=== PATIENT | male | born 1960 | race American Indian/Alaskan Native ===

== ENCOUNTER 2017-08-30 15:51 | Inpatient (IN) | payer MEDICAID, OTHER ==
[2017-08-30] MEDS ORDERED: NACL 0.9% 1000 ML 1,000 ML IV ONE (17:35)
[2017-08-30] MEDS ORDERED: KEPPRA 1,000 MG/NS 0.75% 100ML 1,000 MG/100 ML BAG IV ONE (18:02)
[2017-08-30] MEDS ORDERED: CATAPRES PO ONE (18:03)
[2017-08-30 18:18] LABS: Anion Gap 25 mmol/L; BUN/Creatinine Ratio 8; Blood Urea Nitrogen 9 mg/dL (9-20); Calcium 9.6 mg/dL (8.4-10.2); Carbon Dioxide 21 mmol/L (22-30); Chloride 94.1 mmol/L (98-107); Glucose 131 mg/dL (75-100); Potassium 4.4 mmol/L (3.6-5.0); Sodium 136 mmol/L (137-145)
[2017-08-30 18:27] LABS: Basophils % (Auto) 0.7 % (0.0-1.8); Eosinophils % (Auto) 0.1 % (0.0-4.3); Hematocrit 42.9 % (35.5-45.6); Hemoglobin 14.5 gm/dl (11.8-15.2); Mean Corpuscular HGB Conc 34 % (32-34); Mean Corpuscular Hemoglobin 32 pg (28-32); Mean Corpuscular Volume 95 fl (84-94); Platelet Count 136 K/mm3 (140-440); Red Cell Distribution Width 13.8 % (13.2-15.2); White Blood Count 6.1 K/mm3 (4.5-11.0)
[2017-08-30 18:49] LABS: INR 1.04 (0.87-1.13)
--- NOTE | 2017-08-30 18:51 | XRay Report ---
FINAL REPORT EXAM: XR CHEST 1V AP HISTORY: Fever/Sepsis TECHNIQUE: AP portable semi erect chest x-ray Comparison: None FINDINGS: Heart size is normal. Lungs are hyperlucent and hyperexpanded with mild reticular coarsening of the interstitium. Early ill-defined infiltrates cannot be excluded. Costophrenic angles are sharp. There is ill-defined somewhat linear density projecting vertically overlying the medial left scapula. Bones are osteopenic. There are clips in the region of the epigastrium. IMPRESSION: Hyperexpanded lungs with mild diffuse reticular coarsening of the interstitium. Early infiltrates cannot be excluded. No significant areas of consolidation or mass lesion identified.
[2017-08-30 18:59] LABS: Albumin 3.8 g/dL (3.9-5); Albumin/Globulin Ratio 0.7 %; Bilirubin,Direct 0.8 mg/dL (0-0.2); Bilirubin,Indirect 1.5 mg/dL; Bilirubin,Total 2.3 mg/dL (0.1-1.2)
[2017-08-30] MEDS ORDERED: ZOFRAN IV ONE ×2 (18:59→21:09)
[2017-08-30] MEDS ORDERED: NORMODYNE IV ONE ×2 (18:59→19:03)
[2017-08-30] MEDS ORDERED: ZOFRAN ONE (19:02)
--- NOTE | 2017-08-30 19:30 | XRay Report ---
FINAL REPORT EXAM: XR SHOULDER 2+V RT HISTORY: r shoulder pain s/p seizure TECHNIQUE: Three views right shoulder Comparison: None FINDINGS: The right distal clavicle is located 2 centimeters superiorly to the acromion. There is distal clavicular osteophytic change. This finding may not be acute. There is no overlying soft tissue swelling. The glenohumeral joint space is preserved. The imaged right lung apex is clear. The scapula and coracoid are unremarkable. IMPRESSION: Right acromioclavicular separation with superior location of the distal clavicle relative to the acromion. This finding may be chronic as there is no overlying soft tissue swelling. There is no acute fracture or dislocation identified.
[2017-08-30] MEDS ORDERED: XYLOCAINE 1% MPF 5 mL INFILTRATI ONE (20:56)
[2017-08-30] MEDS ORDERED: ROCEPHIN 1,000 MG in NACL 0.9% 50 ML IV NR (21:00)
[2017-08-30 21:10] LABS: Urine Drugs of Abuse Note Disclamer
[2017-08-30 21:20] LABS: Bacteria,Urine 2+ /HPF (Negative); Bilirubin,Urine NEG (Negative); Blood,Urine LG (Negative); Ketones,Urine NEG (Negative); Leukocyte Esterase,Urine LG (Negative); Nitrite,Urine NEG (Negative)
[2017-08-30 21:23] LABS: WBC,Urine > 182.0 /HPF (0.0-6.0)
[2017-08-30] MEDS ORDERED: LEVAQUIN 750MG/150ML 750 MG/150 ML BAG IV SCH (22:00)
[2017-08-30] MEDS ORDERED: cefTRIAXone 1 GM in NACL 0.9% 20 ML IV ONE (22:00)
--- NOTE | 2017-08-30 22:01 | Ultrasound Report ---
FINAL REPORT PROCEDURE: US ABDOMEN LIMITED TECHNIQUE: Real-time sonography in multiple planes of the gallbladder fossa and CBD with imaging of the adjacent liver, pancreas, and right kidney was performed with image documentation. CPT 43558 HISTORY: Abdominal pain. Nausea/vomiting. COMPARISON: No prior studies are available for comparison. FINDINGS: Liver: Normal size and echotexture with no evidence of cystic or solid mass lesion. Gallbladder: Fluid filled. No gallstones, wall thickening, pericholecystic fluid, or sonographic Gandara's sign. Gallbladder wall thickness 2.3 mm. Common bile duct 4.1 mm. Intrahepatic bile ducts: Normal . Extrahepatic bile ducts: Normal . Pancreas: Normal as visualized with suboptimal depiction of the pancreatic tail. Right kidney: Normal echotexture. No focal renal mass, calculus, or hydronephrosis. Right kidney measures 11.1 x 4.7 x 5.5 cm, cortical thickness 1.5 cm. Other: No free fluid. IMPRESSION: No sonographic evidence of acute abnormality.
[2017-08-30 22:08] LABS: Creatine Kinase MB 2.6 ng/mL (0.0-4.0)
[2017-08-30 22:09] LABS: Creatine Kinase 92 units/L (55-170)
--- NOTE | 2017-08-30 22:23 | Cat Scan Report ---
FINAL REPORT EXAM: CT HEAD/BRAIN WO/W CON HISTORY: HIV,SEIZURES TECHNIQUE: Axial images were performed both before and following IV contrast administration Comparison: None FINDINGS: There is mild diffuse cortical atrophy, advanced for the patient's chronologic age and left parietal subcortical and centrum semi ovale white matter small vessel ischemic disease. There are no acute extra-axial fluid collections or midline shift. There is no mass effect. There are no intraparenchymal blood products. There is advanced atherosclerotic calcific occlusive disease. There is no abnormal enhancement identified. Orbital cones and apices are unremarkable. Nasal septum is deviated to the left. Clear imaged paranasal sinuses. IMPRESSION: No acute bleed, infarct, or mass. No abnormal enhancement. Cortical atrophy and periventricular white matter small vessel ischemic disease
[2017-08-30] MEDS ORDERED: MORPHINE IV ONE (23:01)
[2017-08-30] MEDS ORDERED: ATIVAN IV PRN (23:19)
[2017-08-30] MEDS ORDERED: ZOFRAN IV PRN (23:20)
[2017-08-30] MEDS ORDERED: TYLENOL PO PRN (23:25)
[2017-08-30] MEDS ORDERED: MORPHINE IV PRN (23:30)
--- NOTE | 2017-08-30 23:40 | Emergency Department Report ---
ED Seizure HPI - General Chief Complaint: Fever Stated Complaint: SEIZURE Time Seen by Provider: 08/30/17 19:18 Source: patient, EMS Mode of arrival: Stretcher Limitations: No Limitations - History of Present Illness Initial Comments: 57 YO MALE HIV/AIDS GENTLE MAN IS HERD WITH SEIZURE BECAUSE HE STOPPED TAKING HIS KEPPRA SO THAT HE COULD DRINK ALCOHOL. PER SISTER HE HAS BEEN AWAY AT ANOTHER RELATIVE'S HOUSE FOR ABOUT A WEEK AND HAS BEEN DRINKING WHILE THERE. PT IS VOMITING AND TREMULOUS. RECENT WEIGHT LOSS,FEVER,TACHYCARDIA. MD Complaint: seizure -: Sudden Description of Episode: tonic-clonic movement Witnessed:: Yes Seizure History: known seizure disorder, history of non-compliance Place: home Possible Precipitating Event: alcohol withdrawal, other (SKIPPING HIS KEPPRA) Associated Symptoms: other (NAUSEA/VOMITING) Treatments Prior to Arrival: none - Related Data Home Medications Medication Instructions Recorded Confirmed Last Taken Azithromycin 1,200 mg PO QWEEK 08/30/17 08/30/17 Unknown Carvedilol [Coreg] 6.25 mg PO BID 08/30/17 08/30/17 Unknown Elviteg/Cob/Emtri/Tenof Alafen 1 each PO QDAY 08/30/17 08/30/17 Unknown [Genvoya Tablet] Ferrous Sulfate [Feosol] 325 mg PO BID 08/30/17 08/30/17 Unknown levETIRAcetam [Keppra TAB] 750 mg PO BID 08/30/17 08/30/17 Unknown Allergies Allergy/AdvReac Type Severity Reaction Status Date / Time No Known Allergies Allergy Unverified 08/09/16 15:58 ED Review of Systems ROS: Stated complaint: SEIZURE Other details as noted in HPI Constitutional: fever. denies: chills Eyes: denies: eye pain, eye discharge, vision change ENT: denies: ear pain, throat pain Respiratory: denies: cough, shortness of breath, wheezing Cardiovascular: palpitations. denies: chest pain Endocrine: no symptoms reported Gastrointestinal: nausea, vomiting. denies: abdominal pain, diarrhea Genitourinary: denies: urgency, dysuria Musculoskeletal: denies: back pain, joint swelling, arthralgia Skin: denies: rash, lesions Neurological: denies: headache, weakness, paresthesias Psychiatric: denies: anxiety, depression Hematological/Lymphatic: denies: easy bleeding, easy bruising ED Past Medical Hx - Past Medical History Previous Medical History?: Yes Hx Hypertension: Yes Hx Seizures: Yes Hx HIV: Yes Additional medical history: HIV, RIGHT AC JOINT SEPARATION - Surgical History Past Surgical History?: Yes Additional Surgical History: CIRCUMCISION - Family History Family history: hypertension - Social History Smoking Status: Former Smoker Substance Use Type: None, Alcohol (ABUSE) - Medications Home Medications: Home Medications Medication Instructions Recorded Confirmed Last Taken Type Azithromycin 1,200 mg PO QWEEK 08/30/17 08/30/17 Unknown History Carvedilol [Coreg] 6.25 mg PO BID 08/30/17 08/30/17 Unknown History Elviteg/Cob/Emtri/Tenof Alafen 1 each PO QDAY 08/30/17 08/30/17 Unknown History [Genvoya Tablet] Ferrous Sulfate [Feosol] 325 mg PO BID 08/30/17 08/30/17 Unknown History levETIRAcetam [Keppra TAB] 750 mg PO BID 08/30/17 08/30/17 Unknown History ED Physical Exam - General Limitations: No Limitations General appearance: alert, in distress (VOMITING), cachectic - Head Head exam: Present: atraumatic, normocephalic - Eye Eye exam: Present: normal appearance, EOMI - ENT ENT exam: Present: mucous membranes dry, other (MULTIPLE MISSING TEETH) - Neck Neck exam: Present: normal inspection, full ROM - Respiratory Respiratory exam: Present: normal lung sounds bilaterally. Absent: respiratory distress, rales, rhonchi, stridor, accessory muscle use, decreased breath sounds - Cardiovascular Cardiovascular Exam: Present: normal rhythm, tachycardia - GI/Abdominal GI/Abdominal exam: Present: soft - Rectal Rectal exam: Present: deferred - Extremities Exam Extremities exam: Present: normal inspection, full ROM, other (RIGHT SHOULDER AC DEFORMITY-OLD) - Back Exam Back exam: Present: normal inspection, full ROM - Neurological Exam Neurological exam: Present: alert (POST-ICTAL WITH EMS), oriented X3, CN II-XII intact - Psychiatric Psychiatric exam: Present: normal affect, normal mood - Skin Skin exam: Present: warm, dry, intact, normal color ED Course Vital Signs 08/30/17 08/30/17 08/30/17 17:24 17:30 17:32 Temperature 99.8 F H Pulse Rate 103 H 130 H Respiratory 16 18 22 Rate Blood Pressure 194/132 227/105 O2 Sat by Pulse 96 Oximetry 08/30/17 08/30/17 08/30/17 17:46 18:00 18:16 Temperature Pulse Rate 104 H 164 H 122 H Respiratory 26 H 26 H 25 H Rate Blood Pressure 194/132 194/132 194/132 O2 Sat by Pulse 86 100 Oximetry 08/30/17 08/30/17 08/30/17 18:30 18:46 19:00 Temperature Pulse Rate 103 H 132 H Respiratory 20 18 Rate Blood Pressure 194/132 O2 Sat by Pulse 94 73 L 100 Oximetry 08/30/17 08/30/17 08/30/17 19:16 19:22 19:27 Temperature 99.8 F H Pulse Rate 90 93 H Respiratory 21 Rate Blood Pressure 153/116 153/116 O2 Sat by Pulse 91 Oximetry 08/30/17 08/30/17 08/30/17 19:30 19:46 20:00 Temperature Pulse Rate 81 Respiratory Rate Blood Pressure 170/113 170/113 178/118 O2 Sat by Pulse 100 100 100 Oximetry 08/30/17 08/30/17 08/30/17 20:16 20:30 20:46 Temperature Pulse Rate 97 H Respiratory 18 Rate Blood Pressure 178/118 186/110 186/110 O2 Sat by Pulse 100 100 100 Oximetry 08/30/17 08/30/17 08/30/17 21:00 21:24 21:30 Temperature Pulse Rate 83 96 H 102 H Respiratory 27 H 21 Rate Blood Pressure 175/105 175/105 181/98 O2 Sat by Pulse 100 76 L Oximetry 08/30/17 08/30/17 08/30/17 21:46 22:08 22:16 Temperature Pulse Rate 97 H Respiratory Rate Blood Pressure 181/98 181/98 181/98 O2 Sat by Pulse 100 71 L 82 L Oximetry 08/30/17 08/30/17 08/30/17 22:30 22:46 23:00 Temperature Pulse Rate 83 87 99 H Respiratory 20 20 Rate Blood Pressure 188/105 181/98 181/117 O2 Sat by Pulse 99 98 100 Oximetry 08/30/17 08/30/17 08/30/17 23:14 23:16 23:30 Temperature Pulse Rate 99 H 98 H Respiratory 18 Rate Blood Pressure 181/117 175/109 O2 Sat by Pulse 100 100 Oximetry 08/30/17 08/31/17 08/31/17 23:46 00:00 00:12 Temperature Pulse Rate 98 H Respiratory 18 Rate Blood Pressure 175/109 172/109 172/109 O2 Sat by Pulse 100 100 100 Oximetry 08/31/17 08/31/17 08/31/17 00:16 00:30 00:46 Temperature Pulse Rate 106 H 99 H 90 Respiratory 14 21 32 H Rate Blood Pressure 172/109 176/103 176/103 O2 Sat by Pulse 100 100 100 Oximetry 08/31/17 08/31/17 08/31/17 01:00 01:16 01:30 Temperature Pulse Rate 105 H 108 H Respiratory 24 16 21 Rate Blood Pressure 176/103 169/113 158/115 O2 Sat by Pulse 94 100 100 Oximetry 08/31/17 08/31/17 08/31/17 01:46 02:00 02:16 Temperature Pulse Rate 107 H 97 H 101 H Respiratory 27 H 22 24 Rate Blood Pressure 158/115 156/114 156/114 O2 Sat by Pulse 100 100 100 Oximetry 08/31/17 08/31/17 02:30 03:12 Temperature Pulse Rate 95 H Respiratory 19 20 Rate Blood Pressure O2 Sat by Pulse 100 97 Oximetry - Reevaluation(s) Reevaluation #1: 08/31/17 03:45 PT IS TACHYCRDIC AND TREMULOUS. I BELIEVE HE IS AN ALCOHOLIC. HE STOPPED HIS KEPPRA INORDER TO DRINK ALCOHOL. ED Medical Decision Making - Lab Data Result diagrams: 08/30/17 17:52 08/30/17 17:52 - EKG Data -: EKG Interpreted by Mt EKG shows normal: sinus rhythm, axis - EKG Data Interpretation: nonspecific ST-T wave kristopher, LV[facility] - Radiology Data Radiology results: report reviewed (CXR:HYPEREXPANDED LUNGS WITH MILD DIFFUSE RETICUAR COARSENING OF THE INTERSTITIUM.EARLY INFILTRATE CANNOT BE RULED OUT XRAY RIGTH SHOULDER:RIGHT ACROMIOCLAVICULAR SEPARATION WITH SUPERIOR LOCATION OF THE DISTAL CLAVICLE RELATICVE TO THE ACROMION, CHRONIC; CT HEAD; NEGATIVE FOR ACUTE, CORTICAL WHITE MATTER DISEASE) Critical care attestation.: If time is entered above; I have spent that time in minutes in the direct care of this critically ill patient, excluding procedure time. ED Disposition Clinical Impression: Seizure, Alcohol abuse, HIV (human immunodeficiency virus infection), Abnormal LFTs CHF exacerbation Qualifiers: Congestive heart failure type: unspecified congestive heart failure type Qualified Code(s): I50.9 - Heart failure, unspecified Sepsis Qualifiers: Sepsis type: sepsis due to unspecified organism Qualified Code(s): A41.9 - Sepsis, unspecified organism UTI (urinary tract infection) Qualifiers: Urinary tract infection type: acute cystitis Hematuria presence: with hematuria Qualified Code(s): N30.01 - Acute cystitis with hematuria Fever Qualifiers: Fever type: unspecified Qualified Code(s): R50.9 - Fever, unspecified Altered mental status Qualifiers: Altered mental status type: unspecified Qualified Code(s): R41.82 - Altered mental status, unspecified Hypertension Qualifiers: Hypertension type: unspecified Qualified Code(s): I10 - Essential (primary) hypertension Disposition: OP ADMIT IP TO THIS HOSP Is pt being admited?: Yes Does the pt Need Aspirin: No Condition: Serious Time of Disposition: 03:59 (CASE REVIEWED WITH DR VAZQUEZ AND [facility] HE IS AWARE OF THE ELEVATD DDIMER AND KERMIT FOLLOW THE V/Q SCAN)
[2017-08-30] MEDS ORDERED: LASIX IV ONE (23:42)
[2017-08-31] MEDS ORDERED: NACL ONE (02:00)
[2017-08-31] MEDS ORDERED: REGLAN IV ONE (02:45)
[2017-08-31] MEDS ORDERED: REGLAN ONE (02:48)
[2017-08-31] MEDS ORDERED: NACL 0.9% 50 ML ONE (02:48)
[2017-08-31] MEDS ORDERED: NACL 0.9% IV ONE (02:53)
[2017-08-31] MEDS ORDERED: REGLAN IV PRN (03:43)
[2017-08-31] MEDS ORDERED: ATIVAN IV ONE (03:43)
[2017-08-31] MEDS ORDERED: VITAMIN B-1 100 MG, FOLVITE 1 MG, INFUVITE 10 ML in NACL 0.9% 1000 ML 1,000 ML IV ONE (03:43)
--- NOTE | 2017-08-31 03:56 | Cat Scan Report ---
FINAL REPORT EXAM: CT ANGIO CHEST HISTORY: DDIMER 1400 FALL RT UPPER CHWEST PAIN TECHNIQUE: A CT angiogram was performed following the intravenous injection of 100 cc of Omnipaque 350. MIP rotational, sagittal and coronal reconstructions were reviewed. FINDINGS: The lungs are emphysematous with changes most prominent in the upper lobes. There scarring in both lung apices. In the left upper lobe there is bronchiectatic changes with non specific nodularity. There is an additional 5.1 millimeter nodule laterally in the right upper lobe. A smaller 2-3 millimeter nodule is seen laterally in the right middle lobe. There is mild scarring in the right lung base There is no evidence of pulmonary embolus or congestion. Heart size is normal. The thoracic aorta is normal in configuration. There is no evidence of adenopathy. There is considerable fluid seen in the esophagus all the way into just below the thoracic inlet. Whether this is related to GE reflux is uncertain. There is a small hiatal hernia at the GE junction. The adrenal glands appear normal. At the thoracic inlet the thyroid gland appears normal. The skeletal structures show no evidence of fracture or soft tissue injury. IMPRESSION: No evidence of pulmonary embolus or aortic dissection. No evidence of acute rib fracture or pneumothorax. Emphysematous changes both lungs with non specific bronchiectatic changes and nodularity in left upper lobe. Additional nodules seen in the right middle lobe and right upper lobe. Follow-up studies recommended 3-6 months to confirm stability. Fluid seen in the esophagus as described with small hiatal hernia. Whether this is related to GE reflux is uncertain
--- NOTE | 2017-08-31 04:55 | Cat Scan Report ---
FINAL REPORT EXAM: CT LOWER EXTREMITY RT W CON HISTORY: DDIMER 1400 TECHNIQUE: Routine axial imaging was obtained of the right lower extremity following the intravenous injection of 100 cc of Omnipaque 350. The imaging was obtained from the mid pelvis to the ankle. Sagittal and coronal reconstructions were reviewed. FINDINGS: There is partially occlusive thrombus extending from the right common femoral vein distally thigh through to the popliteal vein. There is a partially occlusive thrombus in the proximal calf veins as well. The arteries enhance normally. The musculature appears normal. The hip joint is unremarkable. Along the floor pelvis the bladder and prostate gland appear normal. Free fluid is not seen. The skeletal structures are unremarkable. IMPRESSION: Partially occlusive acute deep venous thrombosis extending from common femoral vein through the level of the popliteal vein and proximal calf veins. No evidence of arterial occlusion.
--- NOTE | 2017-08-31 05:08 | Cat Scan Report ---
FINAL REPORT EXAM: CT LOWER EXTREMITY LT W CON HISTORY: DDIMER 1400 TECHNIQUE: Routine axial imaging was obtained of the left lower extremity extending from the mid pelvis to just below the knee following intravenous injection of 100 cc of Omnipaque 350. Sagittal and coronal reconstructions were reviewed. FINDINGS: There are filling defects in the deep venous system extending from common femoral vein through the popliteal vein. There also linear defects in the left external iliac vein. The findings are compatible with acute deep venous thrombosis. The arterial structures enhance normally. The musculature appears normal. There are no bony abnormalities. In the pelvis the bladder appears normal. The prostate gland appears normal also. Free fluid is not seen. IMPRESSION: Partially occlusive DVT extending from the left external iliac vein through the popliteal vein. No evidence of arterial thrombosis.
[2017-08-31] MEDS ORDERED: ZOSYN/NS 3.375GM/50ML 3.375 GM/50 ML BAG IV SCH (06:00)
[2017-08-31] MEDS: KEPPRA PO SCH ×2 (09:57→21:59)
[2017-08-31] MEDS: FEOSOL PO SCH ×2 (09:57→21:58)
[2017-08-31] MEDS: COREG PO SCH ×2 (09:57→21:58)
[2017-08-31] MEDS ORDERED: NON-FORMULARY (Levetiracetam [Keppra Tab] 750 MG) PO SCH (10:00)
[2017-08-31] MEDS ORDERED: NON-FORMULARY (Elviteg/Cob/Emtri/Tenof Alafen [Genvoya Tablet] 1 EACH) PO SCH (10:00)
[2017-08-31] MEDS ORDERED: HEPARIN SUB-Q SCH (10:00)
--- NOTE | 2017-08-31 10:05 | History and Physical Report ---
CHIEF COMPLAINT: Seizure attack. HISTORY OF PRESENT ILLNESS: The patient is a 57-year-old male brought in because of seizure attack. The patient said he has stopped taking his Keppra so that he could drink some alcohol and had seizure attack yesterday morning and was still confused and weak from that and had another attack in the afternoon according to the sister. His sister said that the patient has been drinking alcohol while staying at another relative's house and stopped taking his Keppra. There is a history of associated nausea and vomiting and shaking sensation. The patient also has weight loss, fever, and rapid heart rate. There was no history of chest pain but there was a history of right shoulder pain following a fall that the patient before he had seizure attack yesterday. There was no history of shortness of breath and no history of chills. PAST MEDICAL HISTORY: Pertinent for hypertension, seizure disorder, HIV infection, and right acromioclavicular joint separation. Also pertinent for confusion. FAMILY HISTORY: Pertinent for hypertension. SOCIAL HISTORY: The patient drinks regularly. He used to smoke cigarettes but does not smoke anymore and does not use illicit drugs. MEDICATIONS: The patient is on Zithromax 1200 mg every week and Coreg 6.25 mg p.o. b.i.d., elvitegravir/cobicistat/emtricitabine/tenofovir known as Genvoya tablet 1 by mouth daily. The patient is also on ferrous sulfate 325 mg by mouth twice daily and Keppra 750 mg by mouth twice daily. ALLERGIES: There are no known drug allergies. REVIEW OF SYSTEMS: CONSTITUTIONAL: There is fever, but no chills, no diaphoresis. HEENT: There is no headache or sore throat. CARDIOVASCULAR SYSTEM: There is no chest pain or orthopnea. RESPIRATORY SYSTEM: There is no shortness of breath or cough. GASTROINTESTINAL SYSTEM: Nausea and vomiting present. No abdominal pain. No diarrhea or constipation. NEUROLOGICAL SYSTEM: Seizure attack present and period of confusion noted. MUSCULOSKELETAL SYSTEM: Right shoulder pain noted. No joint swelling. DERMATOLOGICAL: There is no skin rash or itching. GENITOURINARY: There is no dysuria, hematuria or flank pain. Rest of system review is normal. PHYSICAL EXAMINATION: GENERAL: At the time of exam, the patient was found to be alert, oriented x3, not in acute distress. VITAL SIGNS: Shows normal temperature with pulse of 95, respiration 19, blood pressure 156/114 and O2 sat of 100% on room air. HEENT: Shows pupils to be equal, round, and reactive to light and accommodation. Extraocular muscles are intact. NECK: Supple with no JVD or carotid bruit. CARDIOVASCULAR SYSTEM: Show first and second heart sounds with no gallops or murmur. RESPIRATORY SYSTEM: Show good air entry on both sides of the lung with no abnormal breath sounds. GASTROINTESTINAL SYSTEM: Show abdomen to be full, soft, nontender with no organomegaly or rigidity. NEUROLOGICAL: Shows no deficit. MUSCULOSKELETAL: Show no joint swelling or tenderness. DERMATOLOGICAL SYSTEM: Showing no skin rash. GENITOURINARY: Showing no costovertebral angle tenderness. PERTINENT LABORATORY DATA AND IMAGING STUDIES: The patient had CT angiogram of the chest done that shows no pulmonary embolism. The patient had abdominal ultrasound done that shows no sonographic evidence of acute abnormalities. The patient also had CT of the head without contrast done that shows no acute bleed, infarct or mass, with no abnormality seen; however, critical atrophy and periventricular white matter, small vessel ischemic disease was found. The patient had x-ray of the right shoulder done, and x-ray showed no acute fracture or dislocation but there is right acromioclavicular separation with superior location of the distal clavicle, related to the acromion, and this is chronic in nature. The patient also had chest x-ray done that shows hyperextended lungs with mild diffuse reticular changes of the interstitial and the radiologist say that early infiltration cannot be excluded and no significant area of consolidation or mass lesion was found. The patient's lab results show CBC with normal white count, normal hemoglobin and normal hematocrit, with CBC differential showing elevated segmented neutrophil of 88.3%. The patient's D-dimer was high with a value of [address] angio of the chest done. The patient's chemistry shows slightly low sodium of 133 with low chloride of 94.1 and low CO2 of 21 and elevated lactic acid level of 6.6, with a repeat lactic acid 4 hours later showing a value of 3.0. The patient's total bilirubin level was high with a value of 3.3 with a high direct bilirubin of 0.8 and liver transaminases show high AST of 143 with also a high ALT of 82 corresponding to alcohol ingestion. The patient's brain natriuretic peptide level was high with a value of 1868 and albumin level was low with a value of 3.8. The patient's urinalysis showed large urine leukocyte esterase level, negative nitrites and high urine wbc's of greater than 182 with 2+ bacteria suggestive of urinary tract infection. The patient's urine drug screen was unremarkable. DIAGNOSES: 1. Seizure attack. 2. Acute gastritis. 3. Sepsis. PLAN: The patient will be admitted to medical floor and will be on sequential compressive device, a DVT prophylactic measure. The patient will have Neurology consult with Dr. Horan or whoever is on for the day for management of the seizure disorder. The patient will be on Tylenol 650 mg every 4 hours as needed for fever and headache and will also be on heparin 5000 units subcutaneously every 12 hours for DVT prophylaxis. The patient has already received 1000 mg of Keppra IV and will be on Levaquin 750 mg daily for treatment of urinary tract infection. The patient will be on morphine 2 mg IV every 4 hours as needed for pain and will be on normal saline at 150 mL an hour for treatment of sepsis. The patient will be on IV Zofran 4 mg every 8 hours for nausea and vomiting and will be on Zosyn 3.375 grams every 8 hours. The patient's home medication will be reconciled and started accordingly. We will include Keppra 750 mg by mouth twice daily. JOB# [id number] OCN/NTS BETHANYD
[2017-08-31] MEDS ORDERED: ZESTRIL ONE (10:46)
[2017-08-31] MEDS: ZESTRIL PO SCH (10:51)
[2017-08-31] MEDS: NORVASC PO SCH (10:51)
--- NOTE | 2017-08-31 13:26 | Consultation ---
History of Present Illness Consult date: 08/31/17 History of present illness: from the history the seizures are chronic and usually controlled with keppra,,, , however he had stopped that medication w/o taper see old record Medications and Allergies Allergies Allergy/AdvReac Type Severity Reaction Status Date / Time No Known Allergies Allergy Unverified 08/09/16 15:58 Home Medications Medication Instructions Recorded Confirmed Last Taken Type Azithromycin 1,200 mg PO QWEEK 08/30/17 08/30/17 Unknown History Carvedilol [Coreg] 6.25 mg PO BID 08/30/17 08/30/17 Unknown History Elviteg/Cob/Emtri/Tenof Alafen 1 each PO QDAY 08/30/17 08/30/17 Unknown History [Genvoya Tablet] Ferrous Sulfate [Feosol] 325 mg PO BID 08/30/17 08/30/17 Unknown History levETIRAcetam [Keppra TAB] 750 mg PO BID 08/30/17 08/30/17 Unknown History Active Meds: Active Medications Acetaminophen (Tylenol) 650 mg PO Q4H PRN PRN Reason: For Pain/Fever/Headache Amlodipine Besylate (Norvasc) 10 mg PO QDAY [facility] Last Admin: 08/31/17 10:51 Dose: 10 mg Carvedilol (Coreg) 6.25 mg PO BID [facility] Last Admin: 08/31/17 09:57 Dose: 6.25 mg Ferrous Sulfate (Feosol) 325 mg PO BID [facility] Last Admin: 08/31/17 09:57 Dose: 325 mg Heparin Sodium (Porcine) (Heparin) 5,000 unit SUB-Q Q12HR [facility] Last Admin: 08/31/17 09:57 Dose: 5,000 unit Levofloxacin/Dextrose (Levaquin 750mg/150ml) 750 mg in 150 mls @ 100 mls/hr IV DAILY@2200 [facility] Sodium Chloride (Nacl 0.9% 1000 Ml) 1,000 mls @ 150 mls/hr IV DIRECT [facility] Levetiracetam (Keppra) 750 mg PO BID [facility] Last Admin: 08/31/17 09:57 Dose: 750 mg Lisinopril (Zestril) 40 mg PO QDAY [facility] Last Admin: 08/31/17 10:51 Dose: 40 mg Lorazepam (Ativan) 1 mg IV Q2H PRN PRN Reason: Seizures Last Admin: 08/31/17 05:28 Dose: 1 mg Metoclopramide HCl (Reglan) 10 mg IV Q6H PRN PRN Reason: Nausea And Vomiting Miscellaneous Medication (Elviteg/Cob/Emtri/Tenof Alafen [Genvoya Tablet]) 1 each PO QDAY [facility] Last Admin: 08/31/17 10:50 Dose: Not Given Morphine Sulfate (Morphine) 2 mg IV Q4H PRN PRN Reason: Pain, Moderate (4-6) Ondansetron HCl (Zofran) 4 mg IV Q8H PRN PRN Reason: Nausea And Vomiting Physical Examination - Vital Signs Vital Signs: Vital Signs Resp 16 08/30/17 17:24 Results - Laboratory Findings CBC and BMP: 08/30/17 17:52 08/30/17 17:52 Abnormal Lab Findings: Abnormal Labs 08/30/17 08/30/17 08/30/17 17:52 17:52 17:52 MCV 95 H Plt Count 136 L Lymph % (Auto) 6.9 L Lymph # 0.4 L Seg Neutrophils % 88.3 H D-Dimer Sodium 136 L Chloride 94.1 L Carbon Dioxide 21 L Glucose 131 H Lactic Acid 6.60 H* Total Bilirubin Direct Bilirubin AST ALT Alkaline Phosphatase NT-Pro-B Natriuret Pep Total Protein Albumin Urine WBC (Auto) 08/30/17 08/30/17 08/30/17 17:52 21:07 21:20 MCV Plt Count Lymph % (Auto) Lymph # Seg Neutrophils % D-Dimer 1484.20 H Sodium Chloride Carbon Dioxide Glucose Lactic Acid Total Bilirubin 2.30 H Direct Bilirubin 0.8 H AST 143 H ALT 82 H Alkaline Phosphatase 191 H NT-Pro-B Natriuret Pep Total Protein 9.0 H Albumin 3.8 L Urine WBC (Auto) > 182.0 H 08/30/17 21:20 MCV Plt Count Lymph % (Auto) Lymph # Seg Neutrophils % D-Dimer Sodium Chloride Carbon Dioxide Glucose Lactic Acid Total Bilirubin Direct Bilirubin AST ALT Alkaline Phosphatase NT-Pro-B Natriuret Pep 1858 H Total Protein Albumin Urine WBC (Auto)
[2017-08-31] MEDS: NACL 0.9% 1000 ML 1,000 ML IV SCH (17:23)
--- NOTE | 2017-08-31 19:08 | Progress Note ---
Assessment and Plan - Acute heart failure: ECHO, Daily weight, Strick Is and Os, 2G Na diet Furosemide 20 mg iv daily, Carvedilol 25 mg qd, Lisinopril 20 mg qd, Atorvastatin 20 mg po daily. Cardiology consult in view of multiple medical problem such as tansaminasemia and alcohol abuse that will require iv hydration and Banana bag - Seizure d/o: Old. Likely alcohol induce. Pt stopped his Keppra so as to be able to drink alcohol hence this recurrence Continue receommence Keppra. - Alcohol hepatitis: Serial live enzyme. Cautious hydration. GI consult - Jose LE DVT. CTA of chest was negative for PE Commence iv heparine - Thrombocytopenia Serial platelet monitor. Hematology consult - UTI Urine culture yielded no growth to date. -SIRS F/u on blood cx. commence pt on Levaquin - DVT prophylaxisalready on Heparin for DVT and GI PPx with pepcid Subjective Date of service: 08/31/17 Principal diagnosis: Seizure d/o, alcohol induced, CHF, alcoholic hepatits Interval history: Has No seizures today. Denies any abdominal pain or shortness of breath. Objective - Constitutional Vitals: Vital Signs - 12hr 08/31/17 08/31/17 08/31/17 07:30 08:00 08:30 Pulse Rate 117 H 108 H 101 H Respiratory 23 22 22 Rate Blood Pressure 160/108 163/112 163/110 O2 Sat by Pulse 100 100 100 Oximetry 08/31/17 08/31/17 08/31/17 09:00 09:30 09:57 Pulse Rate 99 H 96 H 118 H Respiratory 22 17 Rate Blood Pressure 171/115 173/112 174/112 O2 Sat by Pulse 100 100 Oximetry 08/31/17 08/31/17 08/31/17 10:00 10:30 10:51 Pulse Rate 103 H 92 H 89 Respiratory 15 18 Rate Blood Pressure 176/121 170/109 170/109 O2 Sat by Pulse 94 100 Oximetry 08/31/17 08/31/17 08/31/17 11:00 11:30 12:52 Pulse Rate 96 H 100 H Respiratory 15 24 11 L Rate Blood Pressure 165/106 152/84 152/84 O2 Sat by Pulse 100 Oximetry 08/31/17 08/31/17 08/31/17 13:00 13:30 14:00 Pulse Rate 87 92 H 80 Respiratory 20 15 18 Rate Blood Pressure 126/76 152/84 135/80 O2 Sat by Pulse 100 85 93 Oximetry 08/31/17 16:06 Pulse Rate 81 Respiratory Rate Blood Pressure O2 Sat by Pulse Oximetry General appearance: Present: no acute distress, well-nourished - EENT Eyes: PERRL, EOM intact - Neck Neck: supple, normal ROM - Respiratory Respiratory effort: normal Respiratory: bilateral: CTA - Cardiovascular Rhythm: regular Heart Sounds: Present: S1 & S2. Absent: gallop, rub Extremities: pulses intact, No edema, normal color, Full ROM - Gastrointestinal General gastrointestinal: Present: soft, non-tender, non-distended, normal bowel sounds - Integumentary Integumentary: clear, warm, dry - Musculoskeletal Musculoskeletal: 1, strength equal bilaterally - Neurologic Neurologic: moves all extremities - Psychiatric Psychiatric: memory intact, appropriate mood/affect, intact judgment & insight - Labs CBC & Chem 7: 08/30/17 17:52 08/30/17 17:52 Labs: Abnormal lab results 08/30/17 08/30/17 08/30/17 Range/Units 21:07 21:20 21:20 D-Dimer 1484.20 H (0-234) ng/mlDDU NT-Pro-B Natriuret Pep 1858 H (0-900) pg/mL Urine WBC (Auto) > 182.0 H (0.0-6.0) /HPF - Imaging and cardiology CT scan - chest: report reviewed CT Scan - head: report reviewed
[2017-08-31] MEDS ORDERED: HEPARIN/ 0.45% NACL-25,000 UNIT/500 ML 25,000 UNIT/500 ML BAG IV SCH (20:00)
[2017-08-31 20:59] LABS: Hemoglobin 12.5 gm/dl (11.8-15.2)
[2017-08-31] MEDS ORDERED: HEPARIN 10,000 UNITS/10 ML IV ONE (21:00)
[2017-08-31] MEDS ORDERED: LASIX IV SCH (21:00)
[2017-08-31 21:38] LABS: INR 1.13 (0.87-1.13)
[2017-08-31 21:39] LABS: Partial Thromboplastin Time 34.2 Sec. (24.2-36.6)
[2017-08-31] MEDS: LEVAQUIN 750MG/150ML 750 MG/150 ML BAG IV SCH (22:06)
[2017-08-31] MEDS: FOLVITE 1 MG in NACL 0.9% 50 ML IV SCH (22:16)
[2017-08-31] MEDS: VITAMIN B-1 100 MG in NACL 0.9% 50 ML IV SCH (22:16)
[2017-09-01] MEDS: NACL 0.9% 1000 ML 1,000 ML IV SCH (02:22)
[2017-09-01 05:04] LABS: Eosinophils % (Auto) 1.6 % (0.0-4.3); Hematocrit 32.2 % (35.5-45.6); Hemoglobin 11.2 gm/dl (11.8-15.2); Mean Corpuscular HGB Conc 35 % (32-34); Mean Corpuscular Hemoglobin 33 pg (28-32); Mean Corpuscular Volume 95 fl (84-94); Red Blood Count 3.38 M/mm3 (3.65-5.03); Red Cell Distribution Width 13.6 % (13.2-15.2)
[2017-09-01 05:18] LABS: Platelet Count 80 K/mm3 (140-440)
[2017-09-01 05:28] LABS: Albumin 2.8 g/dL (3.9-5); Albumin/Globulin Ratio 0.7 %; Bilirubin,Total 2.4 mg/dL (0.1-1.2); Calcium 8.9 mg/dL (8.4-10.2); Chloride 101.8 mmol/L (98-107); Magnesium 1.3 mg/dL (1.7-2.3); Phosphorous 2.6 mg/dL (2.5-4.5); Potassium 3.6 mmol/L (3.6-5.0)
--- NOTE | 2017-09-01 10:27 | Gastroenterology Consultation ---
<NICOLEKATHYEWA Shi - Last Filed: 09/01/17 11:20> History of Present Illness - Reason for Consult Consult date: 09/01/17 alcoholic hepatitis Requesting physician: ADE ANDERSON - History of Present Illness Patient is a 57 y/o male with PMH of seizures, HTN, HIV and alcohol abuse who presented to the ED due to seizure with associated vomiting and shaking after stopping his Keppra so that he could drink alcohol. He was found to have a fever , tachycardia, and elevated LFTs on admission. Head CT was negative. He is currently being treated for acute heart failure, seizure disorder, UTI, SIRS, and matthew LE DVT. GI has been consulted for alcoholic hepatitis. On admission labs revealed AST 143, ALT, 82, alk phos 191, and T. matthew 2.3. They are now trending down. Abd U/S was negative. This morning pt was resting in bed w/o acute distress. He is currently w/o GI complaints. He reports N/V is now resolved. Denies abd pain, jaundice, pruritus, dysphagia, hematemesis, melena, diarrhea, constipation, or hematochezia. No hx or Fhx of liver disease. Reports no hx of IV drug use. Admits to drinking 1/2 a pint and a couple of beers daily. Past History Past Medical History: hypertension, seizures, other (AIDS, right AC joint seperation) Past Surgical History: Other (CIRCUMCISION) Social history: lives with family, alcohol abuse Family history: hypertension Medications and Allergies Allergies Allergy/AdvReac Type Severity Reaction Status Date / Time No Known Allergies Allergy Unverified 08/09/16 15:58 Home Medications Medication Instructions Recorded Confirmed Last Taken Type Azithromycin 1,200 mg PO QWEEK 08/30/17 08/30/17 Unknown History Carvedilol [Coreg] 6.25 mg PO BID 08/30/17 08/30/17 Unknown History Elviteg/Cob/Emtri/Tenof Alafen 1 each PO QDAY 08/30/17 08/30/17 Unknown History [Genvoya Tablet] Ferrous Sulfate [Feosol] 325 mg PO BID 08/30/17 08/30/17 Unknown History levETIRAcetam [Keppra TAB] 750 mg PO BID 08/30/17 08/30/17 Unknown History Active Meds: Active Medications Acetaminophen (Tylenol) 650 mg PO Q4H PRN PRN Reason: For Pain/Fever/Headache Amlodipine Besylate (Norvasc) 10 mg PO QDAY [facility] Last Admin: 08/31/17 10:51 Dose: 10 mg Carvedilol (Coreg) 6.25 mg PO BID [facility] Last Admin: 08/31/17 21:58 Dose: 6.25 mg Ferrous Sulfate (Feosol) 325 mg PO BID [facility] Last Admin: 08/31/17 21:58 Dose: 325 mg Furosemide (Lasix) 20 mg IV Q24H [facility] Last Admin: 08/31/17 21:57 Dose: 20 mg Levofloxacin/Dextrose (Levaquin 750mg/150ml) 750 mg in 150 mls @ 100 mls/hr IV DAILY@2200 [facility] Last Admin: 08/31/17 22:06 Dose: 100 mls/hr Sodium Chloride (Nacl 0.9% 1000 Ml) 1,000 mls @ 150 mls/hr IV DIRECT [facility] Last Admin: 09/01/17 02:22 Dose: 150 mls/hr Folic Acid 1 mg/ Sodium (Chloride) 50.2 mls @ 200.8 mls/hr IV Q24H [facility] Last Admin: 08/31/17 22:16 Dose: 200.8 mls/hr Thiamine HCl 100 mg/ Sodium (Chloride) 51 mls @ 100 mls/hr IV Q24H [facility] Last Admin: 08/31/17 22:16 Dose: 100 mls/hr Heparin Sodium/Sodium Chloride (Heparin/ 0.45% Nacl-25,000 Unit/500 Ml) 25,000 unit in 500 mls @ 15 mls/hr IV TITR [facility]; 750 UNITS/HR PRN Reason: Protocol Last Titration: 09/01/17 05:22 Dose: 800 units/hr, 16 mls/hr Levetiracetam (Keppra) 750 mg PO BID [facility] Last Admin: 08/31/17 21:59 Dose: 750 mg Lisinopril (Zestril) 40 mg PO QDAY [facility] Last Admin: 08/31/17 10:51 Dose: 40 mg Lorazepam (Ativan) 1 mg IV Q2H PRN PRN Reason: Seizures Last Admin: 08/31/17 05:28 Dose: 1 mg Metoclopramide HCl (Reglan) 10 mg IV Q6H PRN PRN Reason: Nausea And Vomiting Miscellaneous Medication (Elviteg/Cob/Emtri/Tenof Alafen [Genvoya Tablet]) 1 each PO QDAY [facility] Last Admin: 08/31/17 10:50 Dose: Not Given Morphine Sulfate (Morphine) 2 mg IV Q4H PRN PRN Reason: Pain, Moderate (4-6) Ondansetron HCl (Zofran) 4 mg IV Q8H PRN PRN Reason: Nausea And Vomiting Review of Systems - Review of Systems Gastrointestinal: no abdominal pain, no nausea, no vomiting, no hematemesis, no coffee ground emesis, no melena, no hematochezia, no jaundice Exam - Constitutional Vital Signs: Temp Pulse Resp BP Pulse Ox 98.6 F 78 18 156/92 99 09/01/17 09:13 09/01/17 09:13 09/01/17 09:13 09/01/17 09:13 09/01/17 09:13 General appearance: no acute distress, other (thin appearing) - EENT Eyes: PERRL, EOM intact ENT: hearing intact - Respiratory Respiratory: bilateral: CTA - Cardiovascular Rhythm: regular Heart Sounds: Present: S1 & S2 Extremities: No edema - Gastrointestinal General gastrointestinal: Present: soft, non-tender, non-distended, normal bowel sounds - Integumentary Integumentary: Present: warm, dry - Neurologic Neurological: alert and oriented x3 - Labs CBC & Chem 7: 09/01/17 04:50 09/01/17 04:50 Lab Results: Laboratory Results - last 24 hr 08/31/17 08/31/17 08/31/17 20:38 20:38 21:07 WBC RBC Hgb 12.5 Hct 37.0 MCV MCH MCHC RDW Plt Count 93 L Lymph % (Auto) [place] % (Auto) Eos % (Auto) Baso % (Auto) Lymph # [place] # Eos # Baso # Seg Neutrophils % Seg Neutrophils # PT 15.1 H INR 1.13 APTT 34.2 Heparin Anti-Xa Level Sodium Potassium Chloride Carbon Dioxide Anion Gap BUN Creatinine Estimated GFR BUN/Creatinine Ratio Glucose Calcium Phosphorus Magnesium Total Bilirubin AST ALT Alkaline Phosphatase Total Protein Albumin Albumin/Globulin Ratio Lipase 27 09/01/17 09/01/17 09/01/17 04:50 04:50 04:50 WBC 3.0 L RBC 3.38 L Hgb 11.2 L Hct 32.2 L MCV 95 H MCH 33 H MCHC 35 H RDW 13.6 Plt Count 80 L Lymph % (Auto) 12.0 L [place] % (Auto) 9.5 H Eos % (Auto) 1.6 Baso % (Auto) 1.0 Lymph # 0.4 L [place] # 0.3 Eos # 0.0 Baso # 0.0 Seg Neutrophils % 75.9 H Seg Neutrophils # 2.3 PT INR APTT Heparin Anti-Xa Level 0.20 L Sodium 137 Potassium 3.6 Chloride 101.8 Carbon Dioxide 20 L Anion Gap 19 BUN 16 Creatinine 1.6 H Estimated GFR 55 BUN/Creatinine Ratio 10 Glucose 79 Calcium 8.9 Phosphorus 2.60 Magnesium 1.30 L Total Bilirubin 2.40 H AST 86 H ALT 47 Alkaline Phosphatase 122 Total Protein 7.0 D Albumin 2.8 L Albumin/Globulin Ratio 0.7 Lipase Assessment and Plan 1.elevated LFTs -LFTs trending down -abd u/s negative -hepatitis panel showed Hep Bs Antigen reactive- infection status unknown at this time- will need to be determined if active infection vs domant with further workup/treatment as an outpatient -etiology unclear- possibly multifactorial with ETOH abuse and Hep B -pt is clinically asymptomatic -alcohol cessation discussed with pt -CIWA protocol -continue supportive care -further recommendations to follow <NATASHA GOMEZ - Last Filed: 09/01/17 15:13> Medications and Allergies Active Meds: Active Medications Acetaminophen (Tylenol) 650 mg PO Q4H PRN PRN Reason: For Pain/Fever/Headache Ferrous Sulfate (Feosol) 325 mg PO BID [facility] Last Admin: 09/01/17 10:35 Dose: 325 mg Fondaparinux (Arixtra) 7.5 mg SUB-Q QDAY [facility] Levofloxacin/Dextrose (Levaquin 750mg/150ml) 750 mg in 150 mls @ 100 mls/hr IV DAILY@2200 [facility] Last Admin: 08/31/17 22:06 Dose: 100 mls/hr Sodium Chloride (Nacl 0.9% 1000 Ml) 1,000 mls @ 150 mls/hr IV DIRECT [facility] Last Admin: 09/01/17 02:22 Dose: 150 mls/hr Folic Acid 1 mg/ Sodium (Chloride) 50.2 mls @ 200.8 mls/hr IV Q24H [facility] Last Admin: 08/31/17 22:16 Dose: 200.8 mls/hr Thiamine HCl 100 mg/ Sodium (Chloride) 51 mls @ 100 mls/hr IV Q24H [facility] Last Admin: 08/31/17 22:16 Dose: 100 mls/hr Magnesium Sulfate 1 gm/ Sodium (Chloride) 52 mls @ 52 mls/hr IV ONCE ONE Stop: 09/01/17 17:59 Levetiracetam (Keppra) 750 mg PO BID [facility] Last Admin: 09/01/17 10:35 Dose: 750 mg Lisinopril (Zestril) 40 mg PO QDAY [facility] Last Admin: 09/01/17 10:35 Dose: 40 mg Lorazepam (Ativan) 1 mg IV Q2H PRN PRN Reason: Seizures Last Admin: 08/31/17 05:28 Dose: 1 mg Metoclopramide HCl (Reglan) 10 mg IV Q6H PRN PRN Reason: Nausea And Vomiting Metoprolol Tartrate (Lopressor) 25 mg PO TID [facility] Last Admin: 09/01/17 14:42 Dose: Not Given Miscellaneous Medication (Elviteg/Cob/Emtri/Tenof Alafen [Genvoya Tablet]) 1 each PO QDAY [facility] Morphine Sulfate (Morphine) 2 mg IV Q4H PRN PRN Reason: Pain, Moderate (4-6) Ondansetron HCl (Zofran) 4 mg IV Q8H PRN PRN Reason: Nausea And Vomiting Exam - Constitutional Vital Signs: Temp Pulse Resp BP Pulse Ox 98.6 F 71 18 156/92 99 09/01/17 09:13 09/01/17 10:35 09/01/17 09:13 09/01/17 10:35 09/01/17 09:13 - Labs CBC & Chem 7: 09/01/17 04:50 09/01/17 04:50 Lab Results: Laboratory Results - last 24 hr 08/31/17 08/31/17 08/31/17 20:38 20:38 21:07 WBC RBC Hgb 12.5 Hct 37.0 MCV MCH MCHC RDW Plt Count 93 L Lymph % (Auto) [place] % (Auto) Eos % (Auto) Baso % (Auto) Lymph # [place] # Eos # Baso # Seg Neutrophils % Seg Neutrophils # PT 15.1 H INR 1.13 APTT 34.2 Heparin Anti-Xa Level Sodium Potassium Chloride Carbon Dioxide Anion Gap BUN Creatinine Estimated GFR BUN/Creatinine Ratio Glucose Calcium Phosphorus Magnesium Total Bilirubin AST ALT Alkaline Phosphatase Total Protein Albumin Albumin/Globulin Ratio Lipase 27 09/01/17 09/01/17 09/01/17 04:50 04:50 04:50 WBC 3.0 L RBC 3.38 L Hgb 11.2 L Hct 32.2 L MCV 95 H MCH 33 H MCHC 35 H RDW 13.6 Plt Count 80 L Lymph % (Auto) 12.0 L [place] % (Auto) 9.5 H Eos % (Auto) 1.6 Baso % (Auto) 1.0 Lymph # 0.4 L [place] # 0.3 Eos # 0.0 Baso # 0.0 Seg Neutrophils % 75.9 H Seg Neutrophils # 2.3 PT INR APTT Heparin Anti-Xa Level 0.20 L Sodium 137 Potassium 3.6 Chloride 101.8 Carbon Dioxide 20 L Anion Gap 19 BUN 16 Creatinine 1.6 H Estimated GFR 55 BUN/Creatinine Ratio 10 Glucose 79 Calcium 8.9 Phosphorus 2.60 Magnesium 1.30 L Total Bilirubin 2.40 H AST 86 H ALT 47 Alkaline Phosphatase 122 Total Protein 7.0 D Albumin 2.8 L Albumin/Globulin Ratio 0.7 Lipase 09/01/17 11:31 WBC RBC Hgb Hct MCV MCH MCHC RDW Plt Count Lymph % (Auto) [place] % (Auto) Eos % (Auto) Baso % (Auto) Lymph # [place] # Eos # Baso # Seg Neutrophils % Seg Neutrophils # PT INR APTT Heparin Anti-Xa Level 0.12 L Sodium Potassium Chloride Carbon Dioxide Anion Gap BUN Creatinine Estimated GFR BUN/Creatinine Ratio Glucose Calcium Phosphorus Magnesium Total Bilirubin AST ALT Alkaline Phosphatase Total Protein Albumin Albumin/Globulin Ratio Lipase Assessment and Plan The patient was seen and examined. Elevated LFTs may be from the combination of alcohol and hepatitis B. Hepatitis B may be active or dormant. Will send HBV DNA study to assess the need for therapy. It will probably need therapy because of his immunosuppressed status with HIV disease and would need therapy if he were on any immunosuppressing drugs such as steroids or chemotherapy. Thank you for asking us to see him in consultation. Natasha Gomez MD
[2017-09-01] MEDS: KEPPRA PO SCH ×2 (10:35→21:45)
[2017-09-01] MEDS: NORVASC PO SCH (10:35)
[2017-09-01] MEDS: ZESTRIL PO SCH (10:35)
[2017-09-01] MEDS: COREG PO SCH (10:35)
[2017-09-01] MEDS: FEOSOL PO SCH ×2 (10:35→21:44)
--- NOTE | 2017-09-01 10:44 | Progress Note ---
Assessment and Plan Assessment and plan: Patient is a 57 y/o male with PMH of seizures, HTN, HIV and alcohol abuse, admitted with seizure disorder due to non compliance with medications, and alcohol abuse and noed to have sepsis secondary to UTI, and Bilateral DVT. He was also noted to have alcoholic hepatitis. Patient reports no hx of IV drug use. Admits to drinking 1/2 a pint and a couple of beers daily. Acute on chronic systolic heart failure * I/O, Daily weight, Echo. will monitor closely. Lasix held by cardiology Seizure * Continue Keppra as restarted Paroxysmal atrial flutter with RVR * Loperssor started for rate control. Pt with current CHADS score of 1 and thus systemic anticoagulation in regards to paroxysmal atrial flutter is not indicated. Thrombocytopenia * Possible HIT. Stop heparin, start Fondaparinux, Hematology consult Elevated LFTs * GI evaluated. No evidence of viral hepatitis. possible alcoholic hepatitis, but no indication for steroids at this time Bilateral LE DVT * Fondaparinux. Hematology eval Sepsis / UTI * Cultures with no growth, levaquin EVELYN * gentle hydration. ETOH abuse / tobacco use - cessation encouraged 15 mins spent. resources provided DVT/GI prophy History Interval history: Patient seen and examined in no acute distress, sitting up at the bedside. Hospitalist Physical - Physical exam Narrative exam: General appearance: Present: no acute distress, well-nourished - EENT Eyes: PERRL, EOM intact - Neck Neck: supple, normal ROM - Respiratory Respiratory effort: normal Respiratory: bilateral: CTA - Cardiovascular Rhythm: regular Heart Sounds: Present: S1 & S2.irregular Absent: gallop, rub Extremities: pulses intact, No edema, normal color, Full ROM - Gastrointestinal General gastrointestinal: Present: soft, non-tender, non-distended, normal bowel sounds - Integumentary Integumentary: clear, warm, dry - Musculoskeletal Musculoskeletal: 1, strength equal bilaterally - Neurologic Neurologic: moves all extremities - Psychiatric Psychiatric: memory intact, appropriate mood/affect, intact judgment & insight - Constitutional Vitals: Temp Pulse Resp BP Pulse Ox 98.6 F 78 18 156/92 99 09/01/17 09:13 09/01/17 09:13 09/01/17 09:13 09/01/17 09:13 09/01/17 09:13 General appearance: Present: no acute distress, well-nourished Results - Labs CBC & Chem 7: 09/01/17 04:50 09/01/17 04:50 Labs: Laboratory Last Values WBC 3.0 K/mm3 (4.5-11.0) L 09/01/17 04:50 RBC 3.38 M/mm3 (3.65-5.03) L 09/01/17 04:50 Hgb 11.2 gm/dl (11.8-15.2) L 09/01/17 04:50 Hct 32.2 % (35.5-45.6) L 09/01/17 04:50 MCV 95 fl (84-94) H 09/01/17 04:50 MCH 33 pg (28-32) H 09/01/17 04:50 MCHC 35 % (32-34) H 09/01/17 04:50 RDW 13.6 % (13.2-15.2) 09/01/17 04:50 Plt Count 80 K/mm3 (140-440) L 09/01/17 04:50 Lymph % (Auto) 12.0 % (13.4-35.0) L 09/01/17 04:50 [place] % (Auto) 9.5 % (0.0-7.3) H 09/01/17 04:50 Eos % (Auto) 1.6 % (0.0-4.3) 09/01/17 04:50 Baso % (Auto) 1.0 % (0.0-1.8) 09/01/17 04:50 Lymph # 0.4 K/mm3 (1.2-5.4) L 09/01/17 04:50 [place] # 0.3 K/mm3 (0.0-0.8) 09/01/17 04:50 Eos # 0.0 K/mm3 (0.0-0.4) 09/01/17 04:50 Baso # 0.0 K/mm3 (0.0-0.1) 09/01/17 04:50 Seg Neutrophils % 75.9 % (40.0-70.0) H 09/01/17 04:50 Seg Neutrophils # 2.3 K/mm3 (1.8-7.7) 09/01/17 04:50 PT 15.1 Sec. (12.2-14.9) H 08/31/17 21:07 INR 1.13 (0.87-1.13) 08/31/17 21:07 APTT 34.2 Sec. (24.2-36.6) 08/31/17 21:07 D-Dimer 1484.20 ng/mlDDU (0-234) H 08/30/17 21:20 Heparin Anti-Xa Level 0.20 U.I./ml (0.3-0.7) L 09/01/17 04:50 Sodium 137 mmol/L (137-145) 09/01/17 04:50 Potassium 3.6 mmol/L (3.6-5.0) 09/01/17 04:50 Chloride 101.8 mmol/L (98-107) 09/01/17 04:50 Carbon Dioxide 20 mmol/L (22-30) L 09/01/17 04:50 Anion Gap 19 mmol/L 09/01/17 04:50 BUN 16 mg/dL (9-20) 09/01/17 04:50 Creatinine 1.6 mg/dL (0.8-1.5) H 09/01/17 04:50 Estimated GFR 55 ml/min 09/01/17 04:50 BUN/Creatinine Ratio 10 % 09/01/17 04:50 Glucose 79 mg/dL (75-100) 09/01/17 04:50 Lactic Acid 2.00 mmol/L (0.7-2.0) 08/30/17 20:20 Calcium 8.9 mg/dL (8.4-10.2) 09/01/17 04:50 Phosphorus 2.60 mg/dL (2.5-4.5) 09/01/17 04:50 Magnesium 1.30 mg/dL (1.7-2.3) L 09/01/17 04:50 Total Bilirubin 2.40 mg/dL (0.1-1.2) H 09/01/17 04:50 Direct Bilirubin 0.8 mg/dL (0-0.2) H 08/30/17 17:52 Indirect Bilirubin 1.5 mg/dL 08/30/17 17:52 AST 86 units/L (5-40) H 09/01/17 04:50 ALT 47 units/L (7-56) 09/01/17 04:50 Alkaline Phosphatase 122 units/L (35-129) 09/01/17 04:50 Total Creatine Kinase 92 units/L (55-170) 08/30/17 21:20 CK-MB (CK-2) 2.6 ng/mL (0.0-4.0) 08/30/17 21:20 CK-MB (CK-2) Rel Index 2.8 (0-4) 08/30/17 21:20 Troponin T < 0.010 ng/mL (0.00-0.029) 08/30/17 21:20 NT-Pro-B Natriuret Pep 1858 pg/mL (0-900) H 08/30/17 21:20 Total Protein 7.0 g/dL (6.3-8.2) D 09/01/17 04:50 Albumin 2.8 g/dL (3.9-5) L 09/01/17 04:50 Albumin/Globulin Ratio 0.7 % 09/01/17 04:50 Lipase 27 units/L (13-60) 08/31/17 20:38 TSH 0.531 mlU/mL (0.270-4.200) 08/30/17 21:20 Free T4 0.76 ng/dL (0.76-1.46) 08/30/17 17:52 Urine Color [place] (Yellow) 08/30/17 21:07 Urine Turbidity Clear (Clear) 08/30/17 21:07 Urine pH 5.0 (5.0-7.0) 08/30/17 21:07 Ur Specific [place] 1.013 (1.003-1.030) 08/30/17 21:07 Urine Protein 100 mg/dl mg/dL (Negative) 08/30/17 21:07 Urine Glucose (UA) Neg mg/dL (Negative) 08/30/17 21:07 Urine Ketones Neg mg/dL (Negative) 08/30/17 21:07 Urine Blood Lg (Negative) 08/30/17 21:07 Urine Nitrite Neg (Negative) 08/30/17 21:07 Urine Bilirubin Neg (Negative) 08/30/17 21:07 Urine Urobilinogen 2.0 mg/dL (<2.0) 08/30/17 21:07 Ur Leukocyte Esterase Lg (Negative) 08/30/17 21:07 Urine WBC (Auto) > 182.0 /HPF (0.0-6.0) H 08/30/17 21:07 Urine RBC (Auto) 18.0 /HPF (0.0-6.0) 08/30/17 21:07 U Epithel Cells (Auto) 5.0 /HPF (0-13.0) 08/30/17 21:07 Urine Bacteria (Auto) 2+ /HPF (Negative) 08/30/17 21:07 Urine Opiates Screen Presumptive negative 08/30/17 21:07 Urine Methadone Screen Presumptive negative 08/30/17 21:07 Ur Barbiturates Screen Presumptive negative 08/30/17 21:07 Ur Phencyclidine Scrn Presumptive negative 08/30/17 21:07 Ur Amphetamines Screen Presumptive negative 08/30/17 21:07 U Benzodiazepines Scrn Presumptive negative 08/30/17 21:07 Urine Cocaine Screen Presumptive negative 08/30/17 21:07 U Marijuana (THC) Screen Presumptive negative 08/30/17 21:07 Drugs of Abuse Note Disclamer 08/30/17 21:07 Plasma/Serum Alcohol < 0.01 gm% (0-0.07) 08/30/17 21:22 Hepatitis A IgM Ab Non-reactive (NonReactive) 08/31/17 03:42 Hep Bs Antigen Reactive (Negative) 08/31/17 03:42 Hep B Core IgM Ab Non-reactive (NonReactive) 08/31/17 03:42 Hepatitis C Antibody Non-reactive (NonReactive) 08/31/17 03:42
--- NOTE | 2017-09-01 11:23 | Consultation ---
History of Present Illness Consult date: 09/01/17 Requesting physician: ADE ANDERSON Consult reason: congestive heart failure History of present illness: The pt is a 57 YO male with a past medical history significant for HTN, chronic ETOH abuse, seizures, tobacco use, "irregular heart rhythm". He is previously unknown to our practice. He presented with c/o seizures. He reports that he stopped taking his Keppra so that he could drink alcohol. He denies any cardiac complaints, including chest pain, palpitations, n/v, diaphoresis, dizziness or syncope. He does not see a political science research assistant regularly. He is a rather poor historian and provides no additional details. Following arrival, pt wasfound to have a fever, tachycardia, and elevated LFTs on admission. Head CT was negative. He is currently being treated for seizure disorder, alcohol withdrawal , UTI, SIRS, and matthew LE DVT, chest CTA negative for PE. Pt also found to have pulmonary nodules on chest CTA. Review of telemetry shows that pt has also been experiencing paroxysmal atrial flutter with RVR. Pt is on heparin gtt for treatment of DVT. Past History Past Medical History: hypertension, seizures, other (AIDS, right AC joint seperation) Past Surgical History: bowel surgery ("ulcer removal") Social history: lives with family, smoking, alcohol abuse Family history: hypertension Medications and Allergies Allergies Allergy/AdvReac Type Severity Reaction Status Date / Time No Known Allergies Allergy Unverified 08/09/16 15:58 Home Medications Medication Instructions Recorded Confirmed Last Taken Type Azithromycin 1,200 mg PO QWEEK 08/30/17 08/30/17 Unknown History Carvedilol [Coreg] 6.25 mg PO BID 08/30/17 08/30/17 Unknown History Elviteg/Cob/Emtri/Tenof Alafen 1 each PO QDAY 08/30/17 08/30/17 Unknown History [Genvoya Tablet] Ferrous Sulfate [Feosol] 325 mg PO BID 08/30/17 08/30/17 Unknown History levETIRAcetam [Keppra TAB] 750 mg PO BID 08/30/17 08/30/17 Unknown History Active Meds: Active Medications Acetaminophen (Tylenol) 650 mg PO Q4H PRN PRN Reason: For Pain/Fever/Headache Amlodipine Besylate (Norvasc) 10 mg PO QDAY [facility] Last Admin: 08/31/17 10:51 Dose: 10 mg Carvedilol (Coreg) 6.25 mg PO BID [facility] Last Admin: 08/31/17 21:58 Dose: 6.25 mg Ferrous Sulfate (Feosol) 325 mg PO BID [facility] Last Admin: 08/31/17 21:58 Dose: 325 mg Furosemide (Lasix) 20 mg IV Q24H [facility] Last Admin: 08/31/17 21:57 Dose: 20 mg Levofloxacin/Dextrose (Levaquin 750mg/150ml) 750 mg in 150 mls @ 100 mls/hr IV DAILY@2200 [facility] Last Admin: 08/31/17 22:06 Dose: 100 mls/hr Sodium Chloride (Nacl 0.9% 1000 Ml) 1,000 mls @ 150 mls/hr IV DIRECT [facility] Last Admin: 09/01/17 02:22 Dose: 150 mls/hr Folic Acid 1 mg/ Sodium (Chloride) 50.2 mls @ 200.8 mls/hr IV Q24H [facility] Last Admin: 08/31/17 22:16 Dose: 200.8 mls/hr Thiamine HCl 100 mg/ Sodium (Chloride) 51 mls @ 100 mls/hr IV Q24H [facility] Last Admin: 08/31/17 22:16 Dose: 100 mls/hr Heparin Sodium/Sodium Chloride (Heparin/ 0.45% Nacl-25,000 Unit/500 Ml) 25,000 unit in 500 mls @ 15 mls/hr IV TITR [facility]MA; 750 UNITS/HR PRN Reason: Protocol Last Titration: 09/01/17 05:22 Dose: 800 units/hr, 16 mls/hr Levetiracetam (Keppra) 750 mg PO BID [facility] Last Admin: 08/31/17 21:59 Dose: 750 mg Lisinopril (Zestril) 40 mg PO QDAY [facility] Last Admin: 08/31/17 10:51 Dose: 40 mg Lorazepam (Ativan) 1 mg IV Q2H PRN PRN Reason: Seizures Last Admin: 08/31/17 05:28 Dose: 1 mg Metoclopramide HCl (Reglan) 10 mg IV Q6H PRN PRN Reason: Nausea And Vomiting Miscellaneous Medication (Elviteg/Cob/Emtri/Tenof Alafen [Genvoya Tablet]) 1 each PO QDAY [facility] Last Admin: 08/31/17 10:50 Dose: Not Given Morphine Sulfate (Morphine) 2 mg IV Q4H PRN PRN Reason: Pain, Moderate (4-6) Ondansetron HCl (Zofran) 4 mg IV Q8H PRN PRN Reason: Nausea And Vomiting Review of Systems All systems: negative Neurological: seizures Physical Examination Vital Signs Resp 16 08/30/17 17:24 General appearance: no acute distress HEENT: Positive: PERRL, Normocephaly, Mucus Membranes Moist Neck: Positive: neck supple, trachea midline Cardiac: Positive: irregularly irregular, S1/S2, Tachycardia Lungs: Positive: Rhonchi Neuro: Positive: Grossly Intact Abdomen: Positive: Soft. Negative: Tender Skin: Positive: Clear. Negative: Rash, Wound Musculoskeletal: No Fluid Collection, No Pain, Normal Range of Motion Extremities: Absent: edema Results 09/01/17 04:50 09/01/17 04:50 Cardiac Enzymes 09/01/17 Range/Units 04:50 AST 86 H (5-40) units/L Coagulation 08/31/17 Range/Units 21:07 PT 15.1 H (12.2-14.9) Sec. INR 1.13 (0.87-1.13) APTT 34.2 (24.2-36.6) Sec. CBC 08/31/17 09/01/17 Range/Units 20:38 04:50 WBC 3.0 L (4.5-11.0) K/mm3 RBC 3.38 L (3.65-5.03) M/mm3 Hgb 12.5 11.2 L (11.8-15.2) gm/dl Hct 37.0 32.2 L (35.5-45.6) % Plt Count 93 L 80 L (140-440) K/mm3 Lymph # 0.4 L (1.2-5.4) K/mm3 [place] # 0.3 (0.0-0.8) K/mm3 Eos # 0.0 (0.0-0.4) K/mm3 Baso # 0.0 (0.0-0.1) K/mm3 Comprehensive Metabolic Panel 09/01/17 Range/Units 04:50 Sodium 137 (137-145) mmol/L Potassium 3.6 (3.6-5.0) mmol/L Chloride 101.8 (98-107) mmol/L Carbon Dioxide 20 L (22-30) mmol/L BUN 16 (9-20) mg/dL Creatinine 1.6 H (0.8-1.5) mg/dL Glucose 79 (75-100) mg/dL Calcium 8.9 (8.4-10.2) mg/dL AST 86 H (5-40) units/L ALT 47 (7-56) units/L Alkaline Phosphatase 122 (35-129) units/L Total Protein 7.0 D (6.3-8.2) g/dL Albumin 2.8 L (3.9-5) g/dL - Imaging and Cardiology Echo: pending EKG: report reviewed, image reviewed EKG interpretations - Telemetry EKG Rhythm: Atrial Flutter - EKG Sinus rhythms and dysrhythmias: sinus rhythm Repolarization changes or abnormalities: nonspecific abnormality, ST segment, and/or T wave Assessment and Plan Assessment: Paroxysmal atrial flutter with RVR Seizure d/o Elevated LFTs Bilateral LE DVT Sepsis / UTI EVELYN Thrombocytopenia - plt count trending downwards since admission and since initiation of heparin gtt ETOH abuse / tobacco use - cessation encouraged Plan: Obtain echo. Convert coreg to lopressor for more adequate HR control. Pt with current CHADS score of 1 and thus systemic anticoagulation in regards to paroxysmal atrial flutter is not indicated. No current clinical evidence of acutely decompensated HF. D/c lasix. Repeat BMP in AM. Pt on heparin gtt for treatment of BLE DVT. However, pt noted to have thrombocytopenia with downwards trend in platelet count. Consider hematology consultation. D/w Dr. Montague. Assessment and plan reviewed with pt at bedside. The patient has been seen in conjunction with Dr. Delgado who agrees with the assessment and plan of care.
[2017-09-01] MEDS ORDERED: MAGNESIUM SULFATE IV ONE (13:08)
[2017-09-01] MEDS ORDERED: MAGNESIUM SULFATE 1 GM in NACL 0.9% 50 ML IV ONE ×2 (14:00→17:00)
[2017-09-01] MEDS: LOPRESSOR PO SCH ×3 (14:41→21:30)
[2017-09-01] MEDS: NON-FORMULARY (Elviteg/Cob/Emtri/Tenof Alafen [Genvoya Tablet] 1 EACH) PO SCH (17:14)
[2017-09-01] MEDS: VITAMIN B-1 100 MG in NACL 0.9% 50 ML IV SCH (21:54)
[2017-09-01] MEDS: FOLVITE 1 MG in NACL 0.9% 50 ML IV SCH (21:54)
[2017-09-01] MEDS: LEVAQUIN 750MG/150ML 750 MG/150 ML BAG IV SCH (22:22)
[2017-09-02] MEDS: NACL 0.9% 1000 ML 1,000 ML IV SCH (02:13)
[2017-09-02 06:17] LABS: Hematocrit 32.5 % (35.5-45.6); Hemoglobin 11.1 gm/dl (11.8-15.2); Mean Corpuscular HGB Conc 34 % (32-34); Mean Corpuscular Hemoglobin 33 pg (28-32); Mean Corpuscular Volume 96 fl (84-94); Red Blood Count 3.39 M/mm3 (3.65-5.03); Red Cell Distribution Width 13.4 % (13.2-15.2)
[2017-09-02 06:18] LABS: Platelet Count 91 K/mm3 (140-440)
[2017-09-02 06:19] LABS: White Blood Count 1.8 K/mm3 (4.5-11.0)
[2017-09-02 06:46] LABS: Alanine Aminotransferase 47 units/L (7-56); Albumin/Globulin Ratio 0.7 %; Alkaline Phosphatase 105 units/L (35-129); Anion Gap 16 mmol/L; BUN/Creatinine Ratio 11; Blood Urea Nitrogen 14 mg/dL (9-20); Carbon Dioxide 22 mmol/L (22-30); Chloride 106.3 mmol/L (98-107); Glucose 84 mg/dL (75-100); Potassium 3.3 mmol/L (3.6-5.0); Sodium 141 mmol/L (137-145); Total Protein 7.3 g/dL (6.3-8.2)
[2017-09-02 07:23] LABS: Basophils % (Manual) 0 % (0.0-1.8); Blastocytes % (Manual) 0 %
[2017-09-02 07:24] LABS: Anisocytosis 1+; Diff Status Complete; Elliptocytes Rare; Helmet Cells Rare; Ovalocytes Few
--- NOTE | 2017-09-02 09:12 | Hem/Onc Consultation ---
History of Present Illness - Reason for Consult Consult date: 09/02/17 - History of Present Illness note dictated Agree with reading heparin and starting Arixtra. Pancytopenia could be related to alcohol use along with HIV and hepatitis. Will follow closely. If progresses, may need to do a bone marrow biopsy. Follow-up on CT chest in about 3 months for pulmonary nodules Past History Past Medical History: hypertension, seizures, other (AIDS, right AC joint seperation) Past Surgical History: bowel surgery ("ulcer removal") Social history: lives with family, smoking, alcohol abuse Family history: hypertension Medications and Allergies Allergies Allergy/AdvReac Type Severity Reaction Status Date / Time No Known Allergies Allergy Unverified 08/09/16 15:58 Home Medications Medication Instructions Recorded Confirmed Last Taken Type Azithromycin 1,200 mg PO QWEEK 08/30/17 08/30/17 Unknown History Carvedilol [Coreg] 6.25 mg PO BID 08/30/17 08/30/17 Unknown History Elviteg/Cob/Emtri/Tenof Alafen 1 each PO QDAY 08/30/17 08/30/17 Unknown History [Genvoya Tablet] Ferrous Sulfate [Feosol] 325 mg PO BID 08/30/17 08/30/17 Unknown History levETIRAcetam [Keppra TAB] 750 mg PO BID 08/30/17 08/30/17 Unknown History Active Meds: Active Medications Acetaminophen (Tylenol) 650 mg PO Q4H PRN PRN Reason: For Pain/Fever/Headache Ferrous Sulfate (Feosol) 325 mg PO BID [facility] Last Admin: 09/01/17 21:44 Dose: 325 mg Fondaparinux (Arixtra) 7.5 mg SUB-Q QDAY [facility] Levofloxacin/Dextrose (Levaquin 750mg/150ml) 750 mg in 150 mls @ 100 mls/hr IV DAILY@2200 [facility] Last Admin: 09/01/17 22:22 Dose: 100 mls/hr Sodium Chloride (Nacl 0.9% 1000 Ml) 1,000 mls @ 150 mls/hr IV DIRECT [facility] Last Admin: 09/02/17 02:13 Dose: 150 mls/hr Folic Acid 1 mg/ Sodium (Chloride) 50.2 mls @ 200.8 mls/hr IV Q24H [facility] Last Admin: 09/01/17 21:54 Dose: 200.8 mls/hr Thiamine HCl 100 mg/ Sodium (Chloride) 51 mls @ 100 mls/hr IV Q24H [facility] Last Admin: 09/01/17 21:54 Dose: 100 mls/hr Levetiracetam (Keppra) 750 mg PO BID [facility] Last Admin: 09/01/17 21:45 Dose: 750 mg Lisinopril (Zestril) 40 mg PO QDAY [facility] Last Admin: 09/01/17 10:35 Dose: 40 mg Lorazepam (Ativan) 1 mg IV Q2H PRN PRN Reason: Seizures Last Admin: 08/31/17 05:28 Dose: 1 mg Metoclopramide HCl (Reglan) 10 mg IV Q6H PRN PRN Reason: Nausea And Vomiting Metoprolol Tartrate (Lopressor) 25 mg PO TID [facility] Last Admin: 09/01/17 21:30 Dose: 25 mg Miscellaneous Medication (Elviteg/Cob/Emtri/Tenof Alafen [Genvoya Tablet]) 1 each PO QDAY [facility] Last Admin: 09/01/17 17:14 Dose: 1 each Morphine Sulfate (Morphine) 2 mg IV Q4H PRN PRN Reason: Pain, Moderate (4-6) Ondansetron HCl (Zofran) 4 mg IV Q8H PRN PRN Reason: Nausea And Vomiting Exam - Constitutional Vitals: Last Vital Signs Temp 98.3 F 09/02/17 08:57 Pulse 69 09/02/17 08:57 Resp 18 09/02/17 08:57 BP 153/98 09/02/17 08:57 Pulse Ox 97 09/02/17 08:57 Results - Labs lab Results: Laboratory Results - last 24 hr 09/01/17 09/02/17 09/02/17 11:31 04:00 04:00 WBC 1.8 L* RBC 3.39 L Hgb 11.1 L Hct 32.5 L MCV 96 H MCH 33 H MCHC 34 RDW 13.4 Plt Count 91 L Add Manual Diff Complete Total Counted 100 Seg Neuts % (Manual) 64.0 Band Neutrophils % 0 Lymphocytes % (Manual) 21.0 Reactive Lymphs % (Man) 0 Monocytes % (Manual) 8.0 H Eosinophils % (Manual) 7.0 H Basophils % (Manual) 0 Metamyelocytes % 0 Myelocytes % 0 Promyelocytes % 0 Blast Cells % 0 Nucleated RBC % Not Reportable Seg Neutrophils # Man 1.2 L Band Neutrophils # 0.0 Lymphocytes # (Manual) 0.4 L Abs React Lymphs (Man) 0.0 Monocytes # (Manual) 0.1 Eosinophils # (Manual) 0.1 Basophils # (Manual) 0.0 Metamyelocytes # 0.0 Myelocytes # 0.0 Promyelocytes # 0.0 Blast Cells # 0.0 WBC Morphology Not Reportable Hypersegmented Neuts Not Reportable Hyposegmented Neuts Not Reportable Hypogranular Neuts Not Reportable Smudge Cells Not Reportable Toxic Granulation Not Reportable Toxic Vacuolation Not Reportable Dohle Bodies Not Reportable Pelger-Huet Anomaly Not Reportable Chase Rods Not Reportable Platelet Estimate Appears normal Clumped Platelets Not Reportable Plt Clumps, EDTA Not Reportable Large Platelets Not Reportable Giant Platelets Not Reportable Platelet Satelliting Not Reportable Plt Morphology Comment Not Reportable RBC Morphology Not Reportable Dimorphic RBCs Not Reportable Polychromasia Not Reportable Hypochromasia Not Reportable Poikilocytosis Not Reportable Anisocytosis 1+ Microcytosis Not Reportable Macrocytosis Not Reportable Spherocytes Not Reportable Pappenheimer Bodies Not Reportable Sickle Cells Not Reportable Target Cells Not Reportable Tear Drop Cells Not Reportable Ovalocytes Few Helmet Cells Rare [place] Bodies Not Reportable [place] Rings Not Reportable Matt Cells Not Reportable Bite Cells Not Reportable Crenated Cell Not Reportable Elliptocytes Rare Acanthocytes (Spur) Not Reportable Rouleaux Not Reportable Hemoglobin C Crystals Not Reportable Schistocytes Not Reportable Malaria parasites Not Reportable Facundo Bodies Not Reportable Hem Pathologist Commnt No Heparin Anti-Xa Level 0.12 L Sodium 141 Potassium 3.3 L Chloride 106.3 Carbon Dioxide 22 Anion Gap 16 BUN 14 Creatinine 1.3 Estimated GFR > 60 BUN/Creatinine Ratio 11 Glucose 84 Calcium 9.0 Magnesium 1.70 Total Bilirubin 1.40 H AST 86 H ALT 47 Alkaline Phosphatase 105 Total Protein 7.3 Albumin 3.0 L Albumin/Globulin Ratio 0.7
[2017-09-02] MEDS ORDERED: ARIXTRA SUB-Q SCH (10:00)
--- NOTE | 2017-09-02 10:33 | Gastroenterology Progress Note ---
<NICOLE,KATHYEWA Shi - Last Filed: 09/02/17 10:37> Assessment and Plan 1.elevated LFTs -LFTs stable -abd u/s negative -hepatitis panel showed Hep Bs Antigen reactive- infection status unknown at this time - will order HBV DNA-f/u results in the office -pt will need further evaluation and treatment as an outpatient -etiology unclear- most likely multifactorial with ETOH abuse and Hep B -pt is clinically asymptomatic w/o GI complaints -alcohol cessation -[facility] protocol -continue supportive care -no further GI recommendations at this time -pt is okay to be d/c from GI standpoint with f/u clinic appt in 3-4 weeks -will sign off Subjective Date of service: 09/02/17 Principal diagnosis: elevated LFTs Interval history: Patient sitting on the side of the bed this am. No distress or complaints voiced. Tolerating diet. Objective - Constitutional Vitals: Temp Pulse Resp BP Pulse Ox 98.3 F 69 18 153/98 97 09/02/17 08:57 09/02/17 08:57 09/02/17 08:57 09/02/17 08:57 09/02/17 08:57 General appearance: no acute distress - EENT Eyes: PERRL, EOM intact ENT: hearing intact - Respiratory Respiratory: bilateral: rhonchi - Cardiovascular Rhythm: irregularly irregular Heart Sounds: Present: S1 & S2 - Gastrointestinal General gastrointestinal: Present: soft, non-tender, non-distended, normal bowel sounds - Integumentary Integumentary: Present: warm, dry - Neurologic Neurological: alert and oriented x3 - Labs CBC & Chem 7: 09/02/17 04:00 09/02/17 04:00 Labs: Laboratory Results - last 24 hr 09/01/17 09/02/17 09/02/17 11:31 04:00 04:00 WBC 1.8 L* RBC 3.39 L Hgb 11.1 L Hct 32.5 L MCV 96 H MCH 33 H MCHC 34 RDW 13.4 Plt Count 91 L Add Manual Diff Complete Total Counted 100 Seg Neuts % (Manual) 64.0 Band Neutrophils % 0 Lymphocytes % (Manual) 21.0 Reactive Lymphs % (Man) 0 Monocytes % (Manual) 8.0 H Eosinophils % (Manual) 7.0 H Basophils % (Manual) 0 Metamyelocytes % 0 Myelocytes % 0 Promyelocytes % 0 Blast Cells % 0 Nucleated RBC % Not Reportable Seg Neutrophils # Man 1.2 L Band Neutrophils # 0.0 Lymphocytes # (Manual) 0.4 L Abs React Lymphs (Man) 0.0 Monocytes # (Manual) 0.1 Eosinophils # (Manual) 0.1 Basophils # (Manual) 0.0 Metamyelocytes # 0.0 Myelocytes # 0.0 Promyelocytes # 0.0 Blast Cells # 0.0 WBC Morphology Not Reportable Hypersegmented Neuts Not Reportable Hyposegmented Neuts Not Reportable Hypogranular Neuts Not Reportable Smudge Cells Not Reportable Toxic Granulation Not Reportable Toxic Vacuolation Not Reportable Dohle Bodies Not Reportable Pelger-Huet Anomaly Not Reportable Chase Rods Not Reportable Platelet Estimate Appears normal Clumped Platelets Not Reportable Plt Clumps, EDTA Not Reportable Large Platelets Not Reportable Giant Platelets Not Reportable Platelet Satelliting Not Reportable Plt Morphology Comment Not Reportable RBC Morphology Not Reportable Dimorphic RBCs Not Reportable Polychromasia Not Reportable Hypochromasia Not Reportable Poikilocytosis Not Reportable Anisocytosis 1+ Microcytosis Not Reportable Macrocytosis Not Reportable Spherocytes Not Reportable Pappenheimer Bodies Not Reportable Sickle Cells Not Reportable Target Cells Not Reportable Tear Drop Cells Not Reportable Ovalocytes Few Helmet Cells Rare [place] Bodies Not Reportable [place] Rings Not Reportable Matt Cells Not Reportable Bite Cells Not Reportable Crenated Cell Not Reportable Elliptocytes Rare Acanthocytes (Spur) Not Reportable Rouleaux Not Reportable Hemoglobin C Crystals Not Reportable Schistocytes Not Reportable Malaria parasites Not Reportable Facundo Bodies Not Reportable Hem Pathologist Commnt No Heparin Anti-Xa Level 0.12 L Sodium 141 Potassium 3.3 L Chloride 106.3 Carbon Dioxide 22 Anion Gap 16 BUN 14 Creatinine 1.3 Estimated GFR > 60 BUN/Creatinine Ratio 11 Glucose 84 Calcium 9.0 Magnesium 1.70 Total Bilirubin 1.40 H AST 86 H ALT 47 Alkaline Phosphatase 105 Total Protein 7.3 Albumin 3.0 L Albumin/Globulin Ratio 0.7 <NATASHA GOMEZ - Last Filed: 09/02/17 15:02> Assessment and Plan - Patient Problems (1) Abnormal LFTs Current Visit: Yes Status: Acute Plan to address problem: Doing well GI byrne. Needs outpatient f/u which I discussed with him. Objective - Constitutional Vitals: Temp Pulse Resp BP Pulse Ox 98.3 F 69 18 153/98 97 09/02/17 08:57 09/02/17 11:30 09/02/17 08:57 09/02/17 11:30 09/02/17 08:57 - Labs CBC & Chem 7: 09/02/17 04:00 09/02/17 04:00 Labs: Laboratory Results - last 24 hr 09/02/17 09/02/17 09/02/17 04:00 04:00 11:22 WBC 1.8 L* RBC 3.39 L Hgb 11.1 L Hct 32.5 L MCV 96 H MCH 33 H MCHC 34 RDW 13.4 Plt Count 91 L Add Manual Diff Complete Total Counted 100 Seg Neuts % (Manual) 64.0 Band Neutrophils % 0 Lymphocytes % (Manual) 21.0 Reactive Lymphs % (Man) 0 Monocytes % (Manual) 8.0 H Eosinophils % (Manual) 7.0 H Basophils % (Manual) 0 Metamyelocytes % 0 Myelocytes % 0 Promyelocytes % 0 Blast Cells % 0 Nucleated RBC % Not Reportable Seg Neutrophils # Man 1.2 L Band Neutrophils # 0.0 Lymphocytes # (Manual) 0.4 L Abs React Lymphs (Man) 0.0 Monocytes # (Manual) 0.1 Eosinophils # (Manual) 0.1 Basophils # (Manual) 0.0 Metamyelocytes # 0.0 Myelocytes # 0.0 Promyelocytes # 0.0 Blast Cells # 0.0 WBC Morphology Not Reportable Hypersegmented Neuts Not Reportable Hyposegmented Neuts Not Reportable Hypogranular Neuts Not Reportable Smudge Cells Not Reportable Toxic Granulation Not Reportable Toxic Vacuolation Not Reportable Dohle Bodies Not Reportable Pelger-Huet Anomaly Not Reportable Chase Rods Not Reportable Platelet Estimate Appears normal Clumped Platelets Not Reportable Plt Clumps, EDTA Not Reportable Large Platelets Not Reportable Giant Platelets Not Reportable Platelet Satelliting Not Reportable Plt Morphology Comment Not Reportable RBC Morphology Not Reportable Dimorphic RBCs Not Reportable Polychromasia Not Reportable Hypochromasia Not Reportable Poikilocytosis Not Reportable Anisocytosis 1+ Microcytosis Not Reportable Macrocytosis Not Reportable Spherocytes Not Reportable Pappenheimer Bodies Not Reportable Sickle Cells Not Reportable Target Cells Not Reportable Tear Drop Cells Not Reportable Ovalocytes Few Helmet Cells Rare [place] Bodies Not Reportable [place] Rings Not Reportable [place] Cells Not Reportable Bite Cells Not Reportable Crenated Cell Not Reportable Elliptocytes Rare Acanthocytes (Spur) Not Reportable Rouleaux Not Reportable Hemoglobin C Crystals Not Reportable Schistocytes Not Reportable Malaria parasites Not Reportable Percent Retic 1.50 Facundo Bodies Not Reportable Hem Pathologist Commnt No Sodium 141 Potassium 3.3 L Chloride 106.3 Carbon Dioxide 22 Anion Gap 16 BUN 14 Creatinine 1.3 Estimated GFR > 60 BUN/Creatinine Ratio 11 Glucose 84 Calcium 9.0 Magnesium 1.70 Iron TIBC % Saturation Transferrin Ferritin Total Bilirubin 1.40 H AST 86 H ALT 47 Alkaline Phosphatase 105 Total Protein 7.3 Albumin 3.0 L Albumin/Globulin Ratio 0.7 Vitamin B12 09/02/17 09/02/17 09/02/17 11:22 11:22 11:22 WBC RBC Hgb Hct MCV MCH MCHC RDW Plt Count Add Manual Diff Total Counted Seg Neuts % (Manual) Band Neutrophils % Lymphocytes % (Manual) Reactive Lymphs % (Man) Monocytes % (Manual) Eosinophils % (Manual) Basophils % (Manual) Metamyelocytes % Myelocytes % Promyelocytes % Blast Cells % Nucleated RBC % Seg Neutrophils # Man Band Neutrophils # Lymphocytes # (Manual) Abs React Lymphs (Man) Monocytes # (Manual) Eosinophils # (Manual) Basophils # (Manual) Metamyelocytes # Myelocytes # Promyelocytes # Blast Cells # WBC Morphology Hypersegmented Neuts Hyposegmented Neuts Hypogranular Neuts Smudge Cells Toxic Granulation Toxic Vacuolation Dohle Bodies Pelger-Huet Anomaly Chase Rods Platelet Estimate Clumped Platelets Plt Clumps, EDTA Large Platelets Giant Platelets Platelet Satelliting Plt Morphology Comment RBC Morphology Dimorphic RBCs Polychromasia Hypochromasia Poikilocytosis Anisocytosis Microcytosis Macrocytosis Spherocytes Pappenheimer Bodies Sickle Cells Target Cells Tear Drop Cells Ovalocytes Helmet Cells Eaton-Lafontaine Bodies [place] Rings Matt Cells Bite Cells Crenated Cell Elliptocytes Acanthocytes (Spur) Rouleaux Hemoglobin C Crystals Schistocytes Malaria parasites Percent Retic Facundo Bodies Hem Pathologist Commnt Sodium Potassium Chloride Carbon Dioxide Anion Gap BUN Creatinine Estimated GFR BUN/Creatinine Ratio Glucose Calcium Magnesium Iron 93 TIBC 179 L % Saturation 51.96 Transferrin 163 L Ferritin 931.9 H Total Bilirubin AST ALT Alkaline Phosphatase Total Protein Albumin Albumin/Globulin Ratio Vitamin B12 937.7 H
[2017-09-02] MEDS: ZESTRIL PO SCH (11:00)
[2017-09-02] MEDS: NON-FORMULARY (Elviteg/Cob/Emtri/Tenof Alafen [Genvoya Tablet] 1 EACH) PO SCH (11:00)
[2017-09-02] MEDS: KEPPRA PO SCH ×2 (11:00→22:41)
[2017-09-02] MEDS: FEOSOL PO SCH ×2 (11:00→22:41)
--- NOTE | 2017-09-02 11:11 | Progress Note ---
Assessment and Plan Assessment and plan: Patient is a 57 y/o male with PMH of seizures, HTN, HIV and alcohol abuse, admitted with seizure disorder due to non compliance with medications, and alcohol abuse and noed to have sepsis secondary to UTI, and Bilateral DVT. He was also noted to have alcoholic hepatitis. Patient reports no hx of IV drug use. Admits to drinking 1/2 a pint and a couple of beers daily. Acute on chronic systolic heart failure * I/O, Daily weight, Echo. will monitor closely. 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 Seizure * Continue Keppra as restarted Paroxysmal atrial flutter with RVR * Loperssor started for rate control. Pt with current CHADS score of 1 and thus systemic anticoagulation in regards to paroxysmal atrial flutter is not indicated. Thrombocytopenia * Possible HIT. Work up pending, Stopped heparin, Continue Fondaparinux, Hematology consult noted. will discuss with Case management about cost of fondaparinux pancytopenia with worsening leukocytopenia * Hemeonc input noted multilateral, likely secondary from HIV, Alcholoic hepatitis. Elevated LFTs/Hepatitis B-STABLE * GI evaluated. Hepatitis B. possible alcoholic hepatitis, but no indication for steroids at this time * Follow with GI in 3-4 weeks. * Diagnosis discussed with patient. Bilateral LE DVT * Fondaparinux. Hematology eval Sepsis / UTI * Cultures with no growth, levaquin HIV * Per hx, on antiretroviral, ?compliance Severe malnutrition with anorexia * Sales Office Administrator consulted EVELYN * gentle hydration. ETOH abuse / tobacco use - cessation encouraged 15 mins spent. resources provided DVT/GI prophy Compliance is a big concern, while patient may benefit from Eliquis, bleeding risk abound, will go with warfarin again ?complaince. This has all been discussed with the patient. Will obtain vascular eval for IVC filter. - History Interval history: Patient seen and examined in no acute distress, sitting up at the bedside. denies chest pain, nausea, vomiting, abdominal pain, leg pain. Hospitalist Physical - Physical exam Narrative exam: General appearance: Present: no acute distress, cachectic - EENT Eyes: PERRL, EOM intact - Neck Neck: supple, normal ROM - Respiratory Respiratory effort: normal Respiratory: bilateral: CTA - Cardiovascular Rhythm: regular Heart Sounds: Present: S1 & S2.irregular Absent: gallop, rub Extremities: pulses intact, No edema, normal color, Full ROM - Gastrointestinal General gastrointestinal: Present: soft, non-tender, non-distended, normal bowel sounds - Integumentary Integumentary: clear, warm, dry - Musculoskeletal Musculoskeletal: 1, strength equal bilaterally - Neurologic Neurologic: moves all extremities - Psychiatric Psychiatric: memory intact, appropriate mood/affect, - Constitutional Vitals: Temp Pulse Resp BP Pulse Ox 98.3 F 69 18 153/98 97 09/02/17 08:57 09/02/17 11:00 09/02/17 08:57 09/02/17 11:00 09/02/17 08:57 General appearance: Present: no acute distress, well-nourished Results - Labs CBC & Chem 7: 09/03/17 05:47 09/03/17 05:47 Labs: Laboratory Last Values WBC 1.8 K/mm3 (4.5-11.0) L* 09/02/17 04:00 RBC 3.39 M/mm3 (3.65-5.03) L 09/02/17 04:00 Hgb 11.1 gm/dl (11.8-15.2) L 09/02/17 04:00 Hct 32.5 % (35.5-45.6) L 09/02/17 04:00 MCV 96 fl (84-94) H 09/02/17 04:00 MCH 33 pg (28-32) H 09/02/17 04:00 MCHC 34 % (32-34) 09/02/17 04:00 RDW 13.4 % (13.2-15.2) 09/02/17 04:00 Plt Count 91 K/mm3 (140-440) L 09/02/17 04:00 Lymph % (Auto) 12.0 % (13.4-35.0) L 09/01/17 04:50 Rice % (Auto) 9.5 % (0.0-7.3) H 09/01/17 04:50 Eos % (Auto) 1.6 % (0.0-4.3) 09/01/17 04:50 Baso % (Auto) 1.0 % (0.0-1.8) 09/01/17 04:50 Lymph # 0.4 K/mm3 (1.2-5.4) L 09/01/17 04:50 Rice # 0.3 K/mm3 (0.0-0.8) 09/01/17 04:50 Eos # 0.0 K/mm3 (0.0-0.4) 09/01/17 04:50 Baso # 0.0 K/mm3 (0.0-0.1) 09/01/17 04:50 Add Manual Diff Complete 09/02/17 04:00 Total Counted 100 09/02/17 04:00 Seg Neutrophils % 75.9 % (40.0-70.0) H 09/01/17 04:50 Seg Neuts % (Manual) 64.0 % (40.0-70.0) 09/02/17 04:00 Band Neutrophils % 0 % 09/02/17 04:00 Lymphocytes % (Manual) 21.0 % (13.4-35.0) 09/02/17 04:00 Reactive Lymphs % (Man) 0 % 09/02/17 04:00 Monocytes % (Manual) 8.0 % (0.0-7.3) H 09/02/17 04:00 Eosinophils % (Manual) 7.0 % (0.0-4.3) H 09/02/17 04:00 Basophils % (Manual) 0 % (0.0-1.8) 09/02/17 04:00 Metamyelocytes % 0 % 09/02/17 04:00 Myelocytes % 0 % 09/02/17 04:00 Promyelocytes % 0 % 09/02/17 04:00 Blast Cells % 0 % 09/02/17 04:00 Nucleated RBC % Not Reportable 09/02/17 04:00 Seg Neutrophils # 2.3 K/mm3 (1.8-7.7) 09/01/17 04:50 Seg Neutrophils # Man 1.2 K/mm3 (1.8-7.7) L 09/02/17 04:00 Band Neutrophils # 0.0 K/mm3 09/02/17 04:00 Lymphocytes # (Manual) 0.4 K/mm3 (1.2-5.4) L 09/02/17 04:00 Abs React Lymphs (Man) 0.0 K/mm3 09/02/17 04:00 Monocytes # (Manual) 0.1 K/mm3 (0.0-0.8) 09/02/17 04:00 Eosinophils # (Manual) 0.1 K/mm3 (0.0-0.4) 09/02/17 04:00 Basophils # (Manual) 0.0 K/mm3 (0.0-0.1) 09/02/17 04:00 Metamyelocytes # 0.0 K/mm3 09/02/17 04:00 Myelocytes # 0.0 K/mm3 09/02/17 04:00 Promyelocytes # 0.0 K/mm3 09/02/17 04:00 Blast Cells # 0.0 K/mm3 09/02/17 04:00 WBC Morphology Not Reportable 09/02/17 04:00 Hypersegmented Neuts Not Reportable 09/02/17 04:00 Hyposegmented Neuts Not Reportable 09/02/17 04:00 Hypogranular Neuts Not Reportable 09/02/17 04:00 Smudge Cells Not Reportable 09/02/17 04:00 Toxic Granulation Not Reportable 09/02/17 04:00 Toxic Vacuolation Not Reportable 09/02/17 04:00 Dohle Bodies Not Reportable 09/02/17 04:00 Pelger-Huet Anomaly Not Reportable 09/02/17 04:00 Chase Rods Not Reportable 09/02/17 04:00 Platelet Estimate Appears normal 09/02/17 04:00 Clumped Platelets Not Reportable 09/02/17 04:00 Plt Clumps, EDTA Not Reportable 09/02/17 04:00 Large Platelets Not Reportable 09/02/17 04:00 Giant Platelets Not Reportable 09/02/17 04:00 Platelet Satelliting Not Reportable 09/02/17 04:00 Plt Morphology Comment Not Reportable 09/02/17 04:00 RBC Morphology Not Reportable 09/02/17 04:00 Dimorphic RBCs Not Reportable 09/02/17 04:00 Polychromasia Not Reportable 09/02/17 04:00 Hypochromasia Not Reportable 09/02/17 04:00 Poikilocytosis Not Reportable 09/02/17 04:00 Anisocytosis 1+ 09/02/17 04:00 Microcytosis Not Reportable 09/02/17 04:00 Macrocytosis Not Reportable 09/02/17 04:00 Spherocytes Not Reportable 09/02/17 04:00 Pappenheimer Bodies Not Reportable 09/02/17 04:00 Sickle Cells Not Reportable 09/02/17 04:00 Target Cells Not Reportable 09/02/17 04:00 Tear Drop Cells Not Reportable 09/02/17 04:00 Ovalocytes Few 09/02/17 04:00 Helmet Cells Rare 09/02/17 04:00 [place]aton-[place] Bodies Not Reportable 09/02/17 04:00 [place] Rings Not Reportable 09/02/17 04:00 [place] Cells Not Reportable 09/02/17 04:00 Bite Cells Not Reportable 09/02/17 04:00 Crenated Cell Not Reportable 09/02/17 04:00 Elliptocytes Rare 09/02/17 04:00 Acanthocytes (Spur) Not Reportable 09/02/17 04:00 Rouleaux Not Reportable 09/02/17 04:00 Hemoglobin C Crystals Not Reportable 09/02/17 04:00 Schistocytes Not Reportable 09/02/17 04:00 Malaria parasites Not Reportable 09/02/17 04:00 Facundo Bodies Not Reportable 09/02/17 04:00 Hem Pathologist Commnt No 09/02/17 04:00 PT 15.1 Sec. (12.2-14.9) H 08/31/17 21:07 INR 1.13 (0.87-1.13) 08/31/17 21:07 APTT 34.2 Sec. (24.2-36.6) 08/31/17 21:07 D-Dimer 1484.20 ng/mlDDU (0-234) H 08/30/17 21:20 Heparin Anti-Xa Level 0.12 U.I./ml (0.3-0.7) L 09/01/17 11:31 Sodium 141 mmol/L (137-145) 09/02/17 04:00 Potassium 3.3 mmol/L (3.6-5.0) L 09/02/17 04:00 Chloride 106.3 mmol/L (98-107) 09/02/17 04:00 Carbon Dioxide 22 mmol/L (22-30) 09/02/17 04:00 Anion Gap 16 mmol/L 09/02/17 04:00 BUN 14 mg/dL (9-20) 09/02/17 04:00 Creatinine 1.3 mg/dL (0.8-1.5) 09/02/17 04:00 Estimated GFR > 60 ml/min 09/02/17 04:00 BUN/Creatinine Ratio 11 % 09/02/17 04:00 Glucose 84 mg/dL (75-100) 09/02/17 04:00 Lactic Acid 2.00 mmol/L (0.7-2.0) 08/30/17 20:20 Calcium 9.0 mg/dL (8.4-10.2) 09/02/17 04:00 Phosphorus 2.60 mg/dL (2.5-4.5) 09/01/17 04:50 Magnesium 1.70 mg/dL (1.7-2.3) 09/02/17 04:00 Total Bilirubin 1.40 mg/dL (0.1-1.2) H 09/02/17 04:00 Direct Bilirubin 0.8 mg/dL (0-0.2) H 08/30/17 17:52 Indirect Bilirubin 1.5 mg/dL 08/30/17 17:52 AST 86 units/L (5-40) H 09/02/17 04:00 ALT 47 units/L (7-56) 09/02/17 04:00 Alkaline Phosphatase 105 units/L (35-129) 09/02/17 04:00 Total Creatine Kinase 92 units/L (55-170) 08/30/17 21:20 CK-MB (CK-2) 2.6 ng/mL (0.0-4.0) 08/30/17 21:20 CK-MB (CK-2) Rel Index 2.8 (0-4) 08/30/17 21:20 Troponin T < 0.010 ng/mL (0.00-0.029) 08/30/17 21:20 NT-Pro-B Natriuret Pep 1858 pg/mL (0-900) H 08/30/17 21:20 Total Protein 7.3 g/dL (6.3-8.2) 09/02/17 04:00 Albumin 3.0 g/dL (3.9-5) L 09/02/17 04:00 Albumin/Globulin Ratio 0.7 % 09/02/17 04:00 Lipase 27 units/L (13-60) 08/31/17 20:38 TSH 0.531 mlU/mL (0.270-4.200) 08/30/17 21:20 Free T4 0.76 ng/dL (0.76-1.46) 08/30/17 17:52 Urine Color Marixa (Yellow) 08/30/17 21:07 Urine Turbidity Clear (Clear) 08/30/17 21:07 Urine pH 5.0 (5.0-7.0) 08/30/17 21:07 Ur Specific [place] 1.013 (1.003-1.030) 08/30/17 21:07 Urine Protein 100 mg/dl mg/dL (Negative) 08/30/17 21:07 Urine Glucose (UA) Neg mg/dL (Negative) 08/30/17 21:07 Urine Ketones Neg mg/dL (Negative) 08/30/17 21:07 Urine Blood Lg (Negative) 08/30/17 21:07 Urine Nitrite Neg (Negative) 08/30/17 21:07 Urine Bilirubin Neg (Negative) 08/30/17 21:07 Urine Urobilinogen 2.0 mg/dL (<2.0) 08/30/17 21:07 Ur Leukocyte Esterase Lg (Negative) 08/30/17 21:07 Urine WBC (Auto) > 182.0 /HPF (0.0-6.0) H 08/30/17 21:07 Urine RBC (Auto) 18.0 /HPF (0.0-6.0) 08/30/17 21:07 U Epithel Cells (Auto) 5.0 /HPF (0-13.0) 08/30/17 21:07 Urine Bacteria (Auto) 2+ /HPF (Negative) 08/30/17 21:07 Urine Opiates Screen Presumptive negative 08/30/17 21:07 Urine Methadone Screen Presumptive negative 08/30/17 21:07 Ur Barbiturates Screen Presumptive negative 08/30/17 21:07 Ur Phencyclidine Scrn Presumptive negative 08/30/17 21:07 Ur Amphetamines Screen Presumptive negative 08/30/17 21:07 U Benzodiazepines Scrn Presumptive negative 08/30/17 21:07 Urine Cocaine Screen Presumptive negative 08/30/17 21:07 U Marijuana (THC) Screen Presumptive negative 08/30/17 21:07 Drugs of Abuse Note Disclamer 08/30/17 21:07 Plasma/Serum Alcohol < 0.01 gm% (0-0.07) 08/30/17 21:22 Hepatitis A IgM Ab Non-reactive (NonReactive) 08/31/17 03:42 Hep Bs Antigen Reactive (Negative) 08/31/17 03:42 Hep B Core IgM Ab Non-reactive (NonReactive) 08/31/17 03:42 Hepatitis C Antibody Non-reactive (NonReactive) 08/31/17 03:42
--- NOTE | 2017-09-02 11:28 | Progress Note ---
Assessment and Plan Assessment: Paroxysmal atrial flutter with RVR --> SR CMP Seizure d/o Elevated LFTs Bilateral LE DVT Sepsis / UTI EVELYN - renal indices improving Pancytopenia - hematology following ETOH abuse / tobacco use - cessation encouraged Hypokalemia / hypomag Plan: Echo reviewed - EF 35-40%, trace MR, trace TR. Convert lopressor to Toprol XL from tomorrow AM to encourage OP compliance. Cont lisinopril. Hematology recs noted and appreciated. Replete electrolytes. Repeat BMP and Mg in AM. 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 NPO after MN. Assessment and plan reviewed with pt at bedside. The patient has been seen in conjunction with Dr. Delgado who agrees with the assessment and plan of care. Subjective Date of service: 09/02/17 Principal diagnosis: elevated LFTs Interval history: Pt ambulating around room without difficulty. no current cardiac complaints. in SR on tele with brief bouts of paroxysmal AFlutter overnight on tele. Objective Last Vital Signs Temp 98.3 F 09/02/17 08:57 Pulse 69 09/02/17 11:00 Resp 18 09/02/17 08:57 BP 153/98 09/02/17 11:00 Pulse Ox 97 09/02/17 08:57 - Physical Examination HEENT: Positive: PERRL, Normocephaly, Mucus Membranes Moist Neck: Positive: neck supple, trachea midline Cardiac: Positive: Reg Rate and Rhythm, S1/S2 Lungs: Positive: clear to auscultation Neuro: Positive: Grossly Intact Abdomen: Positive: Soft. Negative: Tender Skin: Positive: Clear. Negative: Rash, Wound Musculoskeletal: No Fluid Collection, No Pain, Normal Range of Motion Extremities: Absent: edema - Labs and Meds Cardiac Enzymes 09/02/17 Range/Units 04:00 AST 86 H (5-40) units/L CBC 09/02/17 Range/Units 04:00 WBC 1.8 L* (4.5-11.0) K/mm3 RBC 3.39 L (3.65-5.03) M/mm3 Hgb 11.1 L (11.8-15.2) gm/dl Hct 32.5 L (35.5-45.6) % Plt Count 91 L (140-440) K/mm3 Comprehensive Metabolic Panel 09/02/17 Range/Units 04:00 Sodium 141 (137-145) mmol/L Potassium 3.3 L (3.6-5.0) mmol/L Chloride 106.3 (98-107) mmol/L Carbon Dioxide 22 (22-30) mmol/L BUN 14 (9-20) mg/dL Creatinine 1.3 (0.8-1.5) mg/dL Glucose 84 (75-100) mg/dL Calcium 9.0 (8.4-10.2) mg/dL AST 86 H (5-40) units/L ALT 47 (7-56) units/L Alkaline Phosphatase 105 (35-129) units/L Total Protein 7.3 (6.3-8.2) g/dL Albumin 3.0 L (3.9-5) g/dL - Imaging and Cardiology EKG: report reviewed, image reviewed Echo: pending - EKG Sinus rhythms and dysrhythmias: sinus rhythm Repolarization changes or abnormalities: nonspecific abnormality, ST segment, and/or T wave
[2017-09-02] MEDS: LOPRESSOR PO SCH ×3 (11:30→22:41)
[2017-09-02] MEDS ORDERED: K-DUR PO ONE ×2 (11:38→12:07)
[2017-09-02] MEDS ORDERED: MAGNESIUM SULFATE 1 GM in NACL 0.9% 50 ML IV ONE (12:38)
[2017-09-02] MEDS: FOLVITE 1 MG in NACL 0.9% 50 ML IV SCH (22:40)
[2017-09-02] MEDS: VITAMIN B-1 100 MG in NACL 0.9% 50 ML IV SCH (22:42)
[2017-09-02] MEDS: LEVAQUIN 750MG/150ML 750 MG/150 ML BAG IV SCH (22:43)
--- NOTE | 2017-09-02 23:11 | Consultation ---
REFERRING PHYSICIAN: Matheus Montague MD REASON FOR CONSULTATION: Thrombocytopenia, leukopenia. HISTORY OF PRESENT ILLNESS: The patient is a 57-year-old male with multiple medical problems including HIV, hepatitis B, hypertension, chronic alcohol use, seizure disorder, tobacco abuse, irregular heart rate, who presented to the hospital with seizures. He had been taking Keppra, but stopped taking it so he could drink alcohol. He presented to the hospital with seizures. He is a very poor historian and most of the history is obtained from the chart. On arrival, he was found to have fever, tachycardia, and elevated liver enzymes. CT head was negative. His Keppra has been restarted. The patient did undergo lab work which included CBC and CMP ____. He also had CT of the chest to rule out pulmonary embolus. He was found on his lab work on admission to have platelet count of 136, white count 6.1, hemoglobin of 14.5. He was found to have elevated lactic acid. He was treated with antibiotics. His counts, however, have progressively gone down. His white count today is 1.8, hemoglobin 11.1, platelets 91,000. He also was started on heparin for evidence of bilateral lower extremity DVT. Heparin has been switched to fondaparinux and HIT panel has been sent. The patient also was found to have elevated liver enzymes, total bilirubin was 2.4, AST 86. He also was found to have hepatitis B surface antigen positive. Hepatitis C antibody was negative. Hematology consult was called for thrombocytopenia and leukopenia along with anemia. The patient denies any active bleeding. He feels better. His fevers have resolved. PAST MEDICAL HISTORY: As mentioned in history of present illness. MEDICATIONS: The patient is on multiple medications. He is also on antiretroviral, Genvoya. He was also on antibiotics, Levaquin. PHYSICAL EXAMINATION: GENERAL: The patient is slightly built male. HEENT: Unremarkable. CHEST: Clear. CARDIOVASCULAR: Regular rate and rhythm. ABDOMEN: Soft. EXTREMITIES: No clubbing, cyanosis, or edema. LABORATORY DATA: As mentioned in history of present illness. Today his white count is 1.8 differential shows 64% segs, 8% monos, 7% eos, and 21% lymphocytes. His MCV is 96. Liver function tests show bilirubin of 1.4, AST 86, ALT 47. His INR on 08/31/2017 was 1.1. ASSESSMENT: 1. Pancytopenia, could be related to alcohol abuse. This could also be related to his HIV and liver disease (hepatitis B). 2. The patient had been on heparin, which has been stopped to rule out heparin-induced thrombocytopenia. 3. Pulmonary nodules, nonspecific on CT chest. 4. Seizure disorder. RECOMMENDATION AND PLAN: At this time, I will closely follow counts. We will check B12, folate, retic count and anemia workup. Agree with stopping heparin and continuing Arixtra. We will need to follow with CT chest in about 3 months to rule out any progression of the pulmonary nodules. JOB# [id number] ELVIS/ASHISH
[2017-09-03 06:19] LABS: Hematocrit 30.8 % (35.5-45.6); Hemoglobin 10.5 gm/dl (11.8-15.2); Mean Corpuscular HGB Conc 34 % (32-34); Mean Corpuscular Hemoglobin 33 pg (28-32); Mean Corpuscular Volume 96 fl (84-94); Red Blood Count 3.21 M/mm3 (3.65-5.03); Red Cell Distribution Width 13.7 % (13.2-15.2)
[2017-09-03 06:29] LABS: Platelet Count 86 K/mm3 (140-440); White Blood Count 1.5 K/mm3 (4.5-11.0)
[2017-09-03 06:38] LABS: Alanine Aminotransferase 44 units/L (7-56); Albumin 2.7 g/dL (3.9-5); Albumin/Globulin Ratio 0.7 %; Alkaline Phosphatase 91 units/L (35-129); Anion Gap 15 mmol/L; BUN/Creatinine Ratio 8; Blood Urea Nitrogen 8 mg/dL (9-20); Calcium 8.8 mg/dL (8.4-10.2); Carbon Dioxide 21 mmol/L (22-30); Glucose 92 mg/dL (75-100); Potassium 3.3 mmol/L (3.6-5.0); Sodium 138 mmol/L (137-145); Total Protein 6.8 g/dL (6.3-8.2)
[2017-09-03 07:16] LABS: Anisocytosis 1+; Basophils % (Manual) 0 % (0.0-1.8); Blastocytes % (Manual) 0 %; Helmet Cells Rare
[2017-09-03 07:17] LABS: Diff Status Complete; Elliptocytes Few; Microcytosis Rare; Platelet Estimate Appears Decreased; Polychromasia Rare; Tear Drop Cells Rare
[2017-09-03] MEDS: ZESTRIL PO SCH (10:00)
[2017-09-03] MEDS ORDERED: LEXISCAN IV ONE ×2 (10:05→10:08)
[2017-09-03] MEDS: KEPPRA PO SCH ×2 (12:23→22:59)
[2017-09-03] MEDS: NON-FORMULARY (Elviteg/Cob/Emtri/Tenof Alafen [Genvoya Tablet] 1 EACH) PO SCH (12:23)
[2017-09-03] MEDS: FEOSOL PO SCH ×2 (12:24→22:59)
[2017-09-03] MEDS: TOPROL XL PO SCH (12:24)
--- NOTE | 2017-09-03 12:25 | Hem/Onc Progress Note ---
Assessment and Plan Platelets improved. He can be switched to Coumadin. Discussed with Dr. mancera. Patient has compliance issues. Would suggest IVC filter. White count is dropping. We will set up bone marrow biopsy. Patient in agreement. Subjective Date of service: 09/03/17 Interval history: Patient feels fair. Case discussed with Dr. mancera Objective - Constitutional Vitals: Last Vital Signs Temp 98.4 F 09/03/17 10:23 Pulse 73 09/03/17 10:23 Resp 18 09/03/17 10:23 BP 157/93 09/03/17 10:23 Pulse Ox 100 09/03/17 10:23 - Neck Neck: supple - Respiratory Respiratory effort: Positive: normal Respiratory: bilateral: CTA - Cardiovascular Rhythm: regular Extremities: No edema - Gastrointestinal General gastrointestinal: Present: soft - Labs Lab Results: Laboratory Results - last 24 hr 09/02/17 09/02/17 09/02/17 11:22 11:22 11:22 WBC RBC Hgb Hct MCV MCH MCHC RDW Plt Count [place] % (Auto) Add Manual Diff Total Counted Seg Neuts % (Manual) Band Neutrophils % Lymphocytes % (Manual) Reactive Lymphs % (Man) Monocytes % (Manual) Eosinophils % (Manual) Basophils % (Manual) Metamyelocytes % Myelocytes % Promyelocytes % Blast Cells % Nucleated RBC % Seg Neutrophils # Man Band Neutrophils # Lymphocytes # (Manual) Abs React Lymphs (Man) Monocytes # (Manual) Eosinophils # (Manual) Basophils # (Manual) Metamyelocytes # Myelocytes # Promyelocytes # Blast Cells # WBC Morphology Hypersegmented Neuts Hyposegmented Neuts Hypogranular Neuts Smudge Cells Toxic Granulation Toxic Vacuolation Dohle Bodies Pelger-Huet Anomaly Chase Rods Platelet Estimate Clumped Platelets Plt Clumps, EDTA Large Platelets Giant Platelets Platelet Satelliting Plt Morphology Comment RBC Morphology Dimorphic RBCs Polychromasia Hypochromasia Poikilocytosis Anisocytosis Microcytosis Macrocytosis Spherocytes Pappenheimer Bodies Sickle Cells Target Cells Tear Drop Cells Ovalocytes Helmet Cells [place] Bodies [place] Rings [place] Cells Bite Cells Crenated Cell Elliptocytes Acanthocytes (Spur) Rouleaux Hemoglobin C Crystals Schistocytes Malaria parasites Facundo Bodies Hem Pathologist Commnt Sodium Potassium Chloride Carbon Dioxide Anion Gap BUN Creatinine Estimated GFR BUN/Creatinine Ratio Glucose Calcium Magnesium Iron 93 TIBC 179 L % Saturation 51.96 Transferrin 163 L Ferritin Total Bilirubin AST ALT Alkaline Phosphatase Total Protein Albumin Albumin/Globulin Ratio Vitamin B12 937.7 H Folate 14.47 09/02/17 09/03/17 09/03/17 11:22 05:47 05:47 WBC 1.5 L* RBC 3.21 L Hgb 10.5 L Hct 30.8 L MCV 96 H MCH 33 H MCHC 34 RDW 13.7 Plt Count 86 L [place] % (Auto) Director Building Add Manual Diff Complete Total Counted 25 Seg Neuts % (Manual) 72.0 H Band Neutrophils % 0 Lymphocytes % (Manual) 12.0 L Reactive Lymphs % (Man) 0 Monocytes % (Manual) 0 Eosinophils % (Manual) 16.0 H Basophils % (Manual) 0 Metamyelocytes % 0 Myelocytes % 0 Promyelocytes % 0 Blast Cells % 0 Nucleated RBC % Not Reportable Seg Neutrophils # Man 1.1 L Band Neutrophils # 0.0 Lymphocytes # (Manual) 0.2 L Abs React Lymphs (Man) 0.0 Monocytes # (Manual) 0.0 Eosinophils # (Manual) 0.2 Basophils # (Manual) 0.0 Metamyelocytes # 0.0 Myelocytes # 0.0 Promyelocytes # 0.0 Blast Cells # 0.0 WBC Morphology Not Reportable Hypersegmented Neuts Not Reportable Hyposegmented Neuts Not Reportable Hypogranular Neuts Not Reportable Smudge Cells Not Reportable Toxic Granulation Not Reportable Toxic Vacuolation Not Reportable Dohle Bodies Not Reportable Pelger-Huet Anomaly Not Reportable Chase Rods Not Reportable Platelet Estimate Appears decreased Clumped Platelets Not Reportable Plt Clumps, EDTA Not Reportable Large Platelets Not Reportable Giant Platelets Not Reportable Platelet Satelliting Not Reportable Plt Morphology Comment Not Reportable RBC Morphology Not Reportable Dimorphic RBCs Not Reportable Polychromasia Rare Hypochromasia Not Reportable Poikilocytosis Not Reportable Anisocytosis 1+ Microcytosis Rare Macrocytosis Not Reportable Spherocytes Not Reportable Pappenheimer Bodies Not Reportable Sickle Cells Not Reportable Target Cells Not Reportable Tear Drop Cells Rare Ovalocytes Not Reportable Helmet Cells Rare [place] Bodies Not Reportable B[place] Rings Not Reportable Matt Cells Not Reportable Bite Cells Not Reportable Crenated Cell Not Reportable Elliptocytes Few Acanthocytes (Spur) Not Reportable Rouleaux Not Reportable Hemoglobin C Crystals Not Reportable Schistocytes Not Reportable Malaria parasites Not Reportable Facundo Bodies Not Reportable Hem Pathologist Commnt No Sodium 138 Potassium 3.3 L Chloride 105.0 Carbon Dioxide 21 L Anion Gap 15 BUN 8 L Creatinine 1.0 Estimated GFR > 60 BUN/Creatinine Ratio 8 Glucose 92 Calcium 8.8 Magnesium 1.50 L Iron TIBC % Saturation Transferrin Ferritin 931.9 H Total Bilirubin 1.20 AST 72 H ALT 44 Alkaline Phosphatase 91 Total Protein 6.8 Albumin 2.7 L Albumin/Globulin Ratio 0.7 Vitamin B12 Folate
--- NOTE | 2017-09-03 13:30 | Consultation ---
History of Present Illness - Reason for Consult Consult date: 09/03/17 DVT with noncompliance with medication - History of Present Illness 57 tear old male with a past medical history significant for HTN, chronic ETOH abuse, seizures, tobacco use, "irregular heart rhythm". He presented with c/o seizures due to discontinuation of Keppra so that he could drink alcohol. He is currently being treated for seizure disorder, alcohol withdrawal, UTI, SIRS, and matthew LE DVT, chest CTA negative for PE. Pt also found to have pulmonary nodules on chest CTA. Review of telemetry shows that pt has also been experiencing paroxysmal atrial flutter with RVR. Pt is on heparin gtt for treatment of DVT. Discussed the situation with Dr. Parekh, the patient's del[employer] programmer. Due to the patient's noncompliance with his current medication, she feels that he will likely be noncompliant with his anticoagulation. Given the bilateral lower extremity DVTs, she was interested in obtaining a filter for the patient. I discussed the patient's noncompliance with medical care with him, and he agrees that he will likely be noncompliant in the future. Discussed the risks, benefits, and alternatives of filter placement. Past History Past Medical History: hypertension, seizures, other (AIDS, right AC joint seperation) Past Surgical History: bowel surgery ("ulcer removal") Social history: lives with family, smoking, alcohol abuse Family history: hypertension Medications and Allergies Allergies Allergy/AdvReac Type Severity Reaction Status Date / Time No Known Allergies Allergy Unverified 08/09/16 15:58 Home Medications Medication Instructions Recorded Confirmed Last Taken Type Azithromycin 1,200 mg PO QWEEK 08/30/17 08/30/17 Unknown History Carvedilol [Coreg] 6.25 mg PO BID 08/30/17 08/30/17 Unknown History Elviteg/Cob/Emtri/Tenof Alafen 1 each PO QDAY 08/30/17 08/30/17 Unknown History [Genvoya Tablet] Ferrous Sulfate [Feosol] 325 mg PO BID 08/30/17 08/30/17 Unknown History levETIRAcetam [Keppra TAB] 750 mg PO BID 08/30/17 08/30/17 Unknown History Active Meds: Active Medications Acetaminophen (Tylenol) 650 mg PO Q4H PRN PRN Reason: For Pain/Fever/Headache Ferrous Sulfate (Feosol) 325 mg PO BID [facility] Last Admin: 09/03/17 12:24 Dose: 325 mg Levofloxacin/Dextrose (Levaquin 750mg/150ml) 750 mg in 150 mls @ 100 mls/hr IV DAILY@2200 [facility] Last Admin: 09/02/17 22:43 Dose: 100 mls/hr Sodium Chloride (Nacl 0.9% 1000 Ml) 1,000 mls @ 150 mls/hr IV DIRECT [facility] Last Admin: 09/02/17 02:13 Dose: 150 mls/hr Folic Acid 1 mg/ Sodium (Chloride) 50.2 mls @ 200.8 mls/hr IV Q24H [facility] Last Admin: 09/02/17 22:40 Dose: 200.8 mls/hr Thiamine HCl 100 mg/ Sodium (Chloride) 51 mls @ 100 mls/hr IV Q24H [facility] Last Admin: 09/02/17 22:42 Dose: 100 mls/hr Levetiracetam (Keppra) 750 mg PO BID [facility] Last Admin: 09/03/17 12:23 Dose: 750 mg Lisinopril (Zestril) 40 mg PO QDAY [facility] Last Admin: 09/02/17 11:00 Dose: 40 mg Lorazepam (Ativan) 1 mg IV Q2H PRN PRN Reason: Seizures Last Admin: 08/31/17 05:28 Dose: 1 mg Metoclopramide HCl (Reglan) 10 mg IV Q6H PRN PRN Reason: Nausea And Vomiting Metoprolol Succinate (Toprol Xl) 100 mg PO QDAY [facility] Last Admin: 09/03/17 12:24 Dose: 100 mg Miscellaneous Medication (Elviteg/Cob/Emtri/Tenof Alafen [Genvoya Tablet]) 1 each PO QDAY [facility] Last Admin: 09/03/17 12:23 Dose: 1 each Morphine Sulfate (Morphine) 2 mg IV Q4H PRN PRN Reason: Pain, Moderate (4-6) Ondansetron HCl (Zofran) 4 mg IV Q8H PRN PRN Reason: Nausea And Vomiting Warfarin Sodium (Coumadin Pharmacy To Dose) 1 each PO PKCONSULT [facility] PRN Reason: Protocol Review of Systems All systems: negative (see HPI) Exam - Constitutional Vitals: Temp Pulse Resp BP Pulse Ox 98.4 F 73 18 157/93 100 09/03/17 10:23 09/03/17 12:24 09/03/17 10:23 09/03/17 12:24 09/03/17 10:23 General appearance: Present: no acute distress - EENT Eyes: Present: EOM intact ENT: hearing intact - Respiratory Respiratory effort: normal - Abdominal General gastrointestinal: Present: soft - Psychiatric Psychiatric: appropriate mood/affect, cooperative Results - Labs CBC & Chem 7: 09/03/17 05:47 09/03/17 05:47 Labs: Abnormal lab results 09/03/17 09/03/17 Range/Units 05:47 05:47 WBC 1.5 L* (4.5-11.0) K/mm3 RBC 3.21 L (3.65-5.03) M/mm3 Hgb 10.5 L (11.8-15.2) gm/dl Hct 30.8 L (35.5-45.6) % MCV 96 H (84-94) fl MCH 33 H (28-32) pg Plt Count 86 L (140-440) K/mm3 Seg Neuts % (Manual) 72.0 H (40.0-70.0) % Lymphocytes % (Manual) 12.0 L (13.4-35.0) % Eosinophils % (Manual) 16.0 H (0.0-4.3) % Seg Neutrophils # Man 1.1 L (1.8-7.7) K/mm3 Lymphocytes # (Manual) 0.2 L (1.2-5.4) K/mm3 Potassium 3.3 L (3.6-5.0) mmol/L Carbon Dioxide 21 L (22-30) mmol/L BUN 8 L (9-20) mg/dL Magnesium 1.50 L (1.7-2.3) mg/dL AST 72 H (5-40) units/L Albumin 2.7 L (3.9-5) g/dL - Imaging and Cardiology Venous US: report reviewed, image reviewed Assessment and Plan 57-year-old male with multiple medical issues with noncompliance and bilateral lower extremity DVTs. Given the patient's bilateral lower extremity DVTs, and noncompliance, I had a discussion with the patient about possible IVC filter. Patient agrees that he will likely be noncompliant in the future. I discussed with him that the filter is retrievable, and I recommend he follows up with me in 3 months. At that time, if he has been compliant with his anticoagulation, IVC filter removal can be performed.
[2017-09-03] MEDS ORDERED: XYLOCAINE 2% INFILTRATI ONE (13:43)
[2017-09-03] MEDS ORDERED: ANCEF/STERILE WATER 2 GM/20 ML 2 GM/20 ML SYRINGE IV ONE (13:43)
[2017-09-03] MEDS ORDERED: HEPARIN 10,000 UNITS/10 ML ONE (13:43)
[2017-09-03] MEDS ORDERED: NACL 0.9% 500 ML 500 ML ONE (13:43)
[2017-09-03] MEDS ORDERED: HEPARIN/NS 5000 UNIT/500ML(CATH LAB) 500 ML IR ONE (13:43)
--- NOTE | 2017-09-03 13:44 | Progress Note ---
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 Plan: s/p lexiscan MPI stress test this AM which showed fixed apical and inferior defects, EF 54%, c/w NICMP. Cont Toprol XL and lisinopril. Replete electrolytes. Repeat BMP and Mg in AM. Per hematology, he can be switched to Coumadin, IVC filter recommended. For bone marrow biopsy tomorrow. Currently stable cardiac status. Nothing further to add from cardiac perspective. Follow up in our [place] office with Samantha Gill NP, on 09/08/2017 @ 1:00PM. Assessment and plan reviewed with pt at bedside. The patient has been seen in conjunction with Dr. Delgado who agrees with the assessment and plan of care. Subjective Date of service: 09/03/17 Principal diagnosis: elevated LFTs Interval history: Pt for stress test today. no current complaints. Objective Last Vital Signs Temp 98.4 F 09/03/17 10:23 Pulse 73 09/03/17 12:24 Resp 18 09/03/17 10:23 BP 157/93 09/03/17 12:24 Pulse Ox 100 09/03/17 10:23 - Physical Examination HEENT: Positive: PERRL, Normocephaly, Mucus Membranes Moist Neck: Positive: neck supple, trachea midline Cardiac: Positive: Reg Rate and Rhythm, S1/S2 Lungs: Positive: Decreased Breath Sounds Neuro: Positive: Grossly Intact Abdomen: Positive: Soft. Negative: Tender Skin: Positive: Clear. Negative: Rash, Wound Musculoskeletal: No Fluid Collection, No Pain, Normal Range of Motion Extremities: Absent: edema - Labs and Meds Cardiac Enzymes 09/03/17 Range/Units 05:47 AST 72 H (5-40) units/L CBC 09/03/17 Range/Units 05:47 WBC 1.5 L* (4.5-11.0) K/mm3 RBC 3.21 L (3.65-5.03) M/mm3 Hgb 10.5 L (11.8-15.2) gm/dl Hct 30.8 L (35.5-45.6) % Plt Count 86 L (140-440) K/mm3 Comprehensive Metabolic Panel 09/03/17 Range/Units 05:47 Sodium 138 (137-145) mmol/L Potassium 3.3 L (3.6-5.0) mmol/L Chloride 105.0 (98-107) mmol/L Carbon Dioxide 21 L (22-30) mmol/L BUN 8 L (9-20) mg/dL Creatinine 1.0 (0.8-1.5) mg/dL Glucose 92 (75-100) mg/dL Calcium 8.8 (8.4-10.2) mg/dL AST 72 H (5-40) units/L ALT 44 (7-56) units/L Alkaline Phosphatase 91 (35-129) units/L Total Protein 6.8 (6.3-8.2) g/dL Albumin 2.7 L (3.9-5) g/dL - Imaging and Cardiology EKG: report reviewed, image reviewed Echo: report reviewed ( EF 35-40%, trace MR, trace TR. ) - EKG Sinus rhythms and dysrhythmias: sinus rhythm Repolarization changes or abnormalities: nonspecific abnormality, ST segment, and/or T wave
[2017-09-03] MEDS: VERSED ONE ×2 (14:21→14:26)
[2017-09-03] MEDS: SUBLIMAZE ONE ×2 (14:21→14:26)
[2017-09-03] MEDS ORDERED: VERSED ONE (14:43)
[2017-09-03] MEDS ORDERED: SUBLIMAZE ONE (14:44)
--- NOTE | 2017-09-03 14:52 | Operative Report ---
Operative Report Operative Report: EXAM: 1. Ultrasound guided access of the right internal jugular vein 2. Selection of the IVC with venography 3. Selection of the left renal vein with venography 4. Fluoroscopic guided placement of an infrarenal Wilkes retrievable IVC filter DATE: 09/03/17 INDICATION: 57-year-old male noncompliant with bilateral lower extremity DVTs with request for IVC filter. I had a long discussion with the patient, and the patient admitted he is noncompliant and would like an IVC filter to protect him from self discontinuation of anticoagulation. MEDICATIONS: Continuous cardiopulmonary monitoring was performed during this procedure. Please review the nursing record for a list of all medications. DEVICES: Retrievable Bard April IVC filter. OR RN: DIOMEDES SEPULVEDA MD CONTRAST: Please see Lab report for full details. PROCEDURE: The risks, benefits, and alternatives were discussed; written informed consent was obtained. The patient was transported to the angiography suite in stable condition. The patient was transported on the table and the right internal jugular was assessed with ultrasound to ensure patency. The patient was prepped and draped in a sterile fashion. The right internal jugular vein was accessed with an 21-gauge needle under direct ultrasound guidance. Under direct ultrasound guidance, the right internal jugular vein was accessed with a 21- gauge needle. 0.018 inch wire was advanced through the needle and the needle was exchanged for a transitional dilation. Inner dilator and wire was removed. 0.035 inch wire was passed into the inferior vena cava. The transitional dilator was exchanged for a 5 [place] sheath and a 5 [place] pigtail catheter was advanced over the wire and passed into the inferior vena cava. Digital subtraction venography was performed. Digital subtraction angiography was performed demonstrating patency of the common iliac veins, and lower IVC. There is a caval collateral arising from the lower IVC. The midportion of the cava has a large area of extrinsic compression on the left-hand side which is possibly exacerbated by the left renal vein inflow. The right renal vein is visualized. The suprarenal IVC is patent. Pigtail catheter was then repositioned in the IVC and repeat venography was performed in order to better evaluate the left renal inflow. This was not adequate to visualize the left renal inflow. Catheter was used to select the left renal vein and digital subtraction angiography demonstrated patency of the left renal vein. Digital subtraction angiography demonstrated the left renal inflow and the IVC at the left renal vein with no filling defect. This confirms that the previously visualized defect was likely due to extrinsic compression. I then passed a wire into the infrarenal IVC. The sheath was removed over the wire. The IVC filter sheath and introducer were advanced over the wire under direct fluoroscopic guidance. The wire and introducer were removed. The IVC filter deployment system was advanced through the sheath and properly positioned under fluoroscopic guidance. The IVC filter was deployed under direct fluoroscopic guidance. Venography was performed through the sheath to confirm position. Bard April IVC filter is properly positioned, below the renal veins and above the iliocaval confluence with patent IVC. The deployment system, and sheath were removed. Pressure was held until hemostasis was achieved. The patient was transferred from the angiography suite in stable condition. FINDINGS: Please see report above IMPRESSION: Successful placement of a retrievable Bard Wilkes IVC filter. No evidence of caval thrombus. Discussed with Dr. Montague. Recommend CT of the abdomen and pelvis to exclude mass exerting mass effect on the IVC. PLAN: Patient should follow-up with [facility] in 12 weeks to assess if he is a candidate for IVC filter removal (i.e. If the patient is compliant with medication.)
--- NOTE | 2017-09-03 14:52 | Post Operative Note ---
Date of procedure: 09/03/17 Pre-op diagnosis: DVT with noncompliance with anticoagulation Post-op diagnosis: same Findings: 75 mL contrast used Anomalous appearance of IVC which, after left renal vein venography, may be related to large left renal vein inflow effect. Discussed with Dr. Montague, recommend CT of the abdomen and pelvis tomorrow to exclude left renal lesion. Procedure: 1. Ultrasound guided access of the right internal jugular vein 2. Selection of the IVC with venography 3. Selection of the left renal vein with venography 4. Fluoroscopic guided placement of an infrarenal Milam retrievable IVC filter Anesthesia: local (w/ conscious sedaiton) Surgeon: DIOMEDES SEPULVEDA Estimated blood loss: minimal Condition: stable Disposition: floor
[2017-09-03] MEDS ORDERED: K-DUR PO ONE ×2 (15:00→18:15)
[2017-09-03] MEDS ORDERED: MAGNESIUM SULFATE 2GM/50ML 2 GM/50 ML BAG IV ONE (15:17)
[2017-09-03 16:31] LABS: Heparin-Induced Platelet Antib Positive (Negative); Unfractionated Heparin Negative (Negative)
--- NOTE | 2017-09-03 17:09 | Progress Note ---
Assessment and Plan Assessment and plan: Patient is a 57 y/o male with PMH of seizures, HTN, HIV and alcohol abuse, admitted with seizure disorder due to non compliance with medications, and alcohol abuse and noed to have sepsis secondary to UTI, and Bilateral DVT. He was also noted to have alcoholic hepatitis. Patient reports no hx of IV drug use. Admits to drinking 1/2 a pint and a couple of beers daily. Acute on chronic systolic heart failure * I/O, Daily weight, Echo. will monitor closely. 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 Pt with current CHADS score of 1 and thus systemic anticoagulation in regards to paroxysmal atrial flutter is not indicated. 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 fondaparinux till warfarin therapeutic Pancytopenia with worsening leukocytopenia * Hemeonc input noted multilateral, likely secondary from HIV, Alcholoic hepatitis. Elevated LFTs/Hepatitis B-STABLE * GI evaluated. Hepatitis B. possible alcoholic hepatitis, but no indication for steroids at this time * Follow with GI in 3-4 weeks. * Diagnosis discussed with patient. Bilateral LE DVT * Fondaparinux. Hematology eval. Warfarin started * Compliance stressed. * IV Filter placed. Sepsis / UTI * Cultures with no growth, levaquin HIV * Per hx, on antiretroviral, ?compliance IVC abnormailty * Noted during Filter placement. Will obtain CT abdomen and pelvis with contrast. Continue hydration. Severe malnutrition with anorexia * Switchboard Receptionist consulted EVELYN * gentle hydration. ETOH abuse / tobacco use - cessation encouraged 15 mins spent. resources provided DVT/GI prophy Plan discussed with patient, vascular Dr Alexander and Sql Database Developer DR Parekh. History Interval history: Patient seen and examined in no acute distress, sitting up at the bedside. denies chest pain, nausea, vomiting, abdominal pain, leg pain. Not confirming complinace, extensive counselling given. He is agreeable to place filter Hospitalist Physical - Physical exam Narrative exam: General appearance: Present: no acute distress, cachectic - EENT Eyes: PERRL, EOM intact - Neck Neck: supple, normal ROM - Respiratory Respiratory effort: normal Respiratory: bilateral: CTA - Cardiovascular Rhythm: regular Heart Sounds: Present: S1 & S2.irregular Absent: gallop, rub Extremities: pulses intact, No edema, normal color, Full ROM - Gastrointestinal General gastrointestinal: Present: soft, non-tender, non-distended, normal bowel sounds - Integumentary Integumentary: clear, warm, dry - Musculoskeletal Musculoskeletal: 1, strength equal bilaterally - Neurologic Neurologic: moves all extremities - Psychiatric Psychiatric: memory intact, appropriate mood/affect, - Constitutional Vitals: Temp Pulse Resp BP Pulse Ox 98.4 F 73 18 157/93 100 09/03/17 10:23 09/03/17 12:24 09/03/17 10:23 09/03/17 12:24 09/03/17 10:23 General appearance: Present: no acute distress, well-nourished Results - Labs CBC & Chem 7: 09/03/17 05:47 09/03/17 05:47 Labs: Laboratory Last Values WBC 1.5 K/mm3 (4.5-11.0) L* 09/03/17 05:47 RBC 3.21 M/mm3 (3.65-5.03) L 09/03/17 05:47 Hgb 10.5 gm/dl (11.8-15.2) L 09/03/17 05:47 Hct 30.8 % (35.5-45.6) L 09/03/17 05:47 MCV 96 fl (84-94) H 09/03/17 05:47 MCH 33 pg (28-32) H 09/03/17 05:47 MCHC 34 % (32-34) 09/03/17 05:47 RDW 13.7 % (13.2-15.2) 09/03/17 05:47 Plt Count 86 K/mm3 (140-440) L 09/03/17 05:47 Lymph % (Auto) 12.0 % (13.4-35.0) L 09/01/17 04:50 [place] % (Auto) Sap Data Architect 09/03/17 05:47 Eos % (Auto) 1.6 % (0.0-4.3) 09/01/17 04:50 Baso % (Auto) 1.0 % (0.0-1.8) 09/01/17 04:50 Lymph # 0.4 K/mm3 (1.2-5.4) L 09/01/17 04:50 [place] # 0.3 K/mm3 (0.0-0.8) 09/01/17 04:50 Eos # 0.0 K/mm3 (0.0-0.4) 09/01/17 04:50 Baso # 0.0 K/mm3 (0.0-0.1) 09/01/17 04:50 Add Manual Diff Complete 09/03/17 05:47 Total Counted 25 09/03/17 05:47 Seg Neutrophils % 75.9 % (40.0-70.0) H 09/01/17 04:50 Seg Neuts % (Manual) 72.0 % (40.0-70.0) H 09/03/17 05:47 Band Neutrophils % 0 % 09/03/17 05:47 Lymphocytes % (Manual) 12.0 % (13.4-35.0) L 09/03/17 05:47 Reactive Lymphs % (Man) 0 % 09/03/17 05:47 Monocytes % (Manual) 0 % (0.0-7.3) 09/03/17 05:47 Eosinophils % (Manual) 16.0 % (0.0-4.3) H 09/03/17 05:47 Basophils % (Manual) 0 % (0.0-1.8) 09/03/17 05:47 Metamyelocytes % 0 % 09/03/17 05:47 Myelocytes % 0 % 09/03/17 05:47 Promyelocytes % 0 % 09/03/17 05:47 Blast Cells % 0 % 09/03/17 05:47 Nucleated RBC % Not Reportable 09/03/17 05:47 Seg Neutrophils # 2.3 K/mm3 (1.8-7.7) 09/01/17 04:50 Seg Neutrophils # Man 1.1 K/mm3 (1.8-7.7) L 09/03/17 05:47 Band Neutrophils # 0.0 K/mm3 09/03/17 05:47 Lymphocytes # (Manual) 0.2 K/mm3 (1.2-5.4) L 09/03/17 05:47 Abs React Lymphs (Man) 0.0 K/mm3 09/03/17 05:47 Monocytes # (Manual) 0.0 K/mm3 (0.0-0.8) 09/03/17 05:47 Eosinophils # (Manual) 0.2 K/mm3 (0.0-0.4) 09/03/17 05:47 Basophils # (Manual) 0.0 K/mm3 (0.0-0.1) 09/03/17 05:47 Metamyelocytes # 0.0 K/mm3 09/03/17 05:47 Myelocytes # 0.0 K/mm3 09/03/17 05:47 Promyelocytes # 0.0 K/mm3 09/03/17 05:47 Blast Cells # 0.0 K/mm3 09/03/17 05:47 WBC Morphology Not Reportable 09/03/17 05:47 Hypersegmented Neuts Not Reportable 09/03/17 05:47 Hyposegmented Neuts Not Reportable 09/03/17 05:47 Hypogranular Neuts Not Reportable 09/03/17 05:47 Smudge Cells Not Reportable 09/03/17 05:47 Toxic Granulation Not Reportable 09/03/17 05:47 Toxic Vacuolation Not Reportable 09/03/17 05:47 Dohle Bodies Not Reportable 09/03/17 05:47 Pelger-Huet Anomaly Not Reportable 09/03/17 05:47 Chase Rods Not Reportable 09/03/17 05:47 Platelet Estimate Appears decreased 09/03/17 05:47 Clumped Platelets Not Reportable 09/03/17 05:47 Plt Clumps, EDTA Not Reportable 09/03/17 05:47 Large Platelets Not Reportable 09/03/17 05:47 Giant Platelets Not Reportable 09/03/17 05:47 Platelet Satelliting Not Reportable 09/03/17 05:47 Plt Morphology Comment Not Reportable 09/03/17 05:47 RBC Morphology Not Reportable 09/03/17 05:47 Dimorphic RBCs Not Reportable 09/03/17 05:47 Polychromasia Rare 09/03/17 05:47 Hypochromasia Not Reportable 09/03/17 05:47 Poikilocytosis Not Reportable 09/03/17 05:47 Anisocytosis 1+ 09/03/17 05:47 Microcytosis Rare 09/03/17 05:47 Macrocytosis Not Reportable 09/03/17 05:47 Spherocytes Not Reportable 09/03/17 05:47 Pappenheimer Bodies Not Reportable 09/03/17 05:47 Sickle Cells Not Reportable 09/03/17 05:47 Target Cells Not Reportable 09/03/17 05:47 Tear Drop Cells Rare 09/03/17 05:47 Ovalocytes Not Reportable 09/03/17 05:47 Helmet Cells Rare 09/03/17 05:47 [place] Bodies Not Reportable 09/03/17 05:47 [place] Rings Not Reportable 09/03/17 05:47 Matt Cells Not Reportable 09/03/17 05:47 Bite Cells Not Reportable 09/03/17 05:47 Crenated Cell Not Reportable 09/03/17 05:47 Elliptocytes Few 09/03/17 05:47 Acanthocytes (Spur) Not Reportable 09/03/17 05:47 Rouleaux Not Reportable 09/03/17 05:47 Hemoglobin C Crystals Not Reportable 09/03/17 05:47 Schistocytes Not Reportable 09/03/17 05:47 Malaria parasites Not Reportable 09/03/17 05:47 Percent Retic 1.50 % (0.78-2.58) 09/02/17 11:22 Facundo Bodies Not Reportable 09/03/17 05:47 Hem Pathologist Commnt No 09/03/17 05:47 PT 15.1 Sec. (12.2-14.9) H 08/31/17 21:07 INR 1.13 (0.87-1.13) 08/31/17 21:07 APTT 34.2 Sec. (24.2-36.6) 08/31/17 21:07 D-Dimer 1484.20 ng/mlDDU (0-234) H 08/30/17 21:20 Heparin Anti-Xa Level 0.12 U.I./ml (0.3-0.7) L 09/01/17 11:31 Heparin Anti-Xa, Unfract Negative (Negative) 09/01/17 13:07 Sodium 138 mmol/L (137-145) 09/03/17 05:47 Potassium 3.3 mmol/L (3.6-5.0) L 09/03/17 05:47 Chloride 105.0 mmol/L (98-107) 09/03/17 05:47 Carbon Dioxide 21 mmol/L (22-30) L 09/03/17 05:47 Anion Gap 15 mmol/L 09/03/17 05:47 BUN 8 mg/dL (9-20) L 09/03/17 05:47 Creatinine 1.0 mg/dL (0.8-1.5) 09/03/17 05:47 Estimated GFR > 60 ml/min 09/03/17 05:47 BUN/Creatinine Ratio 8 % 09/03/17 05:47 Glucose 92 mg/dL (75-100) 09/03/17 05:47 Lactic Acid 2.00 mmol/L (0.7-2.0) 08/30/17 20:20 Calcium 8.8 mg/dL (8.4-10.2) 09/03/17 05:47 Phosphorus 2.60 mg/dL (2.5-4.5) 09/01/17 04:50 Magnesium 1.50 mg/dL (1.7-2.3) L 09/03/17 05:47 Iron 93 ug/dL (49-181) 09/02/17 11:22 TIBC 179 mcg/dL (250-450) L 09/02/17 11:22 % Saturation 51.96 % 09/02/17 11:22 Transferrin 163 mg/dl (180-329) L 09/02/17 11:22 Ferritin 931.9 ng/mL (13.0-400.0) H 09/02/17 11:22 Total Bilirubin 1.20 mg/dL (0.1-1.2) 09/03/17 05:47 Direct Bilirubin 0.8 mg/dL (0-0.2) H 08/30/17 17:52 Indirect Bilirubin 1.5 mg/dL 08/30/17 17:52 AST 72 units/L (5-40) H 09/03/17 05:47 ALT 44 units/L (7-56) 09/03/17 05:47 Alkaline Phosphatase 91 units/L (35-129) 09/03/17 05:47 Total Creatine Kinase 92 units/L (55-170) 08/30/17 21:20 CK-MB (CK-2) 2.6 ng/mL (0.0-4.0) 08/30/17 21:20 CK-MB (CK-2) Rel Index 2.8 (0-4) 08/30/17 21:20 Troponin T < 0.010 ng/mL (0.00-0.029) 08/30/17 21:20 NT-Pro-B Natriuret Pep 1858 pg/mL (0-900) H 08/30/17 21:20 Total Protein 6.8 g/dL (6.3-8.2) 09/03/17 05:47 Albumin 2.7 g/dL (3.9-5) L 09/03/17 05:47 Albumin/Globulin Ratio 0.7 % 09/03/17 05:47 Lipase 27 units/L (13-60) 08/31/17 20:38 Vitamin B12 937.7 pg/mL (211-911) H 09/02/17 11:22 Folate 14.47 ng/mL (7.3-26.0) 09/02/17 11:22 TSH 0.531 mlU/mL (0.270-4.200) 08/30/17 21:20 Free T4 0.76 ng/dL (0.76-1.46) 08/30/17 17:52 Urine Color [place] (Yellow) 08/30/17 21:07 Urine Turbidity Clear (Clear) 08/30/17 21:07 Urine pH 5.0 (5.0-7.0) 08/30/17 21:07 Ur Specific [place] 1.013 (1.003-1.030) 08/30/17 21:07 Urine Protein 100 mg/dl mg/dL (Negative) 08/30/17 21:07 Urine Glucose (UA) Neg mg/dL (Negative) 08/30/17 21:07 Urine Ketones Neg mg/dL (Negative) 08/30/17 21:07 Urine Blood Lg (Negative) 08/30/17 21:07 Urine Nitrite Neg (Negative) 08/30/17 21:07 Urine Bilirubin Neg (Negative) 08/30/17 21:07 Urine Urobilinogen 2.0 mg/dL (<2.0) 08/30/17 21:07 Ur Leukocyte Esterase Lg (Negative) 08/30/17 21:07 Urine WBC (Auto) > 182.0 /HPF (0.0-6.0) H 08/30/17 21:07 Urine RBC (Auto) 18.0 /HPF (0.0-6.0) 08/30/17 21:07 U Epithel Cells (Auto) 5.0 /HPF (0-13.0) 08/30/17 21:07 Urine Bacteria (Auto) 2+ /HPF (Negative) 08/30/17 21:07 Urine Opiates Screen Presumptive negative 08/30/17 21:07 Urine Methadone Screen Presumptive negative 08/30/17 21:07 Ur Barbiturates Screen Presumptive negative 08/30/17 21:07 Ur Phencyclidine Scrn Presumptive negative 08/30/17 21:07 Ur Amphetamines Screen Presumptive negative 08/30/17 21:07 U Benzodiazepines Scrn Presumptive negative 08/30/17 21:07 Urine Cocaine Screen Presumptive negative 08/30/17 21:07 U Marijuana (THC) Screen Presumptive negative 08/30/17 21:07 Drugs of Abuse Note Disclamer 08/30/17 21:07 Plasma/Serum Alcohol < 0.01 gm% (0-0.07) 08/30/17 21:22 Heparin-induced Plt Ab Positive (Negative) H 09/01/17 13:07 UF Heparin High Dose 0 % Release 09/01/17 13:07 TINO UFH Low Dose 0.1 0 % Release 09/01/17 13:07 TINO UFH Low Dose 0.5 0 % Release 09/01/17 13:07 Hepatitis A IgM Ab Non-reactive (NonReactive) 08/31/17 03:42 Hep Bs Antigen Reactive (Negative) 08/31/17 03:42 Hep B Core IgM Ab Non-reactive (NonReactive) 08/31/17 03:42 Hepatitis C Antibody Non-reactive (NonReactive) 08/31/17 03:42
[2017-09-03] MEDS: COUMADIN PO SCH (18:25)
[2017-09-03] MEDS: ARIXTRA SUB-Q SCH (18:35)
[2017-09-03] MEDS: LEVAQUIN 750MG/150ML 750 MG/150 ML BAG IV SCH (22:59)
[2017-09-03] MEDS: VITAMIN B-1 100 MG in NACL 0.9% 50 ML IV SCH (23:01)
[2017-09-03] MEDS: FOLVITE 1 MG in NACL 0.9% 50 ML IV SCH (23:01)
[2017-09-03] MEDS: NACL 0.9% 1000 ML 1,000 ML IV SCH (23:02)
--- NOTE | 2017-09-04 01:36 | Treadmill Report ---
This is a single isotope dual study myocardial perfusion scan report. AGE: 57. SEX: Male. DESCRIPTION OF PROCEDURE: The patient received 10 mCi of technetium 99m Myoview intravenously under resting conditions. Resting myocardial perfusion scan was done. Subsequently, the patient underwent Lexiscan stress test as per the protocol. During Lexiscan stress test, the patient received 28 mCi of technetium 99m Myoview intravenously. After 30-60 minutes, post stress images were done. Computerized reconstructed images were performed for analysis. The post-stress images revealed small mild apical perfusion defect and small mild inferior wall perfusion defect. Gated study did not reveal any wall motion abnormality. The left ventricular ejection fraction was low normal and was calculated to be 54%. The resting images again revealed the perfusion defect seen in the stress images. CONCLUSION: 1. Small mild fixed apical perfusion defect. 2. Small mild fixed inferior wall perfusion defect. 3. No wall motion abnormality. 4. Low normal left ventricular ejection fraction of 54%. JOB# [id number] [facility]
[2017-09-04 06:18] LABS: Hematocrit 33.7 % (35.5-45.6); Hemoglobin 11.3 gm/dl (11.8-15.2); Mean Corpuscular HGB Conc 34 % (32-34); Mean Corpuscular Hemoglobin 32 pg (28-32); Mean Corpuscular Volume 96 fl (84-94); Platelet Count 93 K/mm3 (140-440); Red Blood Count 3.51 M/mm3 (3.65-5.03); Red Cell Distribution Width 13.7 % (13.2-15.2)
[2017-09-04 06:26] LABS: INR 1.06 (0.87-1.13)
[2017-09-04 06:44] LABS: Alanine Aminotransferase 36 units/L (7-56); Albumin 2.7 g/dL (3.9-5); Albumin/Globulin Ratio 0.6 %; Alkaline Phosphatase 91 units/L (35-129); Anion Gap 14 mmol/L; BUN/Creatinine Ratio 6; Blood Urea Nitrogen 6 mg/dL (9-20); Calcium 8.7 mg/dL (8.4-10.2); Carbon Dioxide 22 mmol/L (22-30); Chloride 104.1 mmol/L (98-107); Glucose 87 mg/dL (75-100); Potassium 3.8 mmol/L (3.6-5.0); Sodium 136 mmol/L (137-145); Total Protein 7.1 g/dL (6.3-8.2)
[2017-09-04 07:31] LABS: Anisocytosis 1+; Blastocytes % (Manual) 0 %; Diff Status Complete; Platelet Estimate Consistent w Auto; Polychromasia Rare
[2017-09-04] MEDS ORDERED: VERSED IV NR (08:15)
[2017-09-04] MEDS ORDERED: SUBLIMAZE IV NR (08:15)
[2017-09-04] MEDS ORDERED: NACL ONE (08:29)
--- NOTE | 2017-09-04 09:14 | Hem/Onc Progress Note ---
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 Discussed with Dr. mancera. We will continue Arixtra and start Coumadin. Patient has compliance issues but IVC filter has been placed because of that. Patient has neutropenia and bone marrow biopsy has been ordered. Once INR therapeutic, he can be discharged and we can follow-up as outpatient. Heparin allergy should be put in the patient's allergy section Subjective Date of service: 09/04/17 Interval history: Patient feels fair. Case discussed with Dr. mancera. Patient is status post IVC filter. Denies any active bleeding Objective - Constitutional Vitals: Last Vital Signs Temp 97.8 F 09/04/17 00:50 Pulse 93 H 09/04/17 07:00 Resp 20 09/04/17 05:20 BP 143/75 09/04/17 05:23 Pulse Ox 93 09/04/17 05:20 Pain Intensity (0-10): denies any pain General appearance: no acute distress, cachectic Performance status: 2- selfcare, ambulatory - Neck Neck: supple - Respiratory Respiratory effort: Positive: normal Respiratory: bilateral: CTA - Cardiovascular Rhythm: regular Extremities: No edema - Labs Lab Results: Laboratory Results - last 24 hr 09/01/17 09/04/17 09/04/17 13:07 05:18 05:18 WBC 2.0 L RBC 3.51 L Hgb 11.3 L Hct 33.7 L MCV 96 H MCH 32 MCHC 34 RDW 13.7 Plt Count 93 L [place] % (Auto) Pedigree Tracer Add Manual Diff Complete Total Counted 100 Seg Neuts % (Manual) 47.0 Band Neutrophils % 0 Lymphocytes % (Manual) 26.0 Reactive Lymphs % (Man) 0 Monocytes % (Manual) 17.0 H Eosinophils % (Manual) 8.0 H Basophils % (Manual) 2.0 H Metamyelocytes % 0 Myelocytes % 0 Promyelocytes % 0 Blast Cells % 0 Nucleated RBC % Not Reportable Seg Neutrophils # Man 0.9 L Band Neutrophils # 0.0 Lymphocytes # (Manual) 0.5 L Abs React Lymphs (Man) 0.0 Monocytes # (Manual) 0.3 Eosinophils # (Manual) 0.2 Basophils # (Manual) 0.0 Metamyelocytes # 0.0 Myelocytes # 0.0 Promyelocytes # 0.0 Blast Cells # 0.0 WBC Morphology Not Reportable Hypersegmented Neuts Not Reportable Hyposegmented Neuts Not Reportable Hypogranular Neuts Not Reportable Smudge Cells Not Reportable Toxic Granulation Not Reportable Toxic Vacuolation Not Reportable Dohle Bodies Not Reportable Pelger-Huet Anomaly Not Reportable Chase Rods Not Reportable Platelet Estimate Consistent w auto Clumped Platelets Not Reportable Plt Clumps, EDTA Not Reportable Large Platelets Not Reportable Giant Platelets Not Reportable Platelet Satelliting Not Reportable Plt Morphology Comment Not Reportable RBC Morphology Not Reportable Dimorphic RBCs Not Reportable Polychromasia Rare Hypochromasia Not Reportable Poikilocytosis Not Reportable Anisocytosis 1+ Microcytosis Not Reportable Macrocytosis Not Reportable Spherocytes Not Reportable Pappenheimer Bodies Not Reportable Sickle Cells Not Reportable Target Cells Not Reportable Tear Drop Cells Not Reportable Ovalocytes Not Reportable Helmet Cells Not Reportable [place] Bodies Not Reportable [place] Rings Not Reportable [place] Cells Not Reportable Bite Cells Not Reportable Crenated Cell Not Reportable Elliptocytes Not Reportable Acanthocytes (Spur) Not Reportable Rouleaux Not Reportable Hemoglobin C Crystals Not Reportable Schistocytes Not Reportable Malaria parasites Not Reportable Facundo Bodies Not Reportable Hem Pathologist Commnt No PT INR Heparin Anti-Xa, Unfract Negative Sodium 136 L Potassium 3.8 Chloride 104.1 Carbon Dioxide 22 Anion Gap 14 BUN 6 L Creatinine 1.0 Estimated GFR > 60 BUN/Creatinine Ratio 6 Glucose 87 Calcium 8.7 Magnesium 1.60 L Total Bilirubin 1.10 AST 51 H ALT 36 Alkaline Phosphatase 91 Total Protein 7.1 Albumin 2.7 L Albumin/Globulin Ratio 0.6 Heparin-induced Plt Ab Positive H UF Heparin High Dose 0 TINO UFH Low Dose 0.1 0 TINO UFH Low Dose 0.5 0 09/04/17 05:18 WBC RBC Hgb Hct MCV MCH MCHC RDW Plt Count [place] % (Auto) Add Manual Diff Total Counted Seg Neuts % (Manual) Band Neutrophils % Lymphocytes % (Manual) Reactive Lymphs % (Man) Monocytes % (Manual) Eosinophils % (Manual) Basophils % (Manual) Metamyelocytes % Myelocytes % Promyelocytes % Blast Cells % Nucleated RBC % Seg Neutrophils # Man Band Neutrophils # Lymphocytes # (Manual) Abs React Lymphs (Man) Monocytes # (Manual) Eosinophils # (Manual) Basophils # (Manual) Metamyelocytes # Myelocytes # Promyelocytes # Blast Cells # WBC Morphology Hypersegmented Neuts Hyposegmented Neuts Hypogranular Neuts Smudge Cells Toxic Granulation Toxic Vacuolation Dohle Bodies Pelger-Huet Anomaly [place] Rods Platelet Estimate Clumped Platelets Plt Clumps, EDTA Large Platelets Giant Platelets Platelet Satelliting Plt Morphology Comment RBC Morphology Dimorphic RBCs Polychromasia Hypochromasia Poikilocytosis Anisocytosis Microcytosis Macrocytosis Spherocytes Pappenheimer Bodies Sickle Cells Target Cells Tear Drop Cells Ovalocytes Helmet Cells [place] Bodies [place] Rings Matt Cells Bite Cells Crenated Cell Elliptocytes Acanthocytes (Spur) Rouleaux Hemoglobin C Crystals Schistocytes Malaria parasites Facundo Bodies Hem Pathologist Commnt PT 14.4 INR 1.06 Heparin Anti-Xa, Unfract Sodium Potassium Chloride Carbon Dioxide Anion Gap BUN Creatinine Estimated GFR BUN/Creatinine Ratio Glucose Calcium Magnesium Total Bilirubin AST ALT Alkaline Phosphatase Total Protein Albumin Albumin/Globulin Ratio Heparin-induced Plt Ab UF Heparin High Dose TINO UFH Low Dose 0.1 TINO UFH Low Dose 0.5
[2017-09-04] MEDS ORDERED: VERSED IV ONE (11:16)
[2017-09-04] MEDS ORDERED: SUBLIMAZE ONE (11:16)
[2017-09-04] MEDS ORDERED: MAGNESIUM SULFATE IV ONE (11:24)
--- NOTE | 2017-09-04 12:33 | Vascular Lab Report ---
MISCELLANEOUS VESSEL IDENTIFICATION: COMMENTS ON THE SCAN: The right internal jugular vein was identified and under real-time ultrasound guidance was cannulated. IMPRESSION: Successful ultrasound guided vein cannulation.
[2017-09-04] MEDS: KEPPRA PO SCH (12:39)
[2017-09-04] MEDS: NON-FORMULARY (Elviteg/Cob/Emtri/Tenof Alafen [Genvoya Tablet] 1 EACH) PO SCH (12:39)
[2017-09-04] MEDS: ARIXTRA SUB-Q SCH (12:39)
[2017-09-04] MEDS: FEOSOL PO SCH (12:40)
--- NOTE | 2017-09-04 13:06 | Procedure Note ---
Date of procedure: 09/04/17 Pre-op diagnosis: Pancytopenia Post-op diagnosis: same Procedure: Bone marrow bx and aspiration Anesthesia: local Surgeon: SEBAS CHONG Estimated blood loss: none Specimen disposition: to lab Condition: stable Disposition: floor
--- NOTE | 2017-09-04 13:12 | Cat Scan Report ---
CT of the abdomen and pelvis with IV contrast. History: Inferior vena cava thrombosis. Findings: The liver, spleen, pancreas, and kidneys appear normal. The gallbladder is contracted. A filter is seen in the inferior vena cava. There are no pelvic masses or abnormal fluid collections. No mesenteric inflammation is seen. There is no radiographic evidence of appendicitis. A small ventral hernia containing fat is seen just the right of the midline. The defect measures 1.4 cm in diameter. Impression: Except for the presence of a small ventral hernia containing fat, the study is unremarkable. A vena caval filter is noted.
--- NOTE | 2017-09-04 13:25 | Cat Scan Report ---
CT-guided bone marrow biopsy and aspiration. History: Pancytopenia. Procedure: The patient was placed in the prone position. The skin surface overlying the right iliac bone was prepped and draped using sterile technique. Local anesthetic was injected in the skin. Using CT guidance, a 13-gauge bone biopsy device was advanced into the marrow space of the right posterior iliac bone. Multiple aspirates and core biopsy were performed. Adequate tissue was obtained. Intravenous conscious sedation was used. Intraservice time is 30 minutes. Independent cardiorespiratory monitoring was performed by the outpatient procedure nurse for 30 minutes, supervised by me. The patient tolerated the procedure well clinically and was sent to the floor as an inpatient in satisfactory condition termination of this procedure.
[2017-09-04] MEDS: ZESTRIL PO SCH (14:34)
[2017-09-04] MEDS: TOPROL XL PO SCH (14:34)
[2017-09-04] MEDS ORDERED: MAGNESIUM SULFATE 1 GM in NACL 0.9% 50 ML IV ONE (15:00)
[2017-09-04] MEDS: COUMADIN PO SCH (16:55)
--- NOTE | 2017-09-04 18:18 | Progress Note ---
Assessment and Plan Assessment and plan: Patient is a 57 y/o male with PMH of seizures, HTN, HIV and alcohol abuse, admitted with seizure disorder due to non compliance with medications, and alcohol abuse and noed to have sepsis secondary to UTI, and Bilateral DVT. He was also noted to have alcoholic hepatitis. Patient reports no hx of IV drug use. Admits to drinking 1/2 a pint and a couple of beers daily. Acute on chronic systolic heart failure * I/O, Daily weight, Echo. will monitor closely. 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 Pt with current CHADS score of 1 and thus systemic anticoagulation in regards to paroxysmal atrial flutter is not indicated. 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 fondaparinux till warfarin therapeutic Pancytopenia with worsening leukocytopenia * Hemeonc input noted multilateral, likely secondary from HIV, Alcholoic hepatitis. Elevated LFTs/Hepatitis B-STABLE * GI evaluated. Hepatitis B. possible alcoholic hepatitis, but no indication for steroids at this time * Follow with GI in 3-4 weeks. * Diagnosis discussed with patient. Bilateral LE DVT * Fondaparinux. Hematology eval. Warfarin started * Compliance stressed. * IV Filter placed. Sepsis / UTI * Cultures with no growth, levaquin CHANGED TO PO X 3 DAY THEN STOP HIV * Per hx, on antiretroviral, ?compliance IVC abnormailty * Noted during Filter placement. CT abdomen and pelvis with contrast negative for clot except ventral hernia. * stop IV fluids Severe malnutrition with anorexia * [employer] consulted EVELYN * gentle hydration. ETOH abuse / tobacco use - cessation encouraged 15 mins spent. resources provided DVT/GI prophy Plan discussed with patient, vascular Dr Alexander and Act English Tutor DR Parekh. History Interval history: Patient seen and examined in no acute distress, sitting up at the bedside. denies chest pain, nausea, vomiting, abdominal pain, leg pain. S/P ivc filter placed. spoke with POA, all questions answered. patient went for bone marrow biopsy Hospitalist Physical - Physical exam Narrative exam: General appearance: Present: no acute distress, cachectic - EENT Eyes: PERRL, EOM intact - Neck Neck: supple, normal ROM - Respiratory Respiratory effort: normal Respiratory: bilateral: CTA - Cardiovascular Rhythm: regular Heart Sounds: Present: S1 & S2.irregular Absent: gallop, rub Extremities: pulses intact, No edema, normal color, Full ROM - Gastrointestinal General gastrointestinal: Present: soft, non-tender, non-distended, normal bowel sounds - Integumentary Integumentary: clear, warm, dry - Musculoskeletal Musculoskeletal: 1, strength equal bilaterally - Neurologic Neurologic: moves all extremities - Psychiatric Psychiatric: memory intact, appropriate mood/affect, - Constitutional Vitals: Temp Pulse Resp BP Pulse Ox 98.3 F 69 16 129/79 100 09/04/17 14:02 09/04/17 14:02 09/04/17 14:02 09/04/17 14:02 09/04/17 14:02 General appearance: Present: no acute distress, well-nourished Results - Labs CBC & Chem 7: 09/04/17 05:18 09/04/17 05:18 Labs: Laboratory Last Values WBC 2.0 K/mm3 (4.5-11.0) L 09/04/17 05:18 RBC 3.51 M/mm3 (3.65-5.03) L 09/04/17 05:18 Hgb 11.3 gm/dl (11.8-15.2) L 09/04/17 05:18 Hct 33.7 % (35.5-45.6) L 09/04/17 05:18 MCV 96 fl (84-94) H 09/04/17 05:18 MCH 32 pg (28-32) 09/04/17 05:18 MCHC 34 % (32-34) 09/04/17 05:18 RDW 13.7 % (13.2-15.2) 09/04/17 05:18 Plt Count 93 K/mm3 (140-440) L 09/04/17 05:18 Lymph % (Auto) 12.0 % (13.4-35.0) L 09/01/17 04:50 [place] % (Auto) Chaplaincy 09/04/17 05:18 Eos % (Auto) 1.6 % (0.0-4.3) 09/01/17 04:50 Baso % (Auto) 1.0 % (0.0-1.8) 09/01/17 04:50 Lymph # 0.4 K/mm3 (1.2-5.4) L 09/01/17 04:50 [place] # 0.3 K/mm3 (0.0-0.8) 09/01/17 04:50 Eos # 0.0 K/mm3 (0.0-0.4) 09/01/17 04:50 Baso # 0.0 K/mm3 (0.0-0.1) 09/01/17 04:50 Add Manual Diff Complete 09/04/17 05:18 Total Counted 100 09/04/17 05:18 Seg Neutrophils % 75.9 % (40.0-70.0) H 09/01/17 04:50 Seg Neuts % (Manual) 47.0 % (40.0-70.0) 09/04/17 05:18 Band Neutrophils % 0 % 09/04/17 05:18 Lymphocytes % (Manual) 26.0 % (13.4-35.0) 09/04/17 05:18 Reactive Lymphs % (Man) 0 % 09/04/17 05:18 Monocytes % (Manual) 17.0 % (0.0-7.3) H 09/04/17 05:18 Eosinophils % (Manual) 8.0 % (0.0-4.3) H 09/04/17 05:18 Basophils % (Manual) 2.0 % (0.0-1.8) H 09/04/17 05:18 Metamyelocytes % 0 % 09/04/17 05:18 Myelocytes % 0 % 09/04/17 05:18 Promyelocytes % 0 % 09/04/17 05:18 Blast Cells % 0 % 09/04/17 05:18 Nucleated RBC % Not Reportable 09/04/17 05:18 Seg Neutrophils # 2.3 K/mm3 (1.8-7.7) 09/01/17 04:50 Seg Neutrophils # Man 0.9 K/mm3 (1.8-7.7) L 09/04/17 05:18 Band Neutrophils # 0.0 K/mm3 09/04/17 05:18 Lymphocytes # (Manual) 0.5 K/mm3 (1.2-5.4) L 09/04/17 05:18 Abs React Lymphs (Man) 0.0 K/mm3 09/04/17 05:18 Monocytes # (Manual) 0.3 K/mm3 (0.0-0.8) 09/04/17 05:18 Eosinophils # (Manual) 0.2 K/mm3 (0.0-0.4) 09/04/17 05:18 Basophils # (Manual) 0.0 K/mm3 (0.0-0.1) 09/04/17 05:18 Metamyelocytes # 0.0 K/mm3 09/04/17 05:18 Myelocytes # 0.0 K/mm3 09/04/17 05:18 Promyelocytes # 0.0 K/mm3 09/04/17 05:18 Blast Cells # 0.0 K/mm3 09/04/17 05:18 WBC Morphology Not Reportable 09/04/17 05:18 Hypersegmented Neuts Not Reportable 09/04/17 05:18 Hyposegmented Neuts Not Reportable 09/04/17 05:18 Hypogranular Neuts Not Reportable 09/04/17 05:18 Smudge Cells Not Reportable 09/04/17 05:18 Toxic Granulation Not Reportable 09/04/17 05:18 Toxic Vacuolation Not Reportable 09/04/17 05:18 Dohle Bodies Not Reportable 09/04/17 05:18 Pelger-Huet Anomaly Not Reportable 09/04/17 05:18 Chase Rods Not Reportable 09/04/17 05:18 Platelet Estimate Consistent w auto 09/04/17 05:18 Clumped Platelets Not Reportable 09/04/17 05:18 Plt Clumps, EDTA Not Reportable 09/04/17 05:18 Large Platelets Not Reportable 09/04/17 05:18 Giant Platelets Not Reportable 09/04/17 05:18 Platelet Satelliting Not Reportable 09/04/17 05:18 Plt Morphology Comment Not Reportable 09/04/17 05:18 RBC Morphology Not Reportable 09/04/17 05:18 Dimorphic RBCs Not Reportable 09/04/17 05:18 Polychromasia Rare 09/04/17 05:18 Hypochromasia Not Reportable 09/04/17 05:18 Poikilocytosis Not Reportable 09/04/17 05:18 Anisocytosis 1+ 09/04/17 05:18 Microcytosis Not Reportable 09/04/17 05:18 Macrocytosis Not Reportable 09/04/17 05:18 Spherocytes Not Reportable 09/04/17 05:18 Pappenheimer Bodies Not Reportable 09/04/17 05:18 Sickle Cells Not Reportable 09/04/17 05:18 Target Cells Not Reportable 09/04/17 05:18 Tear Drop Cells Not Reportable 09/04/17 05:18 Ovalocytes Not Reportable 09/04/17 05:18 Helmet Cells Not Reportable 09/04/17 05:18 [place]-Brainards Bodies Not Reportable 09/04/17 05:18 [place] Rings Not Reportable 09/04/17 05:18 [place] Cells Not Reportable 09/04/17 05:18 Bite Cells Not Reportable 09/04/17 05:18 Crenated Cell Not Reportable 09/04/17 05:18 Elliptocytes Not Reportable 09/04/17 05:18 Acanthocytes (Spur) Not Reportable 09/04/17 05:18 Rouleaux Not Reportable 09/04/17 05:18 Hemoglobin C Crystals Not Reportable 09/04/17 05:18 Schistocytes Not Reportable 09/04/17 05:18 Malaria parasites Not Reportable 09/04/17 05:18 Percent Retic 1.50 % (0.78-2.58) 09/02/17 11:22 [place]undo Bodies Not Reportable 09/04/17 05:18 Hem Pathologist Commnt No 09/04/17 05:18 PT 14.4 Sec. (12.2-14.9) 09/04/17 05:18 INR 1.06 (0.87-1.13) 09/04/17 05:18 APTT 34.2 Sec. (24.2-36.6) 08/31/17 21:07 D-Dimer 1484.20 ng/mlDDU (0-234) H 08/30/17 21:20 Heparin Anti-Xa Level 0.12 U.I./ml (0.3-0.7) L 09/01/17 11:31 Heparin Anti-Xa, Unfract Negative (Negative) 09/01/17 13:07 Sodium 136 mmol/L (137-145) L 09/04/17 05:18 Potassium 3.8 mmol/L (3.6-5.0) 09/04/17 05:18 Chloride 104.1 mmol/L (98-107) 09/04/17 05:18 Carbon Dioxide 22 mmol/L (22-30) 09/04/17 05:18 Anion Gap 14 mmol/L 09/04/17 05:18 BUN 6 mg/dL (9-20) L 09/04/17 05:18 Creatinine 1.0 mg/dL (0.8-1.5) 09/04/17 05:18 Estimated GFR > 60 ml/min 09/04/17 05:18 BUN/Creatinine Ratio 6 % 09/04/17 05:18 Glucose 87 mg/dL (75-100) 09/04/17 05:18 Lactic Acid 2.00 mmol/L (0.7-2.0) 08/30/17 20:20 Calcium 8.7 mg/dL (8.4-10.2) 09/04/17 05:18 Phosphorus 2.60 mg/dL (2.5-4.5) 09/01/17 04:50 Magnesium 1.60 mg/dL (1.7-2.3) L 09/04/17 05:18 Iron 93 ug/dL (49-181) 09/02/17 11:22 TIBC 179 mcg/dL (250-450) L 09/02/17 11:22 % Saturation 51.96 % 09/02/17 11:22 Transferrin 163 mg/dl (180-329) L 09/02/17 11:22 Ferritin 931.9 ng/mL (13.0-400.0) H 09/02/17 11:22 Total Bilirubin 1.10 mg/dL (0.1-1.2) 09/04/17 05:18 Direct Bilirubin 0.8 mg/dL (0-0.2) H 08/30/17 17:52 Indirect Bilirubin 1.5 mg/dL 08/30/17 17:52 AST 51 units/L (5-40) H 09/04/17 05:18 ALT 36 units/L (7-56) 09/04/17 05:18 Alkaline Phosphatase 91 units/L (35-129) 09/04/17 05:18 Total Creatine Kinase 92 units/L (55-170) 08/30/17 21:20 CK-MB (CK-2) 2.6 ng/mL (0.0-4.0) 08/30/17 21:20 CK-MB (CK-2) Rel Index 2.8 (0-4) 08/30/17 21:20 Troponin T < 0.010 ng/mL (0.00-0.029) 08/30/17 21:20 NT-Pro-B Natriuret Pep 1858 pg/mL (0-900) H 08/30/17 21:20 Total Protein 7.1 g/dL (6.3-8.2) 09/04/17 05:18 Albumin 2.7 g/dL (3.9-5) L 09/04/17 05:18 Albumin/Globulin Ratio 0.6 % 09/04/17 05:18 Lipase 27 units/L (13-60) 08/31/17 20:38 Vitamin B12 937.7 pg/mL (211-911) H 09/02/17 11:22 Folate 14.47 ng/mL (7.3-26.0) 09/02/17 11:22 TSH 0.531 mlU/mL (0.270-4.200) 08/30/17 21:20 Free T4 0.76 ng/dL (0.76-1.46) 08/30/17 17:52 Urine Color [place] (Yellow) 08/30/17 21:07 Urine Turbidity Clear (Clear) 08/30/17 21:07 Urine pH 5.0 (5.0-7.0) 08/30/17 21:07 Ur Specific [place] 1.013 (1.003-1.030) 08/30/17 21:07 Urine Protein 100 mg/dl mg/dL (Negative) 08/30/17 21:07 Urine Glucose (UA) Neg mg/dL (Negative) 08/30/17 21:07 Urine Ketones Neg mg/dL (Negative) 08/30/17 21:07 Urine Blood Lg (Negative) 08/30/17 21:07 Urine Nitrite Neg (Negative) 08/30/17 21:07 Urine Bilirubin Neg (Negative) 08/30/17 21:07 Urine Urobilinogen 2.0 mg/dL (<2.0) 08/30/17 21:07 Ur Leukocyte Esterase Lg (Negative) 08/30/17 21:07 Urine WBC (Auto) > 182.0 /HPF (0.0-6.0) H 08/30/17 21:07 Urine RBC (Auto) 18.0 /HPF (0.0-6.0) 08/30/17 21:07 U Epithel Cells (Auto) 5.0 /HPF (0-13.0) 08/30/17 21:07 Urine Bacteria (Auto) 2+ /HPF (Negative) 08/30/17 21:07 Urine Opiates Screen Presumptive negative 08/30/17 21:07 Urine Methadone Screen Presumptive negative 08/30/17 21:07 Ur Barbiturates Screen Presumptive negative 08/30/17 21:07 Ur Phencyclidine Scrn Presumptive negative 08/30/17 21:07 Ur Amphetamines Screen Presumptive negative 08/30/17 21:07 U Benzodiazepines Scrn Presumptive negative 08/30/17 21:07 Urine Cocaine Screen Presumptive negative 08/30/17 21:07 U Marijuana (THC) Screen Presumptive negative 08/30/17 21:07 Drugs of Abuse Note Disclamer 08/30/17 21:07 Plasma/Serum Alcohol < 0.01 gm% (0-0.07) 08/30/17 21:22 Heparin-induced Plt Ab Positive (Negative) H 09/01/17 13:07 UF Heparin High Dose 0 % Release 09/01/17 13:07 TINO UFH Low Dose 0.1 0 % Release 09/01/17 13:07 TINO UFH Low Dose 0.5 0 % Release 09/01/17 13:07 Hepatitis A IgM Ab Non-reactive (NonReactive) 08/31/17 03:42 Hep Bs Antigen Reactive (Negative) 08/31/17 03:42 Hep B Core IgM Ab Non-reactive (NonReactive) 08/31/17 03:42 Hepatitis C Antibody Non-reactive (NonReactive) 08/31/17 03:42 - Imaging and Cardiology CT scan - abdomen: image reviewed (ventral hernia)
[2017-09-05] MEDS ORDERED: NACL 0.9% 250ML 250 ML ONE (05:42)
[2017-09-05 05:43] LABS: Hematocrit 34.4 % (35.5-45.6); Hemoglobin 11.3 gm/dl (11.8-15.2); Mean Corpuscular HGB Conc 33 % (32-34); Mean Corpuscular Hemoglobin 32 pg (28-32); Mean Corpuscular Volume 96 fl (84-94); Platelet Count 102 K/mm3 (140-440); Red Blood Count 3.59 M/mm3 (3.65-5.03); Red Cell Distribution Width 13.6 % (13.2-15.2)
[2017-09-05 05:50] LABS: White Blood Count 2.2 K/mm3 (4.5-11.0)
[2017-09-05 05:53] LABS: INR 1.65 (0.87-1.13)
[2017-09-05] MEDS: FEOSOL PO SCH ×2 (05:55→11:35)
[2017-09-05] MEDS: LEVAQUIN PO SCH (05:55)
[2017-09-05] MEDS: KEPPRA PO SCH ×2 (05:55→11:36)
[2017-09-05] MEDS: FOLVITE 1 MG in NACL 0.9% 50 ML IV SCH (05:56)
[2017-09-05] MEDS: VITAMIN B-1 100 MG in NACL 0.9% 50 ML IV SCH (05:56)
[2017-09-05 05:58] LABS: Anion Gap 15 mmol/L; BUN/Creatinine Ratio 6; Blood Urea Nitrogen 6 mg/dL (9-20); Calcium 8.8 mg/dL (8.4-10.2); Carbon Dioxide 21 mmol/L (22-30); Chloride 104.6 mmol/L (98-107); Glucose 78 mg/dL (75-100); Potassium 3.9 mmol/L (3.6-5.0); Sodium 137 mmol/L (137-145)
[2017-09-05] MEDS ORDERED: NACL 0.9% 250ML 250 ML IV ONE (05:58)
[2017-09-05] MEDS: ZESTRIL PO SCH (11:18)
[2017-09-05] MEDS: ARIXTRA SUB-Q SCH (11:35)
[2017-09-05] MEDS: NON-FORMULARY (Elviteg/Cob/Emtri/Tenof Alafen [Genvoya Tablet] 1 EACH) PO SCH (11:35)
--- NOTE | 2017-09-05 12:47 | Progress Note ---
<EDDIE ELY - Last Filed: 09/05/17 12:50> Assessment and Plan Assessment and plan: Assessment: Patient is a 57 y/o male with PMH of seizures, HTN, HIV and alcohol abuse, admitted with seizure disorder due to non compliance with medications, and alcohol abuse and noted to have sepsis secondary to UTI, and Bilateral DVT. He was also noted to have alcoholic hepatitis. Patient reports no hx of IV drug use. Admits to drinking 1/2 a pint and a couple of beers daily. Patient seen and evaluated today, appears cachectic but no apparent distress noted. Is alert and oriented times 3-4. Pupils equal and reactive to light and accommodation. Neck is without jugular distension and adenopathy. Lungs clear to auscultation bilaterally. Noted with normal heart sounds, normal S1 S2. Was in afib with RVR but is currently Sinus bradycardia with heart rate in the 40's. Patient is asymptomatic. + 2 pedal pulses throughout. Abdomen is soft, non-tender and non-distended with positive bowel sounds throughout. Overall skin integrity intact. Plan: Acute on chronic systolic heart failure I/O, Daily weight, Echo. will monitor closely. 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 Elevated LFTs/Hepatitis B-STABLE GI evaluated. Hepatitis B. possible alcoholic hepatitis, but no indication for steroids at this time Follow with GI in 3-4 weeks. Diagnosis discussed with patient. Bilateral LE DVT Fondaparinux. Hematology eval. Warfarin started Educated on the importance of being compliant with medication regimen. IV Filter placed. Sepsis / UTI Cultures with no growth: Continue with Levaquin Antibiotic therapy PO Continue for 2 days the D/C due to ART Per hx, on antiretroviral but question on compliance. IVC abnormailty Noted during Filter placement. CT abdomen and pelvis with contrast negative for clot except ventral hernia. stop IV fluids Severe malnutrition with anorexia Sail Repair Person consulted EVELYN gentle hydration. ETOH abuse / tobacco use - cessation encouraged 15 mins spent. resources provided Assessment and plan: Acute on chronic systolic heart failure * I/O, Daily weight, Echo. will monitor closely. 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 Pt with current CHADS score of 1 and thus systemic anticoagulation in regards to paroxysmal atrial flutter is not indicated. 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 fondaparinux till warfarin therapeutic Pancytopenia with worsening leukocytopenia * Hemeonc input noted multilateral, likely secondary from HIV, Alcholoic hepatitis. Elevated LFTs/Hepatitis B-STABLE * GI evaluated. Hepatitis B. possible alcoholic hepatitis, but no indication for steroids at this time * Follow with GI in 3-4 weeks. * Diagnosis discussed with patient. Bilateral LE DVT * Fondaparinux. Hematology eval. Warfarin started * Compliance stressed. * IV Filter placed. Sepsis / UTI * Cultures with no growth, levaquin CHANGED TO PO X 3 DAY THEN STOP HIV * Per hx, on antiretroviral, ?compliance IVC abnormailty * Noted during Filter placement. CT abdomen and pelvis with contrast negative for clot except ventral hernia. * stop IV fluids Severe malnutrition with anorexia * Sail Repair Person consulted EVELYN * gentle hydration. ETOH abuse / tobacco use - cessation encouraged 15 mins spent. resources provided DVT/GI prophy Plan discussed with patient, vascular Dr Alexander and After School Program Coordinator DR Parekh. History Interval history: Patient is a 57 y/o male with PMH of seizures, HTN, HIV and alcohol abuse, admitted with seizure disorder due to non compliance with medications, and alcohol abuse and noted to have sepsis secondary to UTI, and Bilateral DVT. He was also noted to have alcoholic hepatitis. Patient reports no hx of IV drug use. Admits to drinking 1/2 a pint and a couple of beers daily. Patient stated has not take Antiretroviral medications in 3 weeks due to not having insurance. Hospitalist Physical - Constitutional Vitals: Temp Pulse Resp BP Pulse Ox 98.7 F 62 20 144/77 100 09/05/17 08:42 09/05/17 08:42 09/05/17 08:42 09/05/17 08:42 09/05/17 04:47 General appearance: Present: no acute distress, cachectic. Absent: mild distress, severe distress, well-nourished - EENT Eyes: Present: PERRL, EOM intact. Absent: irregular pupil ENT: hearing intact - Neck Neck: Present: supple, normal ROM. Absent: rigidity, enlarged thyroid, masses or JVD, cervical LAD - Respiratory Respiratory effort: normal Respiratory: bilateral: CTA (No Shortness of breathe, rale or rhonchi noted) - Cardiovascular Rhythm: regular (Sinus bradycardia noted on Telemetry) Heart Sounds: Present: S1 & S2 - Extremities Extremities: no ischemia, pulses intact, pulses symmetrical, No edema, normal temperature Peripheral Pulses: within normal limits - Abdominal General gastrointestinal: soft, non-tender, non-distended, normal bowel sounds - Integumentary Integumentary: Present: clear, warm, dry - Psychiatric Psychiatric: appropriate mood/affect Results - Labs CBC & Chem 7: 09/05/17 05:12 09/05/17 05:12 Labs: Laboratory Last Values WBC 2.2 K/mm3 (4.5-11.0) L 09/05/17 05:12 RBC 3.59 M/mm3 (3.65-5.03) L 09/05/17 05:12 Hgb 11.3 gm/dl (11.8-15.2) L 09/05/17 05:12 Hct 34.4 % (35.5-45.6) L 09/05/17 05:12 MCV 96 fl (84-94) H 09/05/17 05:12 MCH 32 pg (28-32) 09/05/17 05:12 MCHC 33 % (32-34) 09/05/17 05:12 RDW 13.6 % (13.2-15.2) 09/05/17 05:12 Plt Count 102 K/mm3 (140-440) L 09/05/17 05:12 Lymph % (Auto) 12.0 % (13.4-35.0) L 09/01/17 04:50 [place] % (Auto) Iap Displays Analyst 09/04/17 05:18 Eos % (Auto) 1.6 % (0.0-4.3) 09/01/17 04:50 Baso % (Auto) 1.0 % (0.0-1.8) 09/01/17 04:50 Lymph # 0.4 K/mm3 (1.2-5.4) L 09/01/17 04:50 [place] # 0.3 K/mm3 (0.0-0.8) 09/01/17 04:50 Eos # 0.0 K/mm3 (0.0-0.4) 09/01/17 04:50 Baso # 0.0 K/mm3 (0.0-0.1) 09/01/17 04:50 Add Manual Diff Complete 09/04/17 05:18 Total Counted 100 09/04/17 05:18 Seg Neutrophils % 75.9 % (40.0-70.0) H 09/01/17 04:50 Seg Neuts % (Manual) 47.0 % (40.0-70.0) 09/04/17 05:18 Band Neutrophils % 0 % 09/04/17 05:18 Lymphocytes % (Manual) 26.0 % (13.4-35.0) 09/04/17 05:18 Reactive Lymphs % (Man) 0 % 09/04/17 05:18 Monocytes % (Manual) 17.0 % (0.0-7.3) H 09/04/17 05:18 Eosinophils % (Manual) 8.0 % (0.0-4.3) H 09/04/17 05:18 Basophils % (Manual) 2.0 % (0.0-1.8) H 09/04/17 05:18 Metamyelocytes % 0 % 09/04/17 05:18 Myelocytes % 0 % 09/04/17 05:18 Promyelocytes % 0 % 09/04/17 05:18 Blast Cells % 0 % 09/04/17 05:18 Nucleated RBC % Not Reportable 09/04/17 05:18 Seg Neutrophils # 2.3 K/mm3 (1.8-7.7) 09/01/17 04:50 Seg Neutrophils # Man 0.9 K/mm3 (1.8-7.7) L 09/04/17 05:18 Band Neutrophils # 0.0 K/mm3 09/04/17 05:18 Lymphocytes # (Manual) 0.5 K/mm3 (1.2-5.4) L 09/04/17 05:18 Abs React Lymphs (Man) 0.0 K/mm3 09/04/17 05:18 Monocytes # (Manual) 0.3 K/mm3 (0.0-0.8) 09/04/17 05:18 Eosinophils # (Manual) 0.2 K/mm3 (0.0-0.4) 09/04/17 05:18 Basophils # (Manual) 0.0 K/mm3 (0.0-0.1) 09/04/17 05:18 Metamyelocytes # 0.0 K/mm3 09/04/17 05:18 Myelocytes # 0.0 K/mm3 09/04/17 05:18 Promyelocytes # 0.0 K/mm3 09/04/17 05:18 Blast Cells # 0.0 K/mm3 09/04/17 05:18 WBC Morphology Not Reportable 09/04/17 05:18 Hypersegmented Neuts Not Reportable 09/04/17 05:18 Hyposegmented Neuts Not Reportable 09/04/17 05:18 Hypogranular Neuts Not Reportable 09/04/17 05:18 Smudge Cells Not Reportable 09/04/17 05:18 Toxic Granulation Not Reportable 09/04/17 05:18 Toxic Vacuolation Not Reportable 09/04/17 05:18 Dohle Bodies Not Reportable 09/04/17 05:18 Pelger-Huet Anomaly Not Reportable 09/04/17 05:18 Chase Rods Not Reportable 09/04/17 05:18 Platelet Estimate Consistent w auto 09/04/17 05:18 Clumped Platelets Not Reportable 09/04/17 05:18 Plt Clumps, EDTA Not Reportable 09/04/17 05:18 Large Platelets Not Reportable 09/04/17 05:18 Giant Platelets Not Reportable 09/04/17 05:18 Platelet Satelliting Not Reportable 09/04/17 05:18 Plt Morphology Comment Not Reportable 09/04/17 05:18 RBC Morphology Not Reportable 09/04/17 05:18 Dimorphic RBCs Not Reportable 09/04/17 05:18 Polychromasia Rare 09/04/17 05:18 Hypochromasia Not Reportable 09/04/17 05:18 Poikilocytosis Not Reportable 09/04/17 05:18 Anisocytosis 1+ 09/04/17 05:18 Microcytosis Not Reportable 09/04/17 05:18 Macrocytosis Not Reportable 09/04/17 05:18 Spherocytes Not Reportable 09/04/17 05:18 Pappenheimer Bodies Not Reportable 09/04/17 05:18 Sickle Cells Not Reportable 09/04/17 05:18 Target Cells Not Reportable 09/04/17 05:18 Tear Drop Cells Not Reportable 09/04/17 05:18 Ovalocytes Not Reportable 09/04/17 05:18 Helmet Cells Not Reportable 09/04/17 05:18 [place] Bodies Not Reportable 09/04/17 05:18 [place] Rings Not Reportable 09/04/17 05:18 [place] Cells Not Reportable 09/04/17 05:18 Bite Cells Not Reportable 09/04/17 05:18 Crenated Cell Not Reportable 09/04/17 05:18 Elliptocytes Not Reportable 09/04/17 05:18 Acanthocytes (Spur) Not Reportable 09/04/17 05:18 Rouleaux Not Reportable 09/04/17 05:18 Hemoglobin C Crystals Not Reportable 09/04/17 05:18 Schistocytes Not Reportable 09/04/17 05:18 Malaria parasites Not Reportable 09/04/17 05:18 Percent Retic 1.50 % (0.78-2.58) 09/02/17 11:22 Facundo Bodies Not Reportable 09/04/17 05:18 Hem Pathologist Commnt No 09/04/17 05:18 PT 20.5 Sec. (12.2-14.9) H 09/05/17 05:12 INR 1.65 (0.87-1.13) H 09/05/17 05:12 APTT 34.2 Sec. (24.2-36.6) 08/31/17 21:07 D-Dimer 1484.20 ng/mlDDU (0-234) H 08/30/17 21:20 Heparin Anti-Xa Level 0.12 U.I./ml (0.3-0.7) L 09/01/17 11:31 Heparin Anti-Xa, Unfract Negative (Negative) 09/01/17 13:07 Sodium 137 mmol/L (137-145) 09/05/17 05:12 Potassium 3.9 mmol/L (3.6-5.0) 09/05/17 05:12 Chloride 104.6 mmol/L (98-107) 09/05/17 05:12 Carbon Dioxide 21 mmol/L (22-30) L 09/05/17 05:12 Anion Gap 15 mmol/L 09/05/17 05:12 BUN 6 mg/dL (9-20) L 09/05/17 05:12 Creatinine 1.0 mg/dL (0.8-1.5) 09/05/17 05:12 Estimated GFR > 60 ml/min 09/05/17 05:12 BUN/Creatinine Ratio 6 % 09/05/17 05:12 Glucose 78 mg/dL (75-100) 09/05/17 05:12 Lactic Acid 2.00 mmol/L (0.7-2.0) 08/30/17 20:20 Calcium 8.8 mg/dL (8.4-10.2) 09/05/17 05:12 Phosphorus 2.60 mg/dL (2.5-4.5) 09/01/17 04:50 Magnesium 1.60 mg/dL (1.7-2.3) L 09/04/17 05:18 Iron 93 ug/dL (49-181) 09/02/17 11:22 TIBC 179 mcg/dL (250-450) L 09/02/17 11:22 % Saturation 51.96 % 09/02/17 11:22 Transferrin 163 mg/dl (180-329) L 09/02/17 11:22 Ferritin 931.9 ng/mL (13.0-400.0) H 09/02/17 11:22 Total Bilirubin 1.10 mg/dL (0.1-1.2) 09/04/17 05:18 Direct Bilirubin 0.8 mg/dL (0-0.2) H 08/30/17 17:52 Indirect Bilirubin 1.5 mg/dL 08/30/17 17:52 AST 51 units/L (5-40) H 09/04/17 05:18 ALT 36 units/L (7-56) 09/04/17 05:18 Alkaline Phosphatase 91 units/L (35-129) 09/04/17 05:18 Total Creatine Kinase 92 units/L (55-170) 08/30/17 21:20 CK-MB (CK-2) 2.6 ng/mL (0.0-4.0) 08/30/17 21:20 CK-MB (CK-2) Rel Index 2.8 (0-4) 08/30/17 21:20 Troponin T < 0.010 ng/mL (0.00-0.029) 08/30/17 21:20 NT-Pro-B Natriuret Pep 1858 pg/mL (0-900) H 08/30/17 21:20 Total Protein 7.1 g/dL (6.3-8.2) 09/04/17 05:18 Albumin 2.7 g/dL (3.9-5) L 09/04/17 05:18 Albumin/Globulin Ratio 0.6 % 09/04/17 05:18 Lipase 27 units/L (13-60) 08/31/17 20:38 Vitamin B12 937.7 pg/mL (211-911) H 09/02/17 11:22 Folate 14.47 ng/mL (7.3-26.0) 09/02/17 11:22 TSH 0.531 mlU/mL (0.270-4.200) 08/30/17 21:20 Free T4 0.76 ng/dL (0.76-1.46) 08/30/17 17:52 Urine Color [place] (Yellow) 08/30/17 21:07 Urine Turbidity Clear (Clear) 08/30/17 21:07 Urine pH 5.0 (5.0-7.0) 08/30/17 21:07 Ur Specific [place] 1.013 (1.003-1.030) 08/30/17 21:07 Urine Protein 100 mg/dl mg/dL (Negative) 08/30/17 21:07 Urine Glucose (UA) Neg mg/dL (Negative) 08/30/17 21:07 Urine Ketones Neg mg/dL (Negative) 08/30/17 21:07 Urine Blood Lg (Negative) 08/30/17 21:07 Urine Nitrite Neg (Negative) 08/30/17 21:07 Urine Bilirubin Neg (Negative) 08/30/17 21:07 Urine Urobilinogen 2.0 mg/dL (<2.0) 08/30/17 21:07 Ur Leukocyte Esterase Lg (Negative) 08/30/17 21:07 Urine WBC (Auto) > 182.0 /HPF (0.0-6.0) H 08/30/17 21:07 Urine RBC (Auto) 18.0 /HPF (0.0-6.0) 08/30/17 21:07 U Epithel Cells (Auto) 5.0 /HPF (0-13.0) 08/30/17 21:07 Urine Bacteria (Auto) 2+ /HPF (Negative) 08/30/17 21:07 Urine Opiates Screen Presumptive negative 08/30/17 21:07 Urine Methadone Screen Presumptive negative 08/30/17 21:07 Ur Barbiturates Screen Presumptive negative 08/30/17 21:07 Ur Phencyclidine Scrn Presumptive negative 08/30/17 21:07 Ur Amphetamines Screen Presumptive negative 08/30/17 21:07 U Benzodiazepines Scrn Presumptive negative 08/30/17 21:07 Urine Cocaine Screen Presumptive negative 08/30/17 21:07 U Marijuana (THC) Screen Presumptive negative 08/30/17 21:07 Drugs of Abuse Note Disclamer 08/30/17 21:07 Plasma/Serum Alcohol < 0.01 gm% (0-0.07) 08/30/17 21:22 Heparin-induced Plt Ab Positive (Negative) H 09/01/17 13:07 UF Heparin High Dose 0 % Release 09/01/17 13:07 TINO UFH Low Dose 0.1 0 % Release 09/01/17 13:07 TINO UFH Low Dose 0.5 0 % Release 09/01/17 13:07 Hepatitis A IgM Ab Non-reactive (NonReactive) 08/31/17 03:42 Hep Bs Antigen Reactive (Negative) 08/31/17 03:42 Hep B Core IgM Ab Non-reactive (NonReactive) 08/31/17 03:42 Hepatitis C Antibody Non-reactive (NonReactive) 08/31/17 03:42 <LEIGH BALLARD - Last Filed: 09/05/17 15:32> Assessment and Plan Assessment and plan: I saw and evaluated the patient. I agree with the findings and the plan of care as documented in the Nurse Practitioner's~note, with the following corrections and additions. FOLLOW BONE MARROW BIOSPY CAN DISCHARGE ONCE INR THERAPEUTIC Hospitalist Physical - Constitutional Vitals: Temp Pulse Resp BP Pulse Ox 97.9 F 64 18 154/96 99 09/05/17 12:34 09/05/17 12:34 09/05/17 12:34 09/05/17 12:34 09/05/17 12:34 General appearance: Present: no acute distress - EENT Eyes: Present: PERRL ENT: clear oral mucosa, dentition normal - Neck Neck: Present: supple, normal ROM - Respiratory Respiratory: bilateral: CTA - Cardiovascular Rhythm: regular Heart Sounds: Present: S1 & S2 - Extremities Extremities: no ischemia, pulses intact Peripheral Pulses: within normal limits - Abdominal General gastrointestinal: soft, non-tender, non-distended, normal bowel sounds - Integumentary Integumentary: Present: clear, warm - Psychiatric Psychiatric: appropriate mood/affect, cooperative Results - Labs CBC & Chem 7: 09/05/17 05:12 09/05/17 05:12 Labs: Laboratory Last Values WBC 2.2 K/mm3 (4.5-11.0) L 09/05/17 05:12 RBC 3.59 M/mm3 (3.65-5.03) L 09/05/17 05:12 Hgb 11.3 gm/dl (11.8-15.2) L 09/05/17 05:12 Hct 34.4 % (35.5-45.6) L 09/05/17 05:12 MCV 96 fl (84-94) H 09/05/17 05:12 MCH 32 pg (28-32) 09/05/17 05:12 MCHC 33 % (32-34) 09/05/17 05:12 RDW 13.6 % (13.2-15.2) 09/05/17 05:12 Plt Count 102 K/mm3 (140-440) L 09/05/17 05:12 Lymph % (Auto) 12.0 % (13.4-35.0) L 09/01/17 04:50 [place] % (Auto) Iap Displays Analyst 09/04/17 05:18 Eos % (Auto) 1.6 % (0.0-4.3) 09/01/17 04:50 Baso % (Auto) 1.0 % (0.0-1.8) 09/01/17 04:50 Lymph # 0.4 K/mm3 (1.2-5.4) L 09/01/17 04:50 [place] # 0.3 K/mm3 (0.0-0.8) 09/01/17 04:50 Eos # 0.0 K/mm3 (0.0-0.4) 09/01/17 04:50 Baso # 0.0 K/mm3 (0.0-0.1) 09/01/17 04:50 Add Manual Diff Complete 09/04/17 05:18 Total Counted 100 09/04/17 05:18 Seg Neutrophils % 75.9 % (40.0-70.0) H 09/01/17 04:50 Seg Neuts % (Manual) 47.0 % (40.0-70.0) 09/04/17 05:18 Band Neutrophils % 0 % 09/04/17 05:18 Lymphocytes % (Manual) 26.0 % (13.4-35.0) 09/04/17 05:18 Reactive Lymphs % (Man) 0 % 09/04/17 05:18 Monocytes % (Manual) 17.0 % (0.0-7.3) H 09/04/17 05:18 Eosinophils % (Manual) 8.0 % (0.0-4.3) H 09/04/17 05:18 Basophils % (Manual) 2.0 % (0.0-1.8) H 09/04/17 05:18 Metamyelocytes % 0 % 09/04/17 05:18 Myelocytes % 0 % 09/04/17 05:18 Promyelocytes % 0 % 09/04/17 05:18 Blast Cells % 0 % 09/04/17 05:18 Nucleated RBC % Not Reportable 09/04/17 05:18 Seg Neutrophils # 2.3 K/mm3 (1.8-7.7) 09/01/17 04:50 Seg Neutrophils # Man 0.9 K/mm3 (1.8-7.7) L 09/04/17 05:18 Band Neutrophils # 0.0 K/mm3 09/04/17 05:18 Lymphocytes # (Manual) 0.5 K/mm3 (1.2-5.4) L 09/04/17 05:18 Abs React Lymphs (Man) 0.0 K/mm3 09/04/17 05:18 Monocytes # (Manual) 0.3 K/mm3 (0.0-0.8) 09/04/17 05:18 Eosinophils # (Manual) 0.2 K/mm3 (0.0-0.4) 09/04/17 05:18 Basophils # (Manual) 0.0 K/mm3 (0.0-0.1) 09/04/17 05:18 Metamyelocytes # 0.0 K/mm3 09/04/17 05:18 Myelocytes # 0.0 K/mm3 09/04/17 05:18 Promyelocytes # 0.0 K/mm3 09/04/17 05:18 Blast Cells # 0.0 K/mm3 09/04/17 05:18 WBC Morphology Not Reportable 09/04/17 05:18 Hypersegmented Neuts Not Reportable 09/04/17 05:18 Hyposegmented Neuts Not Reportable 09/04/17 05:18 Hypogranular Neuts Not Reportable 09/04/17 05:18 Smudge Cells Not Reportable 09/04/17 05:18 Toxic Granulation Not Reportable 09/04/17 05:18 Toxic Vacuolation Not Reportable 09/04/17 05:18 Dohle Bodies Not Reportable 09/04/17 05:18 Pelger-Huet Anomaly Not Reportable 09/04/17 05:18 Chase Rods Not Reportable 09/04/17 05:18 Platelet Estimate Consistent w auto 09/04/17 05:18 Clumped Platelets Not Reportable 09/04/17 05:18 Plt Clumps, EDTA Not Reportable 09/04/17 05:18 Large Platelets Not Reportable 09/04/17 05:18 Giant Platelets Not Reportable 09/04/17 05:18 Platelet Satelliting Not Reportable 09/04/17 05:18 Plt Morphology Comment Not Reportable 09/04/17 05:18 RBC Morphology Not Reportable 09/04/17 05:18 Dimorphic RBCs Not Reportable 09/04/17 05:18 Polychromasia Rare 09/04/17 05:18 Hypochromasia Not Reportable 09/04/17 05:18 Poikilocytosis Not Reportable 09/04/17 05:18 Anisocytosis 1+ 09/04/17 05:18 Microcytosis Not Reportable 09/04/17 05:18 Macrocytosis Not Reportable 09/04/17 05:18 Spherocytes Not Reportable 09/04/17 05:18 Pappenheimer Bodies Not Reportable 09/04/17 05:18 Sickle Cells Not Reportable 09/04/17 05:18 Target Cells Not Reportable 09/04/17 05:18 Tear Drop Cells Not Reportable 09/04/17 05:18 Ovalocytes Not Reportable 09/04/17 05:18 Helmet Cells Not Reportable 09/04/17 05:18 [place] Bodies Not Reportable 09/04/17 05:18 [place] Rings Not Reportable 09/04/17 05:18 [place] Cells Not Reportable 09/04/17 05:18 Bite Cells Not Reportable 09/04/17 05:18 Crenated Cell Not Reportable 09/04/17 05:18 Elliptocytes Not Reportable 09/04/17 05:18 Acanthocytes (Spur) Not Reportable 09/04/17 05:18 Rouleaux Not Reportable 09/04/17 05:18 Hemoglobin C Crystals Not Reportable 09/04/17 05:18 Schistocytes Not Reportable 09/04/17 05:18 Malaria parasites Not Reportable 09/04/17 05:18 Percent Retic 1.50 % (0.78-2.58) 09/02/17 11:22 [place]undo Bodies Not Reportable 09/04/17 05:18 Hem Pathologist Commnt No 09/04/17 05:18 PT 20.5 Sec. (12.2-14.9) H 09/05/17 05:12 INR 1.65 (0.87-1.13) H 09/05/17 05:12 APTT 34.2 Sec. (24.2-36.6) 08/31/17 21:07 D-Dimer 1484.20 ng/mlDDU (0-234) H 08/30/17 21:20 Heparin Anti-Xa Level 0.12 U.I./ml (0.3-0.7) L 09/01/17 11:31 Heparin Anti-Xa, Unfract Negative (Negative) 09/01/17 13:07 Sodium 137 mmol/L (137-145) 09/05/17 05:12 Potassium 3.9 mmol/L (3.6-5.0) 09/05/17 05:12 Chloride 104.6 mmol/L (98-107) 09/05/17 05:12 Carbon Dioxide 21 mmol/L (22-30) L 09/05/17 05:12 Anion Gap 15 mmol/L 09/05/17 05:12 BUN 6 mg/dL (9-20) L 09/05/17 05:12 Creatinine 1.0 mg/dL (0.8-1.5) 09/05/17 05:12 Estimated GFR > 60 ml/min 09/05/17 05:12 BUN/Creatinine Ratio 6 % 09/05/17 05:12 Glucose 78 mg/dL (75-100) 09/05/17 05:12 Lactic Acid 2.00 mmol/L (0.7-2.0) 08/30/17 20:20 Calcium 8.8 mg/dL (8.4-10.2) 09/05/17 05:12 Phosphorus 2.60 mg/dL (2.5-4.5) 09/01/17 04:50 Magnesium 1.60 mg/dL (1.7-2.3) L 09/04/17 05:18 Iron 93 ug/dL (49-181) 09/02/17 11:22 TIBC 179 mcg/dL (250-450) L 09/02/17 11:22 % Saturation 51.96 % 09/02/17 11:22 Transferrin 163 mg/dl (180-329) L 09/02/17 11:22 Ferritin 931.9 ng/mL (13.0-400.0) H 09/02/17 11:22 Total Bilirubin 1.10 mg/dL (0.1-1.2) 09/04/17 05:18 Direct Bilirubin 0.8 mg/dL (0-0.2) H 08/30/17 17:52 Indirect Bilirubin 1.5 mg/dL 08/30/17 17:52 AST 51 units/L (5-40) H 09/04/17 05:18 ALT 36 units/L (7-56) 09/04/17 05:18 Alkaline Phosphatase 91 units/L (35-129) 09/04/17 05:18 Total Creatine Kinase 92 units/L (55-170) 08/30/17 21:20 CK-MB (CK-2) 2.6 ng/mL (0.0-4.0) 08/30/17 21:20 CK-MB (CK-2) Rel Index 2.8 (0-4) 08/30/17 21:20 Troponin T < 0.010 ng/mL (0.00-0.029) 08/30/17 21:20 NT-Pro-B Natriuret Pep 1858 pg/mL (0-900) H 08/30/17 21:20 Total Protein 7.1 g/dL (6.3-8.2) 09/04/17 05:18 Albumin 2.7 g/dL (3.9-5) L 09/04/17 05:18 Albumin/Globulin Ratio 0.6 % 09/04/17 05:18 Lipase 27 units/L (13-60) 08/31/17 20:38 Vitamin B12 937.7 pg/mL (211-911) H 09/02/17 11:22 Folate 14.47 ng/mL (7.3-26.0) 09/02/17 11:22 TSH 0.531 mlU/mL (0.270-4.200) 08/30/17 21:20 Free T4 0.76 ng/dL (0.76-1.46) 08/30/17 17:52 Urine Color [place] (Yellow) 08/30/17 21:07 Urine Turbidity Clear (Clear) 08/30/17 21:07 Urine pH 5.0 (5.0-7.0) 08/30/17 21:07 Ur Specific [place] 1.013 (1.003-1.030) 08/30/17 21:07 Urine Protein 100 mg/dl mg/dL (Negative) 08/30/17 21:07 Urine Glucose (UA) Neg mg/dL (Negative) 08/30/17 21:07 Urine Ketones Neg mg/dL (Negative) 08/30/17 21:07 Urine Blood Lg (Negative) 08/30/17 21:07 Urine Nitrite Neg (Negative) 08/30/17 21:07 Urine Bilirubin Neg (Negative) 08/30/17 21:07 Urine Urobilinogen 2.0 mg/dL (<2.0) 08/30/17 21:07 Ur Leukocyte Esterase Lg (Negative) 08/30/17 21:07 Urine WBC (Auto) > 182.0 /HPF (0.0-6.0) H 08/30/17 21:07 Urine RBC (Auto) 18.0 /HPF (0.0-6.0) 08/30/17 21:07 U Epithel Cells (Auto) 5.0 /HPF (0-13.0) 08/30/17 21:07 Urine Bacteria (Auto) 2+ /HPF (Negative) 08/30/17 21:07 Urine Opiates Screen Presumptive negative 08/30/17 21:07 Urine Methadone Screen Presumptive negative 08/30/17 21:07 Ur Barbiturates Screen Presumptive negative 08/30/17 21:07 Ur Phencyclidine Scrn Presumptive negative 08/30/17 21:07 Ur Amphetamines Screen Presumptive negative 08/30/17 21:07 U Benzodiazepines Scrn Presumptive negative 08/30/17 21:07 Urine Cocaine Screen Presumptive negative 08/30/17 21:07 U Marijuana (THC) Screen Presumptive negative 08/30/17 21:07 Drugs of Abuse Note Disclamer 08/30/17 21:07 Plasma/Serum Alcohol < 0.01 gm% (0-0.07) 08/30/17 21:22 Heparin-induced Plt Ab Positive (Negative) H 09/01/17 13:07 UF Heparin High Dose 0 % Release 09/01/17 13:07 TINO UFH Low Dose 0.1 0 % Release 09/01/17 13:07 TINO UFH Low Dose 0.5 0 % Release 09/01/17 13:07 Hepatitis A IgM Ab Non-reactive (NonReactive) 08/31/17 03:42 Hep Bs Antigen Reactive (Negative) 08/31/17 03:42 Hep B Core IgM Ab Non-reactive (NonReactive) 08/31/17 03:42 Hepatitis C Antibody Non-reactive (NonReactive) 08/31/17 03:42
--- NOTE | 2017-09-05 14:07 | Consultation ---
History of Present Illness Consult date: 09/05/17 History of present illness: from the history the seizures are chronic and usually controlled with keppra,,, , however he had stopped that medication w/o taper see old record Past History Past Medical History: hypertension, seizures, other (AIDS, right AC joint seperation) Past Surgical History: bowel surgery ("ulcer removal") Social history: lives with family, smoking, alcohol abuse Family history: hypertension Medications and Allergies Allergies Allergy/AdvReac Type Severity Reaction Status Date / Time No Known Allergies Allergy Unverified 08/09/16 15:58 Home Medications Medication Instructions Recorded Confirmed Last Taken Type Azithromycin 1,200 mg PO QWEEK 08/30/17 08/30/17 Unknown History Carvedilol [Coreg] 6.25 mg PO BID 08/30/17 08/30/17 Unknown History Elviteg/Cob/Emtri/Tenof Alafen 1 each PO QDAY 08/30/17 08/30/17 Unknown History [Genvoya Tablet] Ferrous Sulfate [Feosol] 325 mg PO BID 08/30/17 08/30/17 Unknown History levETIRAcetam [Keppra TAB] 750 mg PO BID 08/30/17 08/30/17 Unknown History Active Meds: Active Medications Acetaminophen (Tylenol) 650 mg PO Q4H PRN PRN Reason: For Pain/Fever/Headache Ferrous Sulfate (Feosol) 325 mg PO BID [facility] Last Admin: 09/05/17 11:35 Dose: 325 mg Folic Acid (Folvite) 1 mg PO DAILY [facility] Fondaparinux (Arixtra) 2.5 mg SUB-Q QDAY [facility] Last Admin: 09/05/17 11:35 Dose: 2.5 mg Levetiracetam (Keppra) 750 mg PO BID [facility] Last Admin: 09/05/17 11:36 Dose: 750 mg Levofloxacin (Levaquin) 750 mg PO Q24H [facility] Last Admin: 09/05/17 05:55 Dose: 750 mg Lisinopril (Zestril) 40 mg PO QDAY [facility] Last Admin: 09/04/17 14:34 Dose: 40 mg Lorazepam (Ativan) 1 mg IV Q2H PRN PRN Reason: Seizures Last Admin: 08/31/17 05:28 Dose: 1 mg Metoclopramide HCl (Reglan) 10 mg IV Q6H PRN PRN Reason: Nausea And Vomiting Metoprolol Tartrate (Lopressor) 50 mg PO BID [facility] Miscellaneous Medication (Elviteg/Cob/Emtri/Tenof Alafen [Genvoya Tablet]) 1 each PO QDAY [facility] Last Admin: 09/05/17 11:35 Dose: 1 each Morphine Sulfate (Morphine) 2 mg IV Q4H PRN PRN Reason: Pain, Moderate (4-6) Ondansetron HCl (Zofran) 4 mg IV Q8H PRN PRN Reason: Nausea And Vomiting Thiamine HCl (Vitamin B-1) 100 mg PO QDAY [facility] Warfarin Sodium (Coumadin Pharmacy To Dose) 1 each PO PKCONSULT [facility] PRN Reason: Protocol Warfarin Sodium (Coumadin) 7.5 mg PO DAILY@1700 [facility] Last Admin: 09/04/17 16:55 Dose: 7.5 mg Physical Examination - Vital Signs Vital Signs: Vital Signs Resp 08/30/17 17:24 Results - Laboratory Findings CBC and BMP: 09/05/17 05:12 09/05/17 05:12 Abnormal Lab Findings: Abnormal Labs 08/30/17 08/30/17 08/30/17 17:52 17:52 17:52 WBC RBC Hgb Hct MCV 95 H MCH MCHC Plt Count 136 L Lymph % (Auto) 6.9 L [place] % (Auto) Lymph # 0.4 L Seg Neutrophils % 88.3 H Seg Neuts % (Manual) Lymphocytes % (Manual) Monocytes % (Manual) Eosinophils % (Manual) Basophils % (Manual) Seg Neutrophils # Man Lymphocytes # (Manual) PT INR D-Dimer Heparin Anti-Xa Level Sodium 136 L Potassium Chloride 94.1 L Carbon Dioxide 21 L BUN Creatinine Glucose 131 H Lactic Acid 6.60 H* Magnesium TIBC Transferrin Ferritin Total Bilirubin Direct Bilirubin AST ALT Alkaline Phosphatase NT-Pro-B Natriuret Pep Total Protein Albumin Vitamin B12 Urine WBC (Auto) Heparin-induced Plt Ab 08/30/17 08/30/17 08/30/17 17:52 21:07 21:20 WBC RBC Hgb Hct MCV MCH MCHC Plt Count Lymph % (Auto) [place] % (Auto) Lymph # Seg Neutrophils % Seg Neuts % (Manual) Lymphocytes % (Manual) Monocytes % (Manual) Eosinophils % (Manual) Basophils % (Manual) Seg Neutrophils # Man Lymphocytes # (Manual) PT INR D-Dimer 1484.20 H Heparin Anti-Xa Level Sodium Potassium Chloride Carbon Dioxide BUN Creatinine Glucose Lactic Acid Magnesium TIBC Transferrin Ferritin Total Bilirubin 2.30 H Direct Bilirubin 0.8 H AST 143 H ALT 82 H Alkaline Phosphatase 191 H NT-Pro-B Natriuret Pep Total Protein 9.0 H Albumin 3.8 L Vitamin B12 Urine WBC (Auto) > 182.0 H Heparin-induced Plt Ab 08/30/17 08/31/17 08/31/17 21:20 20:38 21:07 WBC RBC Hgb Hct MCV MCH MCHC Plt Count 93 L Lymph % (Auto) [place] % (Auto) Lymph # Seg Neutrophils % Seg Neuts % (Manual) Lymphocytes % (Manual) Monocytes % (Manual) Eosinophils % (Manual) Basophils % (Manual) Seg Neutrophils # Man Lymphocytes # (Manual) PT 15.1 H INR D-Dimer Heparin Anti-Xa Level Sodium Potassium Chloride Carbon Dioxide BUN Creatinine Glucose Lactic Acid Magnesium TIBC Transferrin Ferritin Total Bilirubin Direct Bilirubin AST ALT Alkaline Phosphatase NT-Pro-B Natriuret Pep 1858 H Total Protein Albumin Vitamin B12 Urine WBC (Auto) Heparin-induced Plt Ab 09/01/17 09/01/17 09/01/17 04:50 04:50 04:50 WBC 3.0 L RBC 3.38 L Hgb 11.2 L Hct 32.2 L MCV 95 H MCH 33 H MCHC 35 H Plt Count 80 L Lymph % (Auto) 12.0 L [place] % (Auto) 9.5 H Lymph # 0.4 L Seg Neutrophils % 75.9 H Seg Neuts % (Manual) Lymphocytes % (Manual) Monocytes % (Manual) Eosinophils % (Manual) Basophils % (Manual) Seg Neutrophils # Man Lymphocytes # (Manual) PT INR D-Dimer Heparin Anti-Xa Level 0.20 L Sodium Potassium Chloride Carbon Dioxide 20 L BUN Creatinine 1.6 H Glucose Lactic Acid Magnesium 1.30 L TIBC Transferrin Ferritin Total Bilirubin 2.40 H Direct Bilirubin AST 86 H ALT Alkaline Phosphatase NT-Pro-B Natriuret Pep Total Protein Albumin 2.8 L Vitamin B12 Urine WBC (Auto) Heparin-induced Plt Ab 09/01/17 09/01/17 09/02/17 11:31 13:07 04:00 WBC 1.8 L* RBC 3.39 L Hgb 11.1 L Hct 32.5 L MCV 96 H MCH 33 H MCHC Plt Count 91 L Lymph % (Auto) [place] % (Auto) Lymph # Seg Neutrophils % Seg Neuts % (Manual) Lymphocytes % (Manual) Monocytes % (Manual) 8.0 H Eosinophils % (Manual) 7.0 H Basophils % (Manual) Seg Neutrophils # Man 1.2 L Lymphocytes # (Manual) 0.4 L PT INR D-Dimer Heparin Anti-Xa Level 0.12 L Sodium Potassium Chloride Carbon Dioxide BUN Creatinine Glucose Lactic Acid Magnesium TIBC Transferrin Ferritin Total Bilirubin Direct Bilirubin AST ALT Alkaline Phosphatase NT-Pro-B Natriuret Pep Total Protein Albumin Vitamin B12 Urine WBC (Auto) Heparin-induced Plt Ab Positive H 09/02/17 09/02/17 09/02/17 04:00 11:22 11:22 WBC RBC Hgb Hct MCV MCH MCHC Plt Count Lymph % (Auto) [place] % (Auto) Lymph # Seg Neutrophils % Seg Neuts % (Manual) Lymphocytes % (Manual) Monocytes % (Manual) Eosinophils % (Manual) Basophils % (Manual) Seg Neutrophils # Man Lymphocytes # (Manual) PT INR D-Dimer Heparin Anti-Xa Level Sodium Potassium 3.3 L Chloride Carbon Dioxide BUN Creatinine Glucose Lactic Acid Magnesium TIBC 179 L Transferrin 163 L Ferritin Total Bilirubin 1.40 H Direct Bilirubin AST 86 H ALT Alkaline Phosphatase NT-Pro-B Natriuret Pep Total Protein Albumin 3.0 L Vitamin B12 937.7 H Urine WBC (Auto) Heparin-induced Plt Ab 09/02/17 09/03/17 09/03/17 11:22 05:47 05:47 WBC 1.5 L* RBC 3.21 L Hgb 10.5 L Hct 30.8 L MCV 96 H MCH 33 H MCHC Plt Count 86 L Lymph % (Auto) [place] % (Auto) Lymph # Seg Neutrophils % Seg Neuts % (Manual) 72.0 H Lymphocytes % (Manual) 12.0 L Monocytes % (Manual) Eosinophils % (Manual) 16.0 H Basophils % (Manual) Seg Neutrophils # Man 1.1 L Lymphocytes # (Manual) 0.2 L PT INR D-Dimer Heparin Anti-Xa Level Sodium Potassium 3.3 L Chloride Carbon Dioxide 21 L BUN 8 L Creatinine Glucose Lactic Acid Magnesium 1.50 L TIBC Transferrin Ferritin 931.9 H Total Bilirubin Direct Bilirubin AST 72 H ALT Alkaline Phosphatase NT-Pro-B Natriuret Pep Total Protein Albumin 2.7 L Vitamin B12 Urine WBC (Auto) Heparin-induced Plt Ab 09/04/17 09/04/17 09/05/17 05:18 05:18 05:12 WBC 2.0 L RBC 3.51 L Hgb 11.3 L Hct 33.7 L MCV 96 H MCH MCHC Plt Count 93 L Lymph % (Auto) [place] % (Auto) Lymph # Seg Neutrophils % Seg Neuts % (Manual) Lymphocytes % (Manual) Monocytes % (Manual) 17.0 H Eosinophils % (Manual) 8.0 H Basophils % (Manual) 2.0 H Seg Neutrophils # Man 0.9 L Lymphocytes # (Manual) 0.5 L PT 20.5 H INR 1.65 H D-Dimer Heparin Anti-Xa Level Sodium 136 L Potassium Chloride Carbon Dioxide BUN 6 L Creatinine Glucose Lactic Acid Magnesium 1.60 L TIBC Transferrin Ferritin Total Bilirubin Direct Bilirubin AST 51 H ALT Alkaline Phosphatase NT-Pro-B Natriuret Pep Total Protein Albumin 2.7 L Vitamin B12 Urine WBC (Auto) Heparin-induced Plt Ab 09/05/17 09/05/17 05:12 05:12 WBC 2.2 L RBC 3.59 L Hgb 11.3 L Hct 34.4 L MCV 96 H MCH MCHC Plt Count 102 L Lymph % (Auto) [place] % (Auto) Lymph # Seg Neutrophils % Seg Neuts % (Manual) Lymphocytes % (Manual) Monocytes % (Manual) Eosinophils % (Manual) Basophils % (Manual) Seg Neutrophils # Man Lymphocytes # (Manual) PT INR D-Dimer Heparin Anti-Xa Level Sodium Potassium Chloride Carbon Dioxide 21 L BUN 6 L Creatinine Glucose Lactic Acid Magnesium TIBC Transferrin Ferritin Total Bilirubin Direct Bilirubin AST ALT Alkaline Phosphatase NT-Pro-B Natriuret Pep Total Protein Albumin Vitamin B12 Urine WBC (Auto) Heparin-induced Plt Ab
[2017-09-05] MEDS: COUMADIN PO SCH (17:18)
[2017-09-06] MEDS: FEOSOL PO SCH ×2 (00:54→10:40)
[2017-09-06] MEDS: LEVAQUIN PO SCH (00:55)
[2017-09-06] MEDS: KEPPRA PO SCH ×2 (00:55→10:40)
[2017-09-06] MEDS: LOPRESSOR PO SCH ×2 (00:56→10:40)
[2017-09-06 06:46] LABS: INR 2.45 (0.87-1.13)
[2017-09-06] MEDS ORDERED: VITAMIN B-1 PO SCH (10:00)
[2017-09-06] MEDS ORDERED: FOLVITE PO SCH (10:00)
[2017-09-06] MEDS: ARIXTRA SUB-Q SCH (10:39)
[2017-09-06] MEDS: NON-FORMULARY (Elviteg/Cob/Emtri/Tenof Alafen [Genvoya Tablet] 1 EACH) PO SCH (10:40)
[2017-09-06] MEDS: ZESTRIL PO SCH (10:41)
--- NOTE | 2017-09-06 13:31 | Discharge Summary ---
Providers - Providers Date of Admission: 08/30/17 23:16 Date of discharge: 09/06/17 Attending physician: ART ACKERMAN MD 08/31/17 06:17 Consult to Physician [CONS] Routine Consulting Provider: FINN HIGH Reason For Exam: SEIZURE ATTACKS Place consult to:: office Notified:: yes Phone number called:: [phone] Was contact made?: Yes If yes, spoke with:: Priyanka Time called:: 10:10 08/31/17 20:08 Consult to Physician [CONS] Routine Consulting Provider: NATASHA GOMEZ Reason For Exam: Alcoholic hepatits Place consult to:: Eric Notified:: PLEASE CALL MD IN AM Was contact made?: Yes Comment:: said to place patient on list 08/31/17 20:09 Consult to Physician [CONS] Routine Consulting Provider: SEBAS HINDS Reason For Exam: GI BLEED Place consult to:: Dr. Morse Notified:: PLEASE CALL MD IN AM Was contact made?: Yes Comment:: Dr. storey to place patient on list 08/31/17 20:10 Consult to Physician [CONS] Routine Consulting Provider: JAMIN CHAPIN Reason For Exam: heart failure in a pt with alcohol live disease Place consult to:: Roberta Notified:: Y Comment:: ADDED TO LIST 09/01/17 13:01 Consult to Physician [CONS] Routine Consulting Provider: JOHANNY HENRY Reason For Exam: HIT Place consult to:: [place] Notified:: office Was contact made?: Yes 09/03/17 10:12 Consult to Physician [CONS] Routine Consulting Provider: DIOMEDES SEPULVEDA Reason For Exam: ivc filter Place consult to:: Dr. 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 He was also noted to have alcoholic hepatitis. Patient reports no hx of IV drug use. Admits to drinking 1/2 a pint and a couple of beers daily. Patient was treated for seizure, alcohol abuse, sepsis and bilateral lower extremity DVT. CTA of the chest was negative for PE given patient's non complaint with medications IVC filter was placed and patient was on fondaparinux and warfarin overlap. His INR becomes therapeutic. Patient has pancytopenia could be due to his alcohol abuse, HIV ; hematology oncology was consulted and did CT-guided bone marrow biopsy and result was pending at the time of discharge was a plantar follow-up as an outpatient with hematology oncology. Patient was extensively counseled about medication adherence, alcohol abuse, to follow with ID for his HIV treatment. Follow-up with vascular surgery in 3 months for possible removal of his IVC filter. Patient hemodynamically stable of the time of discharge. Patient's medications were reviewed and appropriate medications prescription was given. Patient's questions and concerns were addressed at the bedside. Disposition: DC-01 TO HOME OR SELFCARE Time spent for discharge: 31 minutes - Discharge Diagnoses (1) Alcohol abuse Status: Acute (2) HIV (human immunodeficiency virus infection) Status: Acute (3) Hypertension Status: Acute Qualifiers: Hypertension type: unspecified Qualified Code(s): I10 - Essential (primary ) hypertension (4) Seizure Status: Acute Core Measure Documentation - Palliative Care Palliative Care/ Comfort Measures: Not Applicable - Core Measures Any of the following diagnoses?: DVT/PE - VTE Discharge Requirements Deep Vein Thrombosis/Pulmonary Embolism Present on Admission: Yes Has pt received <5 days of overlap therapy or INR<2.0: No Anticoagulant overlap therapy prescribed at discharge: No Contraindication No Overlap Therapy order at DC: Not Indicated Exam - Physical Exam Narrative exam: Not in cardiopulmonary distress. The patient is emaciated. Vital signs as documented. Head exam is unremarkable. No scleral icterus . Neck is without jugular venous distension, thyromegaly, or carotid bruits. Lungs are clear to auscultation. Cardiac exam reveals regular rate and Rhythm. First and second heart sounds normal. No murmurs, rubs or gallops. Abdominal exam reveals normal bowel sounds, no masses, no organomegaly and no aortic enlargement. Extremities are nonedematous and both femoral and pedal pulses are normal. 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 No focal weakness. - Constitutional Vitals: Temp Pulse Resp BP Pulse Ox 98.9 F 68 18 137/91 97 09/06/17 05:07 09/06/17 11:00 09/06/17 05:07 09/06/17 05:07 09/06/17 10:00 Plan Activity: no restrictions Weight Bearing Status: Full Weight Bearing Diet: low salt Follow up with: PRIMARY CARE, [Primary Care Provider] - 3-5 Days DIOMEDES SEPULVEDA MD [Staff Physician] - 12/08/17 JOHANNY HENRY MD [Staff Physician] - 10 Days Forms: Warfarin Discharge Instruction Prescriptions: Levofloxacin [Levaquin TAB] 500 mg PO QDAY #2 tablet Lisinopril [Zestril TAB] 40 mg PO QDAY #30 tablet Warfarin [Coumadin] 7.5 mg PO DAILY@1700 #30 tablet
[2017-09-06 13:42] VITALS: BP 159/91
[2017-09-11 13:02] LABS: CYTOMETRY FIRST MARKER SCANNED INTO MED REC; FLOW CYTOMETRY >16 SCANNED INTO MED REC
== END 2017-09-06 14:45 | disposition home or self-care (01) | DRG 969 ==
LOC: ED 15:51 → 4A 23:16
PROVIDERS: ADMIT Internal Medicine; ATTEND Internal Medicine
PROC: 06H03DZ Insertion of Intraluminal Device into Inferior Vena Cava, Percutaneous Approach (ICD-10-PCS; principal; 2017-09-03)
PROC: B5191ZZ Fluoroscopy of Inferior Vena Cava using Low Osmolar Contrast (ICD-10-PCS; 2017-09-03)
PROC: B51 Imaging, Veins, Fluoroscopy (ICD-10-PCS; 2017-09-03)
PROC: 07DR3ZX Extraction of Iliac Bone Marrow, Percutaneous Approach, Diagnostic (ICD-10-PCS; 2017-09-04)
DX: B20 Human immunodeficiency virus [HIV] disease (principal); A41.9 Sepsis, unspecified organism; I50.23 Acute on chronic systolic (congestive) heart failure; E43 Unspecified severe protein-calorie malnutrition; N39.0 Urinary tract infection, site not specified; I82.403 Acute embolism and thrombosis of unspecified deep veins of lower extremity, bilateral; I48.92 Unspecified atrial flutter; I11.0 Hypertensive heart disease with heart failure; N17.9 Acute kidney failure, unspecified; I42.9 Cardiomyopathy, unspecified; Z68.1 Body mass index [BMI] 19.9 or less, adult; E87.6 Hypokalemia; K29.00 Acute gastritis without bleeding; G40.909 Epilepsy, unspecified, not intractable, without status epilepticus; F10.10 Alcohol abuse, uncomplicated; K70.10 Alcoholic hepatitis without ascites; Z91.19 Patient's noncompliance with other medical treatment and regimen; Z82.49 Family history of ischemic heart disease and other diseases of the circulatory system; Z81.1 Family history of alcohol abuse and dependence
CPT/HCPCS: 36415; 37191; 70470; 71010; 71275; 74177; 76705; 76937; 78452; 80048; 80053; 80074; 80307; 80320; 81001; 82140; 82550; 82553; 82607; 82728; 82747; 83550; 83690; 83735; 83880; 84100; 84439; 84443; 84484; 85007; 85014; 85018; 85025; 85027; 85045; 85049; 85097; 85379; 85520; 85610; 85730; 86022; 87040; 87086; 87102; 87220; 87517; 88161; 88184; 88185; 88230; 88291; 88305; 88311; 88313; 93005; 93010; 93017; 93306; 96365; 96366; 96367; 96375; 96376; 99406; A9502; C1751; C1769; C1880; C1887; G0364; G0480; J0690; J0696; J1644; J1652; J1940; J1953; J1956; J2060; J2250; J2270; J2405; J2543; J2765; J2785; J3010; J3411; J3475; J7030; J7040; J7050; Q9966; Q9967